=== PATIENT | female | born 1935 | race Hispanic/Latino ===

== ENCOUNTER 2018-12-20 10:22 | Inpatient (IN) | payer MEDICARE ==
[2018-12-20] MEDS ORDERED: ZOFRAN IV ONE (11:31)
[2018-12-20] MEDS ORDERED: MORPHINE IV ONE (11:31)
[2018-12-20 11:54] LABS: Hematocrit 43.1 % (30.3-42.9); Hemoglobin 14.2 gm/dl (10.1-14.3); Mean Corpuscular HGB Conc 33 % (30-34); Mean Corpuscular Volume 92 fl (79-97); Platelet Count 276 K/mm3 (140-440); Red Blood Count 4.68 M/mm3 (3.65-5.03); Red Cell Distribution Width 13.6 % (13.2-15.2)
--- NOTE | 2018-12-20 12:04 | Emergency Department Report ---
ED General Adult HPI - General Chief complaint: Abdominal Pain Stated complaint: ABD PAIN/NAUSEA,VOMITING Time Seen by Provider: 12/20/18 10:42 Source: EMS Mode of arrival: Stretcher Limitations: No Limitations - History of Present Illness Initial comments: Patient presents to the emergency department with a chief complaint of diffuse abdominal pain that started this morning. Patient complains of nausea and vomiting as well. Patient describes the pain as sharp in nature with radiation into the right upper quadrant. Patient denies any chest pain, shows blood, or headache. -: Sudden Location: abdomen Radiation: abdomen Severity scale (0 -10): 6 Quality: stabbing Consistency: constant Improves with: none Worsens with: none Associated Symptoms: denies other symptoms Treatments Prior to Arrival: none - Related Data Previous Rx's Medication Instructions Recorded Last Taken Type Albuterol Sulfate [Proair 2 puff IH Q4HR PRN #1 aer.pow.ba 01/24/16 Unknown Rx Respiclick] Pseudoephed/Codeine/Guaifen 10 ml PO Q4H PRN #100 ml 01/24/16 Unknown Rx [Cheratussin DAC 30-10-100 mg/5 ml] Azithromycin [Zithromax] 250 mg PO QDAY #6 tablet 01/25/16 Unknown Rx Prednisone [predniSONE 10 mg 10 mg PO .TAPER #1 tab.ds.pk 01/25/16 Unknown Rx (6-Day Pack, 21 Tabs)] Allergies Allergy/AdvReac Type Severity Reaction Status Date / Time No Known Allergies Allergy Verified 12/20/18 10:27 ED Review of Systems ROS: Stated complaint: ABD PAIN/NAUSEA,VOMITING Other details as noted in HPI Constitutional: denies: chills, fever Eyes: denies: eye pain, eye discharge, vision change ENT: denies: ear pain, throat pain Respiratory: denies: cough, shortness of breath, wheezing Cardiovascular: denies: chest pain, palpitations Endocrine: no symptoms reported Gastrointestinal: abdominal pain. denies: nausea, diarrhea Genitourinary: denies: urgency, dysuria, discharge Musculoskeletal: denies: back pain, joint swelling, arthralgia Skin: denies: rash, lesions Neurological: denies: headache, weakness, paresthesias Psychiatric: denies: anxiety, depression Hematological/Lymphatic: denies: easy bleeding, easy bruising ED Past Medical Hx - Past Medical History Previous Medical History?: Yes Hx Hypertension: Yes Hx Diabetes: Yes Hx GERD: Yes Additional medical history: ESOPHEGEAL - Surgical History Past Surgical History?: Yes Additional Surgical History: HYSTERECTOMY - Social History Smoking Status: Never Smoker Substance Use Type: None - Medications Home Medications: Home Medications Medication Instructions Recorded Confirmed Last Taken Type Albuterol Sulfate [Proair 2 puff IH Q4HR PRN #1 aer.pow.ba 01/24/16 Unknown Rx Respiclick] Pseudoephed/Codeine/Guaifen 10 ml PO Q4H PRN #100 ml 01/24/16 Unknown Rx [Cheratussin DAC 30-10-100 mg/5 ml] Azithromycin [Zithromax] 250 mg PO QDAY #6 tablet 01/25/16 Unknown Rx Prednisone [predniSONE 10 mg 10 mg PO .TAPER #1 tab.ds.pk 01/25/16 Unknown Rx (6-Day Pack, 21 Tabs)] ED Physical Exam - General Limitations: No Limitations General appearance: alert, in no apparent distress - Head Head exam: Present: atraumatic, normocephalic - Eye Eye exam: Present: normal appearance - ENT ENT exam: Present: mucous membranes moist - Neck Neck exam: Present: normal inspection - Respiratory Respiratory exam: Present: normal lung sounds bilaterally. Absent: respiratory distress - Cardiovascular Cardiovascular Exam: Present: regular rate, normal rhythm. Absent: systolic murmur, diastolic murmur, rubs, gallop - GI/Abdominal GI/Abdominal exam: Present: soft, tenderness (diffusely tender to palpation), normal bowel sounds. Absent: distended - Extremities Exam Extremities exam: Present: normal inspection - Back Exam Back exam: Present: normal inspection - Neurological Exam Neurological exam: Present: alert, oriented X3, CN II-XII intact. Absent: motor sensory deficit - Psychiatric Psychiatric exam: Present: normal affect, normal mood - Skin Skin exam: Present: warm, dry, intact, normal color. Absent: rash ED Course Vital Signs 12/20/18 10:27 Temperature 97.6 F Pulse Rate 58 L Respiratory 20 Rate Blood Pressure 131/69 [Left] O2 Sat by Pulse 100 Oximetry ED Medical Decision Making - Lab Data Result diagrams: 12/20/18 11:34 12/20/18 11:34 Lab Results 07/29/19 07/29/19 07/29/19 Range/Units 11:34 11:34 11:34 WBC 20.2 H (4.5-11.0) K/mm3 RBC 4.68 (3.65-5.03) M/mm3 Hgb 14.2 (10.1-14.3) gm/dl Hct 43.1 H (30.3-42.9) % MCV 92 (79-97) fl MCH 30 (28-32) pg MCHC 33 (30-34) % RDW 13.6 (13.2-15.2) % Plt Count 276 (140-440) K/mm3 Add Manual Diff Complete Total Counted 100 Seg Neuts % (Manual) 82.0 H (40.0-70.0) % Band Neutrophils % 1.0 % Lymphocytes % (Manual) 3.0 L (13.4-35.0) % Reactive Lymphs % (Man) 0 % Monocytes % (Manual) 13.0 H (0.0-7.3) % Eosinophils % (Manual) 1.0 (0.0-4.3) % Basophils % (Manual) 0 (0.0-1.8) % Metamyelocytes % 0 % Myelocytes % 0 % Promyelocytes % 0 % Blast Cells % 0 % Nucleated RBC % Not Reportable Seg Neutrophils # Man 16.6 H (1.8-7.7) K/mm3 Band Neutrophils # 0.2 K/mm3 Lymphocytes # (Manual) 0.6 L (1.2-5.4) K/mm3 Abs React Lymphs (Man) 0.0 K/mm3 Monocytes # (Manual) 2.6 H (0.0-0.8) K/mm3 Eosinophils # (Manual) 0.2 (0.0-0.4) K/mm3 Basophils # (Manual) 0.0 (0.0-0.1) K/mm3 Metamyelocytes # 0.0 K/mm3 Myelocytes # 0.0 K/mm3 Promyelocytes # 0.0 K/mm3 Blast Cells # 0.0 K/mm3 WBC Morphology Not Reportable Hypersegmented Neuts Not Reportable Hyposegmented Neuts Not Reportable Hypogranular Neuts Not Reportable Smudge Cells Not Reportable Toxic Granulation Not Reportable Toxic Vacuolation Not Reportable Dohle Bodies Not Reportable Pelger-Huet Anomaly Not Reportable Maryjane Rods Not Reportable Platelet Estimate Consistent w auto Clumped Platelets Not Reportable Plt Clumps, EDTA Not Reportable Large Platelets Not Reportable Giant Platelets Not Reportable Platelet Satelliting Not Reportable Plt Morphology Comment Not Reportable RBC Morphology Normal Dimorphic RBCs Not Reportable Polychromasia Not Reportable Hypochromasia Not Reportable Poikilocytosis Not Reportable Anisocytosis Not Reportable Microcytosis Not Reportable Macrocytosis Not Reportable Spherocytes Not Reportable Pappenheimer Bodies Not Reportable Sickle Cells Not Reportable Target Cells Not Reportable Tear Drop Cells Not Reportable Ovalocytes Not Reportable Helmet Cells Not Reportable [place] Bodies Not Reportable [place] Rings Not Reportable [place] Cells Not Reportable Bite Cells Not Reportable Crenated Cell Not Reportable Elliptocytes Not Reportable Acanthocytes (Spur) Not Reportable Rouleaux Not Reportable Hemoglobin C Crystals Not Reportable Schistocytes Not Reportable Malaria parasites Not Reportable Flo Bodies Not Reportable Hem Pathologist Commnt No PT 13.3 (12.2-14.9) Sec. INR 1.04 (0.87-1.13) APTT 22.4 L (24.2-36.6) Sec. Sodium 141 (137-145) mmol/L Potassium 4.2 (3.6-5.0) mmol/L Chloride 101.1 (98-107) mmol/L Carbon Dioxide 28 (22-30) mmol/L Anion Gap 16 mmol/L BUN 12 (7-17) mg/dL Creatinine 0.6 L (0.7-1.2) mg/dL Estimated GFR > 60 ml/min BUN/Creatinine Ratio 20 % Glucose 167 H (65-100) mg/dL Calcium 10.3 H (8.4-10.2) mg/dL Total Bilirubin 1.80 H (0.1-1.2) mg/dL AST 204 H (5-40) units/L ALT 108 H (7-56) units/L Alkaline Phosphatase 84 (35-129) units/L Total Protein 7.8 (6.3-8.2) g/dL Albumin 4.1 (3.9-5) g/dL Albumin/Globulin Ratio 1.1 % Lipase 2716 H (13-60) units/L Urine Color (Yellow) Urine Turbidity (Clear) Urine pH (5.0-7.0) Ur Specific [place] (1.003-1.030) Urine Protein (Negative) mg/dL Urine Glucose (UA) (Negative) mg/dL Urine Ketones (Negative) mg/dL Urine Blood (Negative) Urine Nitrite (Negative) Urine Bilirubin (Negative) Urine Urobilinogen (<2.0) mg/dL Ur Leukocyte Esterase (Negative) Urine WBC (Auto) (0.0-6.0) /HPF Urine RBC (Auto) (0.0-6.0) /HPF 12/20/18 Range/Units Unknown WBC (4.5-11.0) K/mm3 RBC (3.65-5.03) M/mm3 Hgb (10.1-14.3) gm/dl Hct (30.3-42.9) % MCV (79-97) fl MCH (28-32) pg MCHC (30-34) % RDW (13.2-15.2) % Plt Count (140-440) K/mm3 Add Manual Diff Total Counted Seg Neuts % (Manual) (40.0-70.0) % Band Neutrophils % % Lymphocytes % (Manual) (13.4-35.0) % Reactive Lymphs % (Man) % Monocytes % (Manual) (0.0-7.3) % Eosinophils % (Manual) (0.0-4.3) % Basophils % (Manual) (0.0-1.8) % Metamyelocytes % % Myelocytes % % Promyelocytes % % Blast Cells % % Nucleated RBC % Seg Neutrophils # Man (1.8-7.7) K/mm3 Band Neutrophils # K/mm3 Lymphocytes # (Manual) (1.2-5.4) K/mm3 Abs React Lymphs (Man) K/mm3 Monocytes # (Manual) (0.0-0.8) K/mm3 Eosinophils # (Manual) (0.0-0.4) K/mm3 Basophils # (Manual) (0.0-0.1) K/mm3 Metamyelocytes # K/mm3 Myelocytes # K/mm3 Promyelocytes # K/mm3 Blast Cells # K/mm3 WBC Morphology Hypersegmented Neuts Hyposegmented Neuts Hypogranular Neuts Smudge Cells Toxic Granulation Toxic Vacuolation Dohle Bodies Pelger-Huet Anomaly Maryjane Rods Platelet Estimate Clumped Platelets Plt Clumps, EDTA Large Platelets Giant Platelets Platelet Satelliting Plt Morphology Comment RBC Morphology Dimorphic RBCs Polychromasia Hypochromasia Poikilocytosis Anisocytosis Microcytosis Macrocytosis Spherocytes Pappenheimer Bodies Sickle Cells Target Cells Tear Drop Cells Ovalocytes Helmet Cells [place]hat[place] Bodies [place] Rings [place] Cells Bite Cells Crenated Cell Elliptocytes Acanthocytes (Spur) Rouleaux Hemoglobin C Crystals Schistocytes Malaria parasites Flo Bodies Hem Pathologist Commnt PT (12.2-14.9) Sec. INR (0.87-1.13) APTT (24.2-36.6) Sec. Sodium (137-145) mmol/L Potassium (3.6-5.0) mmol/L Chloride (98-107) mmol/L Carbon Dioxide (22-30) mmol/L Anion Gap mmol/L BUN (7-17) mg/dL Creatinine (0.7-1.2) mg/dL Estimated GFR ml/min BUN/Creatinine Ratio % Glucose (65-100) mg/dL Calcium (8.4-10.2) mg/dL Total Bilirubin (0.1-1.2) mg/dL AST (5-40) units/L ALT (7-56) units/L Alkaline Phosphatase (35-129) units/L Total Protein (6.3-8.2) g/dL Albumin (3.9-5) g/dL Albumin/Globulin Ratio % Lipase (13-60) units/L Urine Color Yellow (Yellow) Urine Turbidity Clear (Clear) Urine pH 5.0 (5.0-7.0) Ur Specific [place] 1.014 (1.003-1.030) Urine Protein 30 mg/dl (Negative) mg/dL Urine Glucose (UA) Neg (Negative) mg/dL Urine Ketones Neg (Negative) mg/dL Urine Blood Neg (Negative) Urine Nitrite Neg (Negative) Urine Bilirubin Neg (Negative) Urine Urobilinogen < 2.0 (<2.0) mg/dL Ur Leukocyte Esterase Neg (Negative) Urine WBC (Auto) 1.0 (0.0-6.0) /HPF Urine RBC (Auto) 1.0 (0.0-6.0) /HPF - Radiology Data Radiology results: report reviewed - Medical Decision Making Discussed results with patient Critical Care Time: Yes Critical care time in (mins) excluding proc time.: 35 Critical care attestation.: If time is entered above; I have spent that time in minutes in the direct care of this critically ill patient, excluding procedure time. ED Disposition Clinical Impression: Pancreatitis Disposition: [id number] OP ADMIT IP TO THIS HOSP Is pt being admited?: Yes Does the pt Need Aspirin: No Condition: Fair
[2018-12-20 12:06] LABS: INR 1.04 (0.87-1.13); Partial Thromboplastin Time 22.4 Sec. (24.2-36.6)
[2018-12-20 12:17] LABS: Alanine Aminotransferase 108 units/L (7-56); Albumin 4.1 g/dL (3.9-5); BUN/Creatinine Ratio 20; Blood Urea Nitrogen 12 mg/dL (7-17); Calcium 10.3 mg/dL (8.4-10.2); Hemolysis Index 16
[2018-12-20 12:33] LABS: Bilirubin,Urine NEG (Negative); Blood,Urine NEG (Negative); Color,Urine Yellow (Yellow); Urobilinogen,Urine < 2.0 mg/dL (<2.0)
[2018-12-20 12:44] LABS: Band Neutrophils # (Manual) 0.2 K/mm3; Basophils % (Manual) 0 % (0.0-1.8); Platelet Estimate Consistent w Auto; RBC Morphology Normal; Total Cells Counted 100
--- NOTE | 2018-12-20 14:49 | Cat Scan Report ---
CT ABDOMEN AND PELVIS WITH CONTRAST HISTORY: Abdominal pain and back pain for one day. Nausea vomiting and diarrhea. COMPARISON: None. TECHNIQUE: Axial CT images were obtained through the abdomen and pelvis after 100 cc of Omnipaque 300 intravenously. Sagittal and coronal reformatted images. All CT scans at this location are performed using CT dose reduction for ALARA by means of automated exposure control. FINDINGS: CT ABDOMEN: Lung Bases: Mild hypoventilatory changes are noted in the lower lobes. Normal heart size. Liver: No significant abnormality. Biliary: Multiple calcified gallstones are identified in the gallbladder measuring up to 1 cm. No janene iary dilatation. Spleen: Unenlarged. Numerous calcified splenic granulomas are noted. Pancreas: The pancreatic parenchyma is within normal limits on CT. There is no obvious mass or pseudo cyst. There is however moderate fluid surrounding the pancreatic bed extending into the pararenal spa gopi and perihepatic spaces. Adrenals: No significant abnormality. Kidneys: No significant abnormality. 2 cm cyst at the inferior pole of the right kidney is noted. Lymphatics: No lymphadenopathy. Vasculature: Mild aortic calcifications. No aneurysm or dissection. Bowel/Peritoneum: No significant abnormality. No evidence for bowel obstruction or free air. The appe ndix is not confidently identified. CT PELVIS: : No significant abnormality. Osseous Structures: Mild osteopenia and degenerative changes in the lower lumbar spine. No fracture o r suspicious bony lesion. Additional Findings: None IMPRESSION: Findings suggestive of acute pancreatitis. Cholelithiasis. Right renal cyst. Signer Name: Aristeo Caldera Jr, MD Signed: 12/20/2018 2:44 PM Workstation Name: [id number]
[2018-12-20] MEDS ORDERED: NACL 0.9% 1000 ML 2,000 ML IV ONE (15:31)
[2018-12-20] MEDS ORDERED: ZOSYN/NS 4.5GM/100ML 4.5 GM/100 ML VIAL IV ONE (15:31)
[2018-12-20] MEDS ORDERED: TYLENOL PO PRN (15:48)
[2018-12-20] MEDS ORDERED: SODIUM CHLORIDE FLUSH SYRINGE 10 ML IV PRN (15:48)
[2018-12-20] MEDS ORDERED: PROVENTIL IH PRN (15:48)
--- NOTE | 2018-12-20 15:48 | History and Physical Report ---
History of Present Illness Chief complaint: My stomach is hurting me really bad History of present illness: 83 YO Female with HTN, DM, GERD presents to ED for evaluation of abdominal pain. Pt states that she has experienced pain in her abdomen over the past 1 day with persistently worsening symptoms over the same time frame. Pt states that pain is 6-7/10, sharp, localized to the RUQ with radiation to her back, no alleviating factors, worsened with meals. EMS notified and upon arrival the patient was found to be in distress and transported to [facility]. Pt seen and evaluated in ED and found to have Acute Pancreatitis with a Zwingle Score of 2 on admission, as well as SIRS. Pt denies fever, chills, CP, Palpitations, Hemoptysis, BRBPR, Ingestion of food/water from new/different sources. Pt admitted to [facility] and treated with supportive care. No prior admission for review. No medication listed at time of admission for reconciliation. Past History Past Medical History: diabetes, GERD, hypertension Past Surgical History: hysterectomy Social history: , lives with family. denies: smoking, alcohol abuse, prescription drug abuse Family history: diabetes, hypertension Medications and Allergies Allergies Allergy/AdvReac Type Severity Reaction Status Date / Time No Known Allergies Allergy Verified 12/20/18 10:27 Home Medications Medication Instructions Recorded Confirmed Last Taken Type Levothyroxine [Synthroid] 50 mcg PO QAM 12/20/18 12/20/18 12/19/18 History Lisinopril [Zestril TAB] 2.5 mg PO QDAY 12/20/18 12/20/18 12/19/18 History Propranolol HCl 60 mg PO QDAY 12/20/18 12/20/18 12/19/18 History metFORMIN [Glucophage] 500 mg PO BID 12/20/18 12/20/18 12/19/18 History raNITIdine HCl [Zantac] 150 mg PO BID 12/20/18 12/20/18 12/19/18 History Active Meds: Active Medications Sodium Chloride (Nacl 0.9% 1000 Ml) 2,000 mls @ 999 mls/hr IV BOLUS ONE Stop: 12/20/18 17:31 Last Admin: 12/20/18 15:45 Dose: 999 mls/hr Documented by: Piperacillin Sod/Tazobactam Sod (Zosyn/Ns 4.5gm/100ml) 4.5 gm in 100 mls @ 200 mls/hr IV ONCE ONE Stop: 12/20/18 16:00 Last Admin: 12/20/18 15:45 Dose: 200 mls/hr Documented by: Review of Systems Constitutional: no weight loss, no weight gain, no fever, no chills Ears, nose, mouth and throat: no ear pain, no ear discharge, no tinnitis, no decreased hearing, no nose pain Breasts: no change in shape, no swelling, no mass Cardiovascular: no chest pain, no orthopnea, no palpitations, no rapid/irregular heart beat, no edema, no syncope Respiratory: no cough, no cough with sputum, no excessive sputum, no hemoptysis, no shortness of breath Gastrointestinal: abdominal pain, nausea, vomiting, no diarrhea, no constipation, no change in bowel habits Genitourinary Female: no pelvic pain, no flank pain, no menorrhagia, no dysuria, no urgency, no stress incontinence, no post void dribbling, no incomplete emptying Menstruation: no premenarcheal, no post hysterectomy, no ammenorrhea, no ammenorrhea on BC, no period normal, no period spotting Rectal: no pain, no incontinence, no bleeding Musculoskeletal: no neck stiffness, no neck pain, no shooting arm pain, no low back pain, no shooting leg pain Integumentary: no rash, no pruritis, no redness, no sores, no wounds Neurological: no transient paralysis, no paralysis, no weakness, no parathesias, no numbness, no tingling, no seizures Psychiatric: no anxiety, no memory loss, no change in sleep habits, no sleep disturbances, no insomnia, no hypersomnia, no change in appetite Endocrine: no cold intolerance, no heat intolerance, no polydipsia, no polyuria Hematologic/Lymphatic: no easy bruising, no easy bleeding Allergic/Immunologic: no urticaria, no allergic rhinitis, no wheezing, no persistent infections, no anaphylaxis Exam - Constitutional Vitals: Temp Pulse Resp BP Pulse Ox 97.6 F 58 L 20 131/69 100 12/20/18 10:27 12/20/18 10:27 12/20/18 10:27 12/20/18 10:27 12/20/18 10:27 General appearance: Present: mild distress - EENT Eyes: Present: PERRL ENT: hearing intact, clear oral mucosa - Neck Neck: Present: supple, normal ROM - Respiratory Respiratory effort: normal Respiratory: bilateral: CTA - Cardiovascular Heart Sounds: Present: S1 & S2. Absent: rub, click - Extremities Extremities: pulses symmetrical, No edema Peripheral Pulses: within normal limits - Abdominal General gastrointestinal: Present: soft, non-tender, non-distended, normal bowel sounds Female genitourinary: Present: normal - Integumentary Integumentary: Present: clear, warm, dry - Musculoskeletal Musculoskeletal: gait normal, strength equal bilaterally - Psychiatric Psychiatric: appropriate mood/affect, intact judgment & insight - Neurologic Neurologic: CNII-XII intact, moves all extremities Results - Labs CBC & Chem 7: 12/20/18 11:34 12/20/18 11:34 Labs: Abnormal lab results 12/20/18 12/20/18 12/20/18 Range/Units 11:34 11:34 11:34 WBC 20.2 H (4.5-11.0) K/mm3 Hct 43.1 H (30.3-42.9) % Seg Neuts % (Manual) 82.0 H (40.0-70.0) % Lymphocytes % (Manual) 3.0 L (13.4-35.0) % Monocytes % (Manual) 13.0 H (0.0-7.3) % Seg Neutrophils # Man 16.6 H (1.8-7.7) K/mm3 Lymphocytes # (Manual) 0.6 L (1.2-5.4) K/mm3 Monocytes # (Manual) 2.6 H (0.0-0.8) K/mm3 APTT 22.4 L (24.2-36.6) Sec. Creatinine 0.6 L (0.7-1.2) mg/dL Glucose 167 H (65-100) mg/dL Calcium 10.3 H (8.4-10.2) mg/dL Total Bilirubin 1.80 H (0.1-1.2) mg/dL AST 204 H (5-40) units/L ALT 108 H (7-56) units/L Lipase 2716 H (13-60) units/L Assessment and Plan - Patient Problems (1) SIRS (systemic inflammatory response syndrome) Current Visit: Yes Status: Acute Plan to address problem: IVF resuscitations, secondary to Acute pancreatitis, IV antibiotic therapy x 1 dose, (2) Pancreatitis Current Visit: Yes Status: Acute Qualifiers: Acute pancreatitis complication: unspecified Plan to address problem: IVF resuscitation, bowel rest, Abdominal ultrasound to evaluated for gallstone pancreatitis, pain control, anti emetic therapy, CT Abdomen Pelvis. (3) HTN (hypertension) Current Visit: Yes Status: Acute Qualifiers: Hypertension type: essential hypertension Qualified Code(s): I10 - Karon al (primary) hypertension Plan to address problem: Monitor bp q shift, continue medical management. (4) Diabetes Current Visit: Yes Status: Acute Plan to address problem: ADA diet, insulin, accu check (5) GERD (gastroesophageal reflux disease) Current Visit: Yes Status: Acute Qualifiers: Esophagitis presence: without esophagitis Qualified Code(s): K21.9 - Gastro-esophageal reflux disease without esophagitis Plan to address problem: PPI therapy, (6) DVT prophylaxis Current Visit: Yes Status: Acute Plan to address problem: SCD to BLE while in bed,
[2018-12-20] MEDS ORDERED: NACL 0.45% 2,000 ML IV SCH (16:00)
--- NOTE | 2018-12-20 17:41 | Ultrasound Report ---
ULTRASOUND ABDOMEN, COMPLETE INDICATION: Gallstones. Acute generalized abdominal pain with nausea and vomiting. COMPARISON: CT abdomen/pelvis from today.. FINDINGS: Pancreas: Pancreas appears slightly echogenic but there is no obvious mass or ductal dilatation ident ified.. Abdominal Aorta: No significant abnormality. IVC: No significant abnormality. Liver: The liver measures 14.4 cm in length. Liver is mildly echogenic in relation to the right morales l cortex with no discrete mass identified. Normal hepatopedal blood flow in the main portal vein. Gallbladder: There is cholelithiasis without gallbladder wall thickening. Bile ducts: No significant abnormality. Common bile duct measures 4 mm. Kidneys: Right: 10 cm in length. No significant abnormality. Left: 10.4 cm in length. No signific ant abnormality. Spleen: No significant abnormality. Free fluid: None. Additional Findings: None. IMPRESSION: 1. Findings of acute pancreatitis better seen on the CT abdomen from today. Incidentally, there is al so choledocholithiasis at the level of the ampulla best seen on the CT exam likely causing the pancre atitis. 2. Cholelithiasis without evidence of cholecystitis. Signer Name: Remi Buenrostro MD Signed: 12/20/2018 5:36 PM Workstation Name: [id number]
[2018-12-20] MEDS ORDERED: DILAUDID ONE (19:09)
[2018-12-20] MEDS: DILAUDID IV PRN ×2 (19:12→23:05)
[2018-12-20] MEDS: ZOFRAN IV PRN (23:04)
[2018-12-20] MEDS: NACL 0.45% 1000 ML 1,000 ML IV SCH (23:06)
[2018-12-20] MEDS: SODIUM CHLORIDE FLUSH SYRINGE 10 ML IV SCH (23:07)
[2018-12-21] MEDS: DILAUDID IV PRN ×4 (04:38→17:07)
[2018-12-21] MEDS: NACL 0.45% 1000 ML 1,000 ML IV SCH (08:30)
[2018-12-21] MEDS: ROCEPHIN/NS 1 GM/50 ML 1 GM/50 ML BAG IV SCH (09:44)
[2018-12-21] MEDS: SODIUM CHLORIDE FLUSH SYRINGE 10 ML IV SCH ×2 (09:49→22:38)
[2018-12-21 09:55] LABS: Alanine Aminotransferase 61 units/L (7-56); Albumin 3.5 g/dL (3.9-5); BUN/Creatinine Ratio 20; Blood Urea Nitrogen 10 mg/dL (7-17); Calcium 8.7 mg/dL (8.4-10.2); Hemolysis Index 2
[2018-12-21] MEDS ORDERED: PNEUMOVAX 23 IM ONE (12:00)
--- NOTE | 2018-12-21 14:09 | Progress Note ---
Assessment and Plan Assessment and plan: Acute pancreatitis likely due to gallstones Admitted to [facility] unit Dilaudisd iv prn NPO, iv fluids Lipase level improving Cholelithiasis and Choledocholithiasis I discussed with Dr. Zaldivar, GI For ERCP tomorrow also consult Surgeon Hypertension Monitior BP Diabetes mellitus type 2 fingerstick q6h Hypothyroidism Continue Levothyroxine Full code status History Interval history: Abdominal pain Hospitalist Physical - Physical exam Narrative exam: Gen: Not in acute distress, lying in bed, HEENT: Normocephalic, atraumatic Neck: supple, no JVD Heart: S1 and S2 reg, no murmurs, rubs or gallop Lungs: Clear to auscultation, no wheeze Abd: soft, tender mid abdomen, no rebound, normal BS, Ext: No edema, no clubbing, no cyanosis Neuro: Awake,alert, Oriented X 3. No focal neuro signs Psych: normal mood - Constitutional Vitals: Temp Pulse Resp BP Pulse Ox 98.3 F 64 20 144/72 98 12/21/18 02:06 12/21/18 02:06 12/21/18 11:00 12/21/18 02:06 12/21/18 11:00 Results - Labs CBC & Chem 7: 12/20/18 11:34 12/21/18 08:42 Labs: Laboratory Last Values WBC 20.2 K/mm3 (4.5-11.0) H 12/20/18 11:34 RBC 4.68 M/mm3 (3.65-5.03) 12/20/18 11:34 Hgb 14.2 gm/dl (10.1-14.3) 12/20/18 11:34 Hct 43.1 % (30.3-42.9) H 12/20/18 11:34 MCV 92 fl (79-97) 12/20/18 11:34 MCH 30 pg (28-32) 12/20/18 11:34 MCHC 33 % (30-34) 12/20/18 11:34 RDW 13.6 % (13.2-15.2) 12/20/18 11:34 Plt Count 276 K/mm3 (140-440) 12/20/18 11:34 Add Manual Diff Complete 12/20/18 11:34 Total Counted 100 12/20/18 11:34 Seg Neuts % (Manual) 82.0 % (40.0-70.0) H 12/20/18 11:34 1.0 % 12/20/18 11:34 3.0 % (13.4-35.0) L 12/20/18 11:34 Reactive Lymphs % (Man) 0 % 12/20/18 11:34 13.0 % (0.0-7.3) H 12/20/18 11:34 1.0 % (0.0-4.3) 12/20/18 11:34 0 % (0.0-1.8) 12/20/18 11:34 0 % 12/20/18 11:34 0 % 12/20/18 11:34 0 % 12/20/18 11:34 0 % 12/20/18 11:34 Nucleated RBC % Not Reportable 12/20/18 11:34 Seg Neutrophils # Man 16.6 K/mm3 (1.8-7.7) H 12/20/18 11:34 Band Neutrophils # 0.2 K/mm3 12/20/18 11:34 0.6 K/mm3 (1.2-5.4) L 12/20/18 11:34 Abs React Lymphs (Man) 0.0 K/mm3 12/20/18 11:34 2.6 K/mm3 (0.0-0.8) H 12/20/18 11:34 0.2 K/mm3 (0.0-0.4) 12/20/18 11:34 0.0 K/mm3 (0.0-0.1) 12/20/18 11:34 0.0 K/mm3 12/20/18 11:34 0.0 K/mm3 12/20/18 11:34 0.0 K/mm3 12/20/18 11:34 Blast Cells # 0.0 K/mm3 12/20/18 11:34 WBC Morphology Not Reportable 12/20/18 11:34 Hypersegmented Neuts Not Reportable 12/20/18 11:34 Hyposegmented Neuts Not Reportable 12/20/18 11:34 Hypogranular Neuts Not Reportable 12/20/18 11:34 Not Reportable 12/20/18 11:34 Not Reportable 12/20/18 11:34 Not Reportable 12/20/18 11:34 Not Reportable 12/20/18 11:34 Not Reportable 12/20/18 11:34 Not Reportable 12/20/18 11:34 Consistent w auto 12/20/18 11:34 Not Reportable 12/20/18 11:34 Plt Clumps, EDTA Not Reportable 12/20/18 11:34 Not Reportable 12/20/18 11:34 Not Reportable 12/20/18 11:34 Not Reportable 12/20/18 11:34 Plt Morphology Comment Not Reportable 12/20/18 11:34 RBC Morphology Normal 12/20/18 11:34 Dimorphic RBCs Not Reportable 12/20/18 11:34 Not Reportable 12/20/18 11:34 Not Reportable 12/20/18 11:34 Not Reportable 12/20/18 11:34 Not Reportable 12/20/18 11:34 Not Reportable 12/20/18 11:34 Not Reportable 12/20/18 11:34 Not Reportable 12/20/18 11:34 Not Reportable 12/20/18 11:34 Not Reportable 12/20/18 11:34 Not Reportable 12/20/18 11:34 Not Reportable 12/20/18 11:34 Not Reportable 12/20/18 11:34 Not Reportable 12/20/18 11:34 Not Reportable 12/20/18 11:34 Not Reportable 12/20/18 11:34 Not Reportable 12/20/18 11:34 Not Reportable 12/20/18 11:34 Not Reportable 12/20/18 11:34 Not Reportable 12/20/18 11:34 Acanthocytes (Spur) Not Reportable 12/20/18 11:34 Rouleaux Not Reportable 12/20/18 11:34 Not Reportable 12/20/18 11:34 Not Reportable 12/20/18 11:34 Not Reportable 12/20/18 11:34 Not Reportable 12/20/18 11:34 Hem Pathologist Commnt No 12/20/18 11:34 PT 13.3 Sec. (12.2-14.9) 12/20/18 11:34 INR 1.04 (0.87-1.13) 12/20/18 11:34 APTT 22.4 Sec. (24.2-36.6) L 12/20/18 11:34 Sodium 141 mmol/L (137-145) 12/21/18 08:42 Potassium 3.9 mmol/L (3.6-5.0) 12/21/18 08:42 Chloride 102.3 mmol/L (98-107) 12/21/18 08:42 Carbon Dioxide 27 mmol/L (22-30) 12/21/18 08:42 16 mmol/L 12/21/18 08:42 BUN 10 mg/dL (7-17) 12/21/18 08:42 0.5 mg/dL (0.7-1.2) L 12/21/18 08:42 Estimated GFR > 60 ml/min 12/21/18 08:42 20 % 12/21/18 08:42 Glucose 111 mg/dL (65-100) H 12/21/18 08:42 Calcium 8.7 mg/dL (8.4-10.2) D 12/21/18 08:42 1.70 mg/dL (0.1-1.2) H 12/21/18 08:42 AST 56 units/L (5-40) H 12/21/18 08:42 ALT 61 units/L (7-56) H 12/21/18 08:42 71 units/L (35-129) 12/21/18 08:42 301 units/L (91-180) H 12/20/18 11:34 6.7 g/dL (6.3-8.2) 12/21/18 08:42 3.5 g/dL (3.9-5) L 12/21/18 08:42 1.1 % 12/21/18 08:42 494 units/L (13-60) H 12/21/18 04:47 Yellow (Yellow) 12/20/18 Unknown Clear (Clear) 12/20/18 Unknown 5.0 (5.0-7.0) 12/20/18 Unknown Ur Specific [place] 1.014 (1.003-1.030) 12/20/18 Unknown 30 mg/dl mg/dL (Negative) 12/20/18 Unknown Neg mg/dL (Negative) 12/20/18 Unknown Neg mg/dL (Negative) 12/20/18 Unknown Neg (Negative) 12/20/18 Unknown Neg (Negative) 12/20/18 Unknown Neg (Negative) 12/20/18 Unknown < 2.0 mg/dL (<2.0) 12/20/18 Unknown Ur Leukocyte Esterase Neg (Negative) 12/20/18 Unknown 1.0 /HPF (0.0-6.0) 12/20/18 Unknown 1.0 /HPF (0.0-6.0) 12/20/18 Unknown Active Medications - Current Medications Current Medications: Generic Name Dose Route Start Last Admin Trade Name Freq PRN Reason Stop Dose Admin Acetaminophen 650 mg 12/20/18 15:48 Tylenol PO Q4H PRN Pain MILD(1-3)/Fever >100.5/LEE Albuterol 2.5 mg 12/20/18 15:48 Proventil IH Q4HRT PRN Shortness Of Breath Hydromorphone HCl 0.5 mg 12/20/18 15:48 12/21/18 08:30 Dilaudid IV 0.5 mg Q3H PRN Administration Pain , Severe (7-10) Ceftriaxone Sodium 1 gm in 50 mls @ 100 mls/hr 12/21/18 10:00 12/21/18 09:44 Rocephin/Ns 1 Gm/50 Ml IV 100 mls/hr Q24HR ANGEL Administration Protocol Sodium Chloride 1,000 mls @ 100 mls/hr 12/20/18 23:00 12/21/18 08:30 Nacl 0.45% 1000 Ml IV 12/22/18 08:59 100 mls/hr DIRECT ANGEL Administration Ondansetron HCl 4 mg 12/20/18 15:48 12/20/18 23:04 Zofran IV 4 mg Q8H PRN Administration Nausea And Vomiting Pneumococcal Polyvalent Vaccine 0.5 ml 12/22/18 12:00 Pneumovax 23 IM 12/22/18 12:01 .ONCE ONE Sodium Chloride 10 ml 12/20/18 22:00 12/21/18 09:49 Sodium Chloride Flush Syringe 10 Ml IV 10 ml BID ANGEL Administration Sodium Chloride 10 ml 12/20/18 15:48 Sodium Chloride Flush Syringe 10 Ml IV PRN PRN LINE FLUSH
[2018-12-21] MEDS: ZOFRAN IV PRN (14:30)
[2018-12-21] MEDS ORDERED: DILAUDID IV ONE (16:55)
--- NOTE | 2018-12-21 17:01 | Consultation ---
History of Present Illness - Reason for Consult Consult date: 12/21/18 Pancreatitis Requesting physician: YANDEL MCFADDEN - History of Present Illness Mrs. Schilling is an 83-year-old woman who was admitted yesterday with acute onset of right upper quadrant abdominal pain and epigastric pain radiating to the back. She did with nausea. In the emergency room, she was determined to have pancreatitis with a markedly elevated lipase and elevated liver enzymes. CT confirmed fluid around the pancreas suggestive of pancreatitis. CT also showed what appeared to be distal common bile duct filling defects consistent with gallstones. Gallbladder ultrasound was performed which showed gallstones and a nondilated common bile duct. GI consult is obtained for further evaluation. Patient's and son are in room. There is no prior history of abdominal pain or fatty food intolerance. There is no history of weight loss fevers chills or sweats. There is no history of GI bleed. Currently, patient complains of epigastric pain that is waxing and waning. She apparently is not markedly improved compared to yesterday, even though her liver enzymes and pancreatic enzymes are down markedly. Of note, patient has a history of esophageal stricture requiring dilation in the past several times. Last was 4 years ago. She denies dysphagia present. Meds reviewed. Past History Past Medical History: diabetes, GERD, hypertension Past Surgical History: hysterectomy, Other (EGD/dilation - Dr. Sampson, 2015 - for stricture) Social history: , lives with family. denies: smoking, alcohol abuse, prescription drug abuse Family history: diabetes, hypertension Medications and Allergies Allergies Allergy/AdvReac Type Severity Reaction Status Date / Time No Known Allergies Allergy Verified 12/20/18 10:27 Home Medications Medication Instructions Recorded Confirmed Last Taken Type Levothyroxine [Synthroid] 50 mcg PO QAM 12/20/18 12/20/18 12/19/18 History Lisinopril [Zestril TAB] 2.5 mg PO QDAY 12/20/18 12/20/18 12/19/18 History Propranolol HCl 60 mg PO QDAY 12/20/18 12/20/18 12/19/18 History metFORMIN [Glucophage] 500 mg PO BID 12/20/18 12/20/18 12/19/18 History raNITIdine HCl [Zantac] 150 mg PO BID 12/20/18 12/20/18 12/19/18 History Active Meds: Active Medications Acetaminophen (Tylenol) 650 mg PO Q4H PRN PRN Reason: Pain MILD(1-3)/Fever >100.5/LEE Albuterol (Proventil) 2.5 mg IH Q4HRT PRN PRN Reason: Shortness Of Breath Hydromorphone HCl (Dilaudid) 0.5 mg IV Q3H PRN PRN Reason: Pain , Severe (7-10) Last Admin: 12/21/18 14:27 Dose: 0.5 mg Documented by: Ceftriaxone Sodium (Rocephin/Ns 1 Gm/50 Ml) 1 gm in 50 mls @ 100 mls/hr IV Q24HR ANGEL; Protocol Last Admin: 12/21/18 09:44 Dose: 100 mls/hr Documented by: Sodium Chloride (Nacl 0.45% 1000 Ml) 1,000 mls @ 100 mls/hr IV DIRECT ANGEL Stop: 12/22/18 08:59 Last Admin: 12/21/18 08:30 Dose: 100 mls/hr Documented by: Ondansetron HCl (Zofran) 4 mg IV Q8H PRN PRN Reason: Nausea And Vomiting Last Admin: 12/21/18 14:30 Dose: 4 mg Documented by: Pneumococcal Polyvalent Vaccine (Pneumovax 23) 0.5 ml IM .ONCE ONE Stop: 12/22/18 12:01 Sodium Chloride (Sodium Chloride Flush Syringe 10 Ml) 10 ml IV BID ANGEL Last Admin: 12/21/18 09:49 Dose: 10 ml Documented by: Sodium Chloride (Sodium Chloride Flush Syringe 10 Ml) 10 ml IV PRN PRN PRN Reason: LINE FLUSH Review of Systems All systems: negative (as noted in HPI) Exam - Constitutional Vitals: Temp Pulse Resp BP Pulse Ox 99.4 F 81 19 135/68 93 12/21/18 14:05 12/21/18 14:05 12/21/18 14:05 12/21/18 14:05 12/21/18 14:05 General appearance: Present: mild distress - EENT Eyes: Present: PERRL, EOM intact ENT: hearing intact - Respiratory Respiratory effort: normal Respiratory: bilateral: CTA - Cardiovascular Rhythm: regular Heart Sounds: Present: S1 & S2 - Extremities Extremities: No edema - Abdominal General gastrointestinal: Present: soft, tender (mild in epigastrium), normal bowel sounds Results - Labs CBC & Chem 7: 12/20/18 11:34 12/21/18 08:42 Labs: Abnormal lab results 12/21/18 12/21/18 Range/Units 04:47 08:42 Creatinine 0.5 L (0.7-1.2) mg/dL Glucose 111 H (65-100) mg/dL Total Bilirubin 1.70 H (0.1-1.2) mg/dL AST 56 H (5-40) units/L ALT 61 H (7-56) units/L Albumin 3.5 L (3.9-5) g/dL Lipase 494 H (13-60) units/L - Imaging and Cardiology CT scan - abdomen: image reviewed (with Radiologist. Stones noted in distal CBD.) US - abdomen: report reviewed, image reviewed Assessment and Plan 1. Gallstone pancreatitisliver enzymes and lipase are down markedly. However, patient has waxing and waning pain suggestive of persistent choledocholithiasis. We will plan on ERCP tomorrow unless patient has marked improvement in symptoms and ongoing improvement in liver enzymes. If that is the case, MRCP, or cholecystectomy with intraoperative cholangiogram can be considered. - Pain management and keep nothing by mouth - Continue antibodies to preclude cholangitis - ERCP tomorrow unless as noted above. - Agree with surgical consultation for eventual cholecystectomy. Plans, risks, benefits, discussed with patient and her family.
[2018-12-21] MEDS ORDERED: DILAUDID IV PRN (17:06)
--- NOTE | 2018-12-21 17:20 | Consultation ---
History of Present Illness Consult date: 12/21/18 Reason for consult: gallstones Chief complaint: abdominal pain - History of present illness History of present illness: 83 yo F with hx of DM presents to ER with c/o abdominal pain. Pain is diffuse, sharp, and radiates to the back. It is the first episode. +n/v. No f/c. She does not know if there are any alleviating or exacerbating factors. She is a poor historian. Past History Past Medical History: diabetes, GERD, hypertension Past Surgical History: hysterectomy, Other (EGD/dilation - Dr. Sampson, 2015 - for stricture) Social history: , lives with family. denies: smoking, alcohol abuse, prescription drug abuse Family history: diabetes, hypertension Medications and Allergies Allergies Allergy/AdvReac Type Severity Reaction Status Date / Time No Known Allergies Allergy Verified 12/20/18 10:27 Home Medications Medication Instructions Recorded Confirmed Last Taken Type Levothyroxine [Synthroid] 50 mcg PO QAM 12/20/18 12/20/18 12/19/18 History Lisinopril [Zestril TAB] 2.5 mg PO QDAY 12/20/18 12/20/18 12/19/18 History Propranolol HCl 60 mg PO QDAY 12/20/18 12/20/18 12/19/18 History metFORMIN [Glucophage] 500 mg PO BID 12/20/18 12/20/18 12/19/18 History raNITIdine HCl [Zantac] 150 mg PO BID 12/20/18 12/20/18 12/19/18 History Active Meds: Active Medications Acetaminophen (Tylenol) 650 mg PO Q4H PRN PRN Reason: Pain MILD(1-3)/Fever >100.5/LEE Albuterol (Proventil) 2.5 mg IH Q4HRT PRN PRN Reason: Shortness Of Breath Hydromorphone HCl (Dilaudid) 0.5 mg IV Q3H PRN PRN Reason: Pain , Severe (7-10) Last Admin: 12/21/18 17:07 Dose: 0.5 mg Documented by: Ceftriaxone Sodium (Rocephin/Ns 1 Gm/50 Ml) 1 gm in 50 mls @ 100 mls/hr IV Q24HR ANGEL; Protocol Last Admin: 12/21/18 09:44 Dose: 100 mls/hr Documented by: Sodium Chloride (Nacl 0.45% 1000 Ml) 1,000 mls @ 100 mls/hr IV DIRECT ANGEL Stop: 12/22/18 08:59 Last Admin: 12/21/18 08:30 Dose: 100 mls/hr Documented by: Ondansetron HCl (Zofran) 4 mg IV Q8H PRN PRN Reason: Nausea And Vomiting Last Admin: 12/21/18 14:30 Dose: 4 mg Documented by: Pneumococcal Polyvalent Vaccine (Pneumovax 23) 0.5 ml IM .ONCE ONE Stop: 12/22/18 12:01 Sodium Chloride (Sodium Chloride Flush Syringe 10 Ml) 10 ml IV BID ANGEL Last Admin: 12/21/18 09:49 Dose: 10 ml Documented by: Sodium Chloride (Sodium Chloride Flush Syringe 10 Ml) 10 ml IV PRN PRN PRN Reason: LINE FLUSH Review of Systems All systems: negative (10 pt ROS performed and negative except for that listed in HPI) Exam Vital Signs Temp Pulse Resp BP Pulse Ox 97.6 F 58 L 20 131/69 100 12/20/18 10:27 12/20/18 10:27 12/20/18 10:27 12/20/18 10:27 12/20/18 10:27 Narrative exam: Gen; AAOx3. NAD. confused at times ENT: no scleral icterus or conjunctival pallor CV: S1, S2+ Resp: even and unlabored Abd: soft, ND, diffusely tender. No r/r/g. Ext: no c/c/e Results - Labs 12/20/18 11:34 12/21/18 08:42 Abnormal lab results 12/21/18 12/21/18 Range/Units 04:47 08:42 Creatinine 0.5 L (0.7-1.2) mg/dL Glucose 111 H (65-100) mg/dL Total Bilirubin 1.70 H (0.1-1.2) mg/dL AST 56 H (5-40) units/L ALT 61 H (7-56) units/L Albumin 3.5 L (3.9-5) g/dL Lipase 494 H (13-60) units/L Diabetes panel 12/21/18 Range/Units 08:42 Sodium 141 (137-145) mmol/L Potassium 3.9 (3.6-5.0) mmol/L Chloride 102.3 (98-107) mmol/L Carbon Dioxide 27 (22-30) mmol/L BUN 10 (7-17) mg/dL Creatinine 0.5 L (0.7-1.2) mg/dL Glucose 111 H (65-100) mg/dL Calcium 8.7 D (8.4-10.2) mg/dL AST 56 H (5-40) units/L ALT 61 H (7-56) units/L Alkaline Phosphatase 71 (35-129) units/L Total Protein 6.7 (6.3-8.2) g/dL Albumin 3.5 L (3.9-5) g/dL Calcium panel 12/21/18 Range/Units 08:42 Calcium 8.7 D (8.4-10.2) mg/dL Albumin 3.5 L (3.9-5) g/dL Pituitary panel 12/21/18 Range/Units 08:42 Sodium 141 (137-145) mmol/L Potassium 3.9 (3.6-5.0) mmol/L Chloride 102.3 (98-107) mmol/L Carbon Dioxide 27 (22-30) mmol/L BUN 10 (7-17) mg/dL Creatinine 0.5 L (0.7-1.2) mg/dL Glucose 111 H (65-100) mg/dL Calcium 8.7 D (8.4-10.2) mg/dL Adrenal panel 12/21/18 Range/Units 08:42 Sodium 141 (137-145) mmol/L Potassium 3.9 (3.6-5.0) mmol/L Chloride 102.3 (98-107) mmol/L Carbon Dioxide 27 (22-30) mmol/L BUN 10 (7-17) mg/dL Creatinine 0.5 L (0.7-1.2) mg/dL Glucose 111 H (65-100) mg/dL Calcium 8.7 D (8.4-10.2) mg/dL Total Bilirubin 1.70 H (0.1-1.2) mg/dL AST 56 H (5-40) units/L ALT 61 H (7-56) units/L Alkaline Phosphatase 71 (35-129) units/L Total Protein 6.7 (6.3-8.2) g/dL Albumin 3.5 L (3.9-5) g/dL - Imaging CT scan - abdomen: report reviewed, image reviewed CT scan - pelvis: report reviewed, image reviewed US - abdomen: report reviewed, image reviewed Assessment and Plan 83 yo F with 1. choledocolithiasis 2. gallstone pancreatitis Plan: 1. NPO 2. trend lipase, LFTs, bilirubin 3. Gi consult noted - patient scheduled for ERCP tomorrow 4. prn pain and nausea control 5. repeat CBC in am 6. IVF 7. recommend cholecystectomy prior to discharge. Discussed with patient and she is agreeable. Thank you, please call with questions
[2018-12-21] MEDS: PROTONIX IV SCH (18:25)
[2018-12-21] MEDS: NACL 0.9% 1000 ML 1,000 ML IV SCH (18:30)
[2018-12-22] MEDS: DILAUDID IV PRN ×3 (00:49→22:27)
[2018-12-22 00:52] LABS: Hematocrit 38.5 % (30.3-42.9); Hemoglobin 12.9 gm/dl (10.1-14.3); Mean Corpuscular HGB Conc 33 % (30-34); Mean Corpuscular Volume 91 fl (79-97); Platelet Count 216 K/mm3 (140-440); Red Blood Count 4.25 M/mm3 (3.65-5.03); Red Cell Distribution Width 13.6 % (13.2-15.2)
[2018-12-22 01:06] LABS: INR 1.26 (0.87-1.13)
[2018-12-22 01:19] LABS: Alanine Aminotransferase 46 units/L (7-56); Albumin 3.3 g/dL (3.9-5); BUN/Creatinine Ratio 16; Blood Urea Nitrogen 8 mg/dL (7-17); Calcium 8.6 mg/dL (8.4-10.2); Hemolysis Index 1
[2018-12-22] MEDS: NACL 0.9% 1000 ML 1,000 ML IV SCH (05:12)
[2018-12-22] MEDS: ROCEPHIN/NS 1 GM/50 ML 1 GM/50 ML BAG IV SCH (09:39)
[2018-12-22] MEDS: PROTONIX IV SCH (09:39)
[2018-12-22] MEDS: SODIUM CHLORIDE FLUSH SYRINGE 10 ML IV SCH ×2 (09:39→22:28)
[2018-12-22] MEDS ORDERED: NACL 0.9% 100 ML ONE (10:10)
[2018-12-22] MEDS ORDERED: WATER FOR IRRIG STERILE IR ONE (10:10)
[2018-12-22] MEDS ORDERED: NACL 0.9% 1000 ML 1,000 ML ONE (10:21)
--- NOTE | 2018-12-22 10:21 | Progress Note ---
Assessment and Plan Assessment and plan: Acute pancreatitis likely due to gallstones Admitted to [facility] unit Dilaudid iv prn NPO, iv fluids Lipase level improving Cholelithiasis and Choledocholithiasis I discussed with Dr. Zaldivar, GI For ERCP today Surgeon following Leukocytosis Will consult ID Physician Hypertension Monitior BP Diabetes mellitus type 2 fingerstick q6h Hypothyroidism Continue Levothyroxine Full code status History Interval history: Abdominal pain Hospitalist Physical - Physical exam Narrative exam: Gen: Not in acute distress, lying in bed, HEENT: Normocephalic, atraumatic Neck: supple, no JVD Heart: S1 and S2 reg, no murmurs, rubs or gallop Lungs: Clear to auscultation, no wheeze Abd: soft, tender mid abdomen, no rebound, normal BS, Ext: No edema, no clubbing, no cyanosis Neuro: Awake,alert, Oriented X 3. No focal neuro signs Psych: normal mood - Constitutional Vitals: Temp Pulse Resp BP Pulse Ox 98.4 F 93 H 18 136/74 94 12/22/18 07:54 12/22/18 07:54 12/22/18 07:54 12/22/18 07:54 12/22/18 08:00 Results - Labs CBC & Chem 7: 12/22/18 00:21 12/22/18 00:21 Labs: Laboratory Last Values WBC 23.9 K/mm3 (4.5-11.0) H 12/22/18 00:21 RBC 4.25 M/mm3 (3.65-5.03) 12/22/18 00:21 Hgb 12.9 gm/dl (10.1-14.3) 12/22/18 00:21 Hct 38.5 % (30.3-42.9) 12/22/18 00:21 MCV 91 fl (79-97) 12/22/18 00:21 MCH 30 pg (28-32) 12/22/18 00:21 MCHC 33 % (30-34) 12/22/18 00:21 RDW 13.6 % (13.2-15.2) 12/22/18 00:21 Plt Count 216 K/mm3 (140-440) 12/22/18 00:21 Add Manual Diff Complete 12/20/18 11:34 Total Counted 100 12/20/18 11:34 Seg Neuts % (Manual) 82.0 % (40.0-70.0) H 12/20/18 11:34 1.0 % 12/20/18 11:34 3.0 % (13.4-35.0) L 12/20/18 11:34 Reactive Lymphs % (Man) 0 % 12/20/18 11:34 13.0 % (0.0-7.3) H 12/20/18 11:34 1.0 % (0.0-4.3) 12/20/18 11:34 0 % (0.0-1.8) 12/20/18 11:34 0 % 12/20/18 11:34 0 % 12/20/18 11:34 0 % 12/20/18 11:34 0 % 12/20/18 11:34 Nucleated RBC % Not Reportable 12/20/18 11:34 Seg Neutrophils # Man 16.6 K/mm3 (1.8-7.7) H 12/20/18 11:34 Band Neutrophils # 0.2 K/mm3 12/20/18 11:34 0.6 K/mm3 (1.2-5.4) L 12/20/18 11:34 Abs React Lymphs (Man) 0.0 K/mm3 12/20/18 11:34 2.6 K/mm3 (0.0-0.8) H 12/20/18 11:34 0.2 K/mm3 (0.0-0.4) 12/20/18 11:34 0.0 K/mm3 (0.0-0.1) 12/20/18 11:34 0.0 K/mm3 12/20/18 11:34 0.0 K/mm3 12/20/18 11:34 0.0 K/mm3 12/20/18 11:34 Blast Cells # 0.0 K/mm3 12/20/18 11:34 WBC Morphology Not Reportable 12/20/18 11:34 Hypersegmented Neuts Not Reportable 12/20/18 11:34 Hyposegmented Neuts Not Reportable 12/20/18 11:34 Hypogranular Neuts Not Reportable 12/20/18 11:34 Not Reportable 12/20/18 11:34 Not Reportable 12/20/18 11:34 Not Reportable 12/20/18 11:34 Not Reportable 12/20/18 11:34 Not Reportable 12/20/18 11:34 Not Reportable 12/20/18 11:34 Consistent w auto 12/20/18 11:34 Not Reportable 12/20/18 11:34 Plt Clumps, EDTA Not Reportable 12/20/18 11:34 Not Reportable 12/20/18 11:34 Not Reportable 12/20/18 11:34 Not Reportable 12/20/18 11:34 Plt Morphology Comment Not Reportable 12/20/18 11:34 RBC Morphology Normal 12/20/18 11:34 Dimorphic RBCs Not Reportable 12/20/18 11:34 Not Reportable 12/20/18 11:34 Not Reportable 12/20/18 11:34 Not Reportable 12/20/18 11:34 Not Reportable 12/20/18 11:34 Not Reportable 12/20/18 11:34 Not Reportable 12/20/18 11:34 Not Reportable 12/20/18 11:34 Not Reportable 12/20/18 11:34 Not Reportable 12/20/18 11:34 Not Reportable 12/20/18 11:34 Not Reportable 12/20/18 11:34 Not Reportable 12/20/18 11:34 Not Reportable 12/20/18 11:34 Not Reportable 12/20/18 11:34 Not Reportable 12/20/18 11:34 Not Reportable 12/20/18 11:34 Not Reportable 12/20/18 11:34 Not Reportable 12/20/18 11:34 Not Reportable 12/20/18 11:34 Acanthocytes (Spur) Not Reportable 12/20/18 11:34 Rouleaux Not Reportable 12/20/18 11:34 Not Reportable 12/20/18 11:34 Not Reportable 12/20/18 11:34 Not Reportable 12/20/18 11:34 Not Reportable 12/20/18 11:34 Hem Pathologist Commnt No 12/20/18 11:34 PT 15.5 Sec. (12.2-14.9) H 12/22/18 00:21 INR 1.26 (0.87-1.13) H 12/22/18 00:21 APTT 22.4 Sec. (24.2-36.6) L 12/20/18 11:34 Sodium 141 mmol/L (137-145) 12/22/18 00:21 Potassium 3.7 mmol/L (3.6-5.0) 12/22/18 00:21 Chloride 102.7 mmol/L (98-107) 12/22/18 00:21 Carbon Dioxide 25 mmol/L (22-30) 12/22/18 00:21 17 mmol/L 12/22/18 00:21 BUN 8 mg/dL (7-17) 12/22/18 00:21 0.5 mg/dL (0.7-1.2) L 12/22/18 00:21 Estimated GFR > 60 ml/min 12/22/18 00:21 16 % 12/22/18 00:21 Glucose 106 mg/dL (65-100) H 12/22/18 00:21 POC Glucose 99 (70-105) 12/22/18 00:10 Calcium 8.6 mg/dL (8.4-10.2) 12/22/18 00:21 1.70 mg/dL (0.1-1.2) H 12/22/18 00:21 AST 40 units/L (5-40) 12/22/18 00:21 ALT 46 units/L (7-56) 12/22/18 00:21 70 units/L (35-129) 12/22/18 00:21 301 units/L (91-180) H 12/20/18 11:34 6.6 g/dL (6.3-8.2) 12/22/18 00:21 3.3 g/dL (3.9-5) L 12/22/18 00:21 1.0 % 12/22/18 00:21 147 units/L (13-60) H 12/22/18 00:21 Yellow (Yellow) 12/20/18 Unknown Clear (Clear) 12/20/18 Unknown 5.0 (5.0-7.0) 12/20/18 Unknown Ur Specific [place] 1.014 (1.003-1.030) 12/20/18 Unknown 30 mg/dl mg/dL (Negative) 12/20/18 Unknown Neg mg/dL (Negative) 12/20/18 Unknown Neg mg/dL (Negative) 12/20/18 Unknown Neg (Negative) 12/20/18 Unknown Neg (Negative) 12/20/18 Unknown Neg (Negative) 12/20/18 Unknown < 2.0 mg/dL (<2.0) 12/20/18 Unknown Ur Leukocyte Esterase Neg (Negative) 12/20/18 Unknown 1.0 /HPF (0.0-6.0) 12/20/18 Unknown 1.0 /HPF (0.0-6.0) 12/20/18 Unknown Active Medications - Current Medications Current Medications: Generic Name Dose Route Start Last Admin Trade Name Freq PRN Reason Stop Dose Admin Acetaminophen 650 mg 12/20/18 15:48 Tylenol PO Q4H PRN Pain MILD(1-3)/Fever >100.5/LEE Albuterol 2.5 mg 12/20/18 15:48 Proventil IH Q4HRT PRN Shortness Of Breath Hydromorphone HCl 0.5 mg 12/20/18 15:48 12/22/18 06:47 Dilaudid IV 0.5 mg Q3H PRN Administration Pain , Severe (7-10) Ceftriaxone Sodium 1 gm in 50 mls @ 100 mls/hr 12/21/18 10:00 12/22/18 09:39 Rocephin/Ns 1 Gm/50 Ml IV 100 mls/hr Q24HR ANGEL Administration Protocol Sodium Chloride 1,000 mls @ 100 mls/hr 12/21/18 18:00 12/22/18 05:12 Nacl 0.9% 1000 Ml IV 100 mls/hr DIRECT ANGEL Administration Ondansetron HCl 4 mg 12/20/18 15:48 12/21/18 14:30 Zofran IV 4 mg Q8H PRN Administration Nausea And Vomiting Pantoprazole Sodium 40 mg 12/21/18 18:00 12/22/18 09:39 Protonix IV 40 mg QDAY ANGEL Administration Pneumococcal Polyvalent Vaccine 0.5 ml 12/22/18 12:00 Pneumovax 23 IM 12/22/18 12:01 .ONCE ONE Sodium Chloride 10 ml 12/20/18 22:00 12/22/18 09:39 Sodium Chloride Flush Syringe 10 Ml IV 10 ml BID ANGEL Administration Sodium Chloride 10 ml 12/20/18 15:48 Sodium Chloride Flush Syringe 10 Ml IV PRN PRN LINE FLUSH Nutrition/Malnutrition Assess - Dietary Evaluation Nutrition/Malnutrition Findings: Nutrition Notes Start: 12/21/18 14:08 Freq: Status: Active Protocol: Document 12/21/18 14:08 ASHLYN (Rec: 12/21/18 14:13 ASHLYN [email or web address]) Nutrition Notes Need for Assessment generated from: director of 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 Pt admitted with c/o abd pain. She is receiving care at time of visit (11:10). Burn Absent Trauma Absent #1 Nutrition Diagnosis Altered GI function Etiology acute pancreatitis As Evidenced by Signs and Symptoms pt c/o abd pain and is NPO Is patient on ventilator? No Is Patient Ambulatory and/or Out of Bed No REE-([place]-St. Jeor-confined to bed) [phone] Calculation Used for Recommendations [place] Jeor Additional Notes Pro needs 1-1.2g/k-74g/ day Fluid needs 1ml/kcal Nutrition Intervention Change Diet Order: Diet advancement when medically feasible Goal #1 Advance diet to meet nutrient needs Anticipated Discharge Needs: Unable to identify at this time Follow-Up By: 12/24/18 Additional Comments F/U: diet advancement, MST assessment
[2018-12-22] MEDS ORDERED: KETALAR ONE (10:28)
[2018-12-22] MEDS ORDERED: DIPRIVAN 10 MG/ML IV ONE ×2 (10:28→12:05)
[2018-12-22] MEDS ORDERED: VERSED ONE (10:28)
[2018-12-22] MEDS ORDERED: XYLOCAINE MPF 2% ONE (10:28)
--- NOTE | 2018-12-22 10:56 | Anesthesia Day of Surgery ---
Anesthesia Day of Surgery - Day of Surgery Patient Examined: Yes Patient H&P Reviewed: Yes Patient is NPO: Yes
--- NOTE | 2018-12-22 10:58 | Anesthesia Consultation ---
Anesthesia Consult and Med Hx Date of service: 12/22/18 - Airway Anesthetic Teeth Evaluation: Good ROM Head & Neck: Adequate Mental/Hyoid Distance: Adequate Mallampati Class: Class III Intubation Access Assessment: Probably Good - Pre-Operative Health Status ASA Pre-Surgery Classification: ASA3 Proposed Anesthetic Plan: MAC - Cardiovascular System Hx Hypertension: Yes - Gastrointestinal Hx Gastroesophageal Reflux Disease: Yes (Acute pancreatitis) - Endocrine Hx Non-Insulin Dependent Diabetes: Yes Hx Thyroid Disease: Yes Hx Hypothyroidism: Yes
[2018-12-22] MEDS ORDERED: PNEUMOVAX 23 IM ONE (12:00)
--- NOTE | 2018-12-22 12:28 | Post Operative Note ---
Pre-op diagnosis: Abnormal CT with stone in ampulla Post-op diagnosis: other (Edematous, stenotic major papilla, o/w ERCP) Findings: 1. Edematous papilla 2. Normal pancreatic duct 3. Normal biliary tree, with stones in CBD. Papillotomy had to be done to access biliary tree. Procedure: ERCP with sphincterotomy Anesthesia: MAC Surgeon: NANDO BOWERS Estimated blood loss: none Pathology: none Condition: stable Disposition: floor (Monitor for complications, and proceed with CCY as per Surgery)
--- NOTE | 2018-12-22 12:44 | Operative Report ---
PROCEDURE: ERCP with sphincterotomy. PREOPERATIVE DIAGNOSIS: Stone in ampulla and gallstone pancreatitis. POSTOPERATIVE DIAGNOSIS: Edematous stenotic major papilla with normal ERCP. SEDATION: MAC by Anesthesia. HISTORY: The patient is an 83-year-old woman who presented with gallstone pancreatitis and abnormal liver enzymes. CT showed stone in the ampulla. Liver enzymes normalized, but the patient had ongoing pain and white count clotilde. After lengthy discussion with family and surgeon, the decision made to proceed with ERCP. DESCRIPTION OF PROCEDURE: Indications, risks, and benefits were explained and consent was obtained. The patient was placed on abdomen on fluoroscopy table and sedated. Video duodenoscope was passed through the mouth and oropharynx into the descending duodenum. Scope was then gradually withdrawn with close inspection of mucosa until the major papilla was visualized. Selective cannulation of the pancreatic duct was initially achieved using the fusion sphincterotome and guidewire. After a precut papillotomy, with the wire in the pancreatic duct, the common bile duct was cannulated. FINDINGS: 1. Edematous duodenum with otherwise normal major papilla. 2. Pancreatic duct was normal in course and caliber. 3. Biliary tree is normal in course and caliber with stones noted in either the neck of the gallbladder or cystic duct. Biliary tree shows no evidence of filling defects. A 6 mm biliary sphincterotomy was completed as a precut papillotomy had been initiated from the pancreatic duct with a wire in the pancreatic duct. The patient tolerated the procedure well without immediate complication. IMPRESSION: 1. Duodenal and periampullary edema. 2. Likely stenotic major papilla. 3. Normal pancreatic duct. 4. Normal common bile duct. PLAN: 1. Monitor for complications. 2. Proceed with cholecystectomy as per surgery. JOB# [id number] HRC/NTS
[2018-12-22] MEDS ORDERED: LACTATED RINGERS 1,000 ML ONE (12:49)
--- NOTE | 2018-12-22 12:51 | History and Physical Report ---
History of Present Illness Date of examination: 12/22/18 Date of admission: 12/20/18 15:48 Chief complaint: Cholecystitis History of present illness: 83 yo F PMHx HTn, DM, GERD presented to the hospital due to abdominal pain. This pain began the day prior to admission and became progressively worse leading to her presentation. She notes the pain is mostly in her right upper quadrant and radiates to her back, and is worse with food. As the pain as a 6 out of 10. She denies any fevers, sweats, chills, or any other systemic infective symptoms. The ER she was found to have acute pancreatitis on CT, and ultrasound revealed choledocholithiasis. Complains of distension from the ERCp, but no other major concerns at this time. She has been afebrile since admission with an elevated white count 23. She is currently receiving ceftriaxone. She underwent an ERCP with sphincterotomy, and there are plans for cholecystectomy prior to discharge. Past History Past Medical History: diabetes, GERD, hypertension Past Surgical History: hysterectomy, Other (EGD/dilation - Dr. Sampson, 2015 - for stricture) Social history: , lives with family. denies: smoking, alcohol abuse, prescription drug abuse Family history: diabetes (Reviewed), hypertension Medications and Allergies Allergies Allergy/AdvReac Type Severity Reaction Status Date / Time No Known Allergies Allergy Verified 12/20/18 10:27 Home Medications Medication Instructions Recorded Confirmed Last Taken Type Levothyroxine [Synthroid] 50 mcg PO QAM 12/20/18 12/20/18 12/19/18 History Lisinopril [Zestril TAB] 2.5 mg PO QDAY 12/20/18 12/20/18 12/19/18 History Propranolol HCl 60 mg PO QDAY 12/20/18 12/20/18 12/19/18 History metFORMIN [Glucophage] 500 mg PO BID 12/20/18 12/20/18 12/19/18 History raNITIdine HCl [Zantac] 150 mg PO BID 12/20/18 12/20/18 12/19/18 History Active Meds: Active Medications Acetaminophen (Tylenol) 650 mg PO Q4H PRN PRN Reason: Pain MILD(1-3)/Fever >100.5/LEE Albuterol (Proventil) 2.5 mg IH Q4HRT PRN PRN Reason: Shortness Of Breath Hydromorphone HCl (Dilaudid) 0.5 mg IV Q3H PRN PRN Reason: Pain , Severe (7-10) Last Admin: 12/22/18 06:47 Dose: 0.5 mg Documented by: Ceftriaxone Sodium (Rocephin/Ns 1 Gm/50 Ml) 1 gm in 50 mls @ 100 mls/hr IV Q24HR [facility]; Protocol Last Admin: 12/22/18 09:39 Dose: 100 mls/hr Documented by: Sodium Chloride (Nacl 0.9% 1000 Ml) 1,000 mls @ 100 mls/hr IV DIRECT ANGEL Last Admin: 12/22/18 05:12 Dose: 100 mls/hr Documented by: Ondansetron HCl (Zofran) 4 mg IV Q8H PRN PRN Reason: Nausea And Vomiting Last Admin: 12/21/18 14:30 Dose: 4 mg Documented by: Pantoprazole Sodium (Protonix) 40 mg IV QDAY [facility] Last Admin: 12/22/18 09:39 Dose: 40 mg Documented by: Sodium Chloride (Sodium Chloride Flush Syringe 10 Ml) 10 ml IV BID [facility] Last Admin: 12/22/18 09:39 Dose: 10 ml Documented by: Sodium Chloride (Sodium Chloride Flush Syringe 10 Ml) 10 ml IV PRN PRN PRN Reason: LINE FLUSH Review of Systems General: no Chills, no Night Sweats, no Fatigue Eyes: no photophobia, no decreased vision Ears, nose, mouth and throat: no ear pain, no ear discharge, no tinnitis, no decreased hearing, no nose pain Breasts: no change in shape, no swelling, no mass Cardiovascular: no chest pain, no orthopnea, no palpitations, no rapid/irregular heart beat, no edema, no syncope Respiratory: no cough, no cough with sputum, no excessive sputum, no hemoptysis, no shortness of breath Gastrointestinal: abdominal pain, nausea, vomiting, no diarrhea, no constipation, no change in bowel habits Genitourinary: no pelvic pain, no flank pain, no menorrhagia, no dysuria, no urgency, no stress incontinence, no post void dribbling, no incomplete emptying Menstruation: no premenarcheal, no post hysterectomy, no ammenorrhea, no ammenorrhea on BC, no period normal, no period spotting Musculoskeletal: no neck stiffness, no neck pain, no shooting arm pain, no low back pain, no shooting leg pain Integumentary: no rash, no pruritis, no redness, no sores, no wounds Neurological: no transient paralysis, no paralysis, no weakness, no parathesias, no numbness, no tingling, no seizures Psychiatric: no anxiety, no memory loss, no change in sleep habits, no sleep disturbances, no insomnia, no hypersomnia, no change in appetite Endocrine: no cold intolerance, no heat intolerance, no polydipsia, no polyuria Hematologic/Lymphatic: no easy bruising, no easy bleeding Allergic/Immunologic: no urticaria, no allergic rhinitis, no wheezing, no persistent infections, no anaphylaxis Physical Examination - Physical Exam Narrative exam: Constitutional: awake, no distress, following commands Head, Ears, Nose: Normocephalic, atraumatic. External ears, nose normal Eyes: Conjunctivae/corneas clear. No icterus. No ptosis. Neck: Supple, no meningeal signs Oral: fair dentition, moist mucous membranes Cardiovascular: S1, S2 normal. Normal rhythm Respiratory: Good air entry, clear to auscultation bilaterally GI: Soft, tender, distended; bowel sounds normal. No peritoneal signs Musculoskeletal: No pedal edema, Skin: No rash or abscess Hem/Lymphatic: No palpable cervical or supraclavicular nodes. No lymphangitis Psych: no agitation Neurological: Moves all extremities, no focal defects - Constitutional Vitals: Vital Signs Temp Pulse Resp BP Pulse Ox 98.4 F 93 H 18 136/74 94 12/22/18 07:54 12/22/18 07:54 12/22/18 07:54 12/22/18 07:54 12/22/18 08:00 Temperature -Last 24 Hours Temperature 98.4 F Temperature 99.3 F Temperature 98.9 F Temperature 99.4 F Results - Labs CBC & Chem 7: 12/22/18 00:21 12/22/18 00:21 Labs: Abnormal lab results 12/22/18 12/22/18 12/22/18 Range/Units 00:21 00:21 00:21 WBC 23.9 H (4.5-11.0) K/mm3 PT 15.5 H (12.2-14.9) Sec. INR 1.26 H (0.87-1.13) Creatinine 0.5 L (0.7-1.2) mg/dL Glucose 106 H (65-100) mg/dL Total Bilirubin 1.70 H (0.1-1.2) mg/dL Albumin 3.3 L (3.9-5) g/dL Lipase 147 H (13-60) units/L - Imaging and Cardiology CT scan - abdomen: image reviewed (pancreatitis) Assessment and Plan Cultures: No cultures for review at the present time. 83-year-old female with a past medical history of diabetes, GERD, hypertension admitted with pancreatitis and choledocholithiasis. 1) leukocytosis elevated in the setting of pancreatitis and choledocholithiasis. We will empirically cover with ceftriaxone and metronidazole to prevent bacteremia. Would check blood cultures at the present time. 2) choledocholithiasis - there are plans for cholecystectomy prior to discharge, as such we'll continue prophylactic antibiotics through the surgery and can change to orals for discharge to complete 5 days after surgery. 3) diabetes type 2 4) GERD 5) HTN Recs: Continue ceftriaxone 1g daily Start metronidazole 500mg TID (IV while NPO, change to PO when taking food) Thank you for involving us in the care of Mrs. Schilling, we will continue to follow along with you. MD [facility] C: [phone] O: [phone] F: [phone]
[2018-12-22] MEDS ORDERED: DILAUDID ONE (12:53)
--- NOTE | 2018-12-22 13:40 | Fluoroscopy Report ---
FLUOROSCOPY ERCP BILIARY PANCREATIC DUCTS HISTORY: Common bile duct stone. FINDINGS: Fluoroscopy was provided by radiology during ERCP by gastroenterology. 4 fluoroscopic image s of the right upper quadrant are presented. The images demonstrate contrast agent throughout the janene iary tree and duodenum. Balloon sweep of common bile duct stones was performed. Please correlate with the procedural report. 2.04 minutes of fluoroscopy time was utilized. Signer Name: Aristeo Caldera Jr, MD Signed: 12/22/2018 1:36 PM Workstation Name: [id number]
--- NOTE | 2018-12-22 14:15 | Progress Note ---
Assessment and Plan 83 yo F with 1. choledocolithiasis 2. gallstone pancreatitis s/p ERCP with sphincterotomy and CBD stone extraction 12/22/18 Plan: 1. Clear liquids, NPO p MN 2. trend lipase, LFTs, bilirubin 3. prn pain and nausea control 4. repeat CBC in am 5. IVF 6. abx per ID 7. Added on to OR schedule for robotic assisted cholecystectomy tomorrow 12/23/18 - will obtain consent tomorrow as patient just came back from ERCP Plan discussed with patient's and son at bedside. Thank you, please call with questions Subjective Date of service: 12/22/18 Narrative: Pt seen and examined. s/P ERCP. c/o abdominal distension and discomfort. No n/v. No f/c Objective Vital Signs - 12hr 12/22/18 12/22/18 12/22/18 06:47 07:17 07:54 Temperature 98.4 F Pulse Rate 93 H Respiratory 18 20 18 Rate Blood Pressure 136/74 O2 Sat by Pulse 93 Oximetry 12/22/18 12/22/18 08:00 13:35 Temperature 98.7 F Pulse Rate 82 Respiratory 18 Rate Blood Pressure 135/75 O2 Sat by Pulse 94 92 Oximetry - General physical appearance Narrative Exam: Gen: AAOx3. NAD CV: s1, S2+ Resp: even and unlabored Abd: soft, distended, mild diffuse TTP. No r/r/g Ext: no c/c/e - Labs 12/22/18 00:21 12/22/18 00:21 Diabetes panel 12/22/18 Range/Units 00:21 Sodium 141 (137-145) mmol/L Potassium 3.7 (3.6-5.0) mmol/L Chloride 102.7 (98-107) mmol/L Carbon Dioxide 25 (22-30) mmol/L BUN 8 (7-17) mg/dL Creatinine 0.5 L (0.7-1.2) mg/dL Glucose 106 H (65-100) mg/dL Calcium 8.6 (8.4-10.2) mg/dL AST 40 (5-40) units/L ALT 46 (7-56) units/L Alkaline Phosphatase 70 (35-129) units/L Total Protein 6.6 (6.3-8.2) g/dL Albumin 3.3 L (3.9-5) g/dL Calcium panel 12/22/18 Range/Units 00:21 Calcium 8.6 (8.4-10.2) mg/dL Albumin 3.3 L (3.9-5) g/dL Pituitary panel 12/22/18 Range/Units 00:21 Sodium 141 (137-145) mmol/L Potassium 3.7 (3.6-5.0) mmol/L Chloride 102.7 (98-107) mmol/L Carbon Dioxide 25 (22-30) mmol/L BUN 8 (7-17) mg/dL Creatinine 0.5 L (0.7-1.2) mg/dL Glucose 106 H (65-100) mg/dL Calcium 8.6 (8.4-10.2) mg/dL Adrenal panel 12/22/18 Range/Units 00:21 Sodium 141 (137-145) mmol/L Potassium 3.7 (3.6-5.0) mmol/L Chloride 102.7 (98-107) mmol/L Carbon Dioxide 25 (22-30) mmol/L BUN 8 (7-17) mg/dL Creatinine 0.5 L (0.7-1.2) mg/dL Glucose 106 H (65-100) mg/dL Calcium 8.6 (8.4-10.2) mg/dL Total Bilirubin 1.70 H (0.1-1.2) mg/dL AST 40 (5-40) units/L ALT 46 (7-56) units/L Alkaline Phosphatase 70 (35-129) units/L Total Protein 6.6 (6.3-8.2) g/dL Albumin 3.3 L (3.9-5) g/dL
[2018-12-22] MEDS: FLAGYL 500 MG/100 ML 500 MG/100 ML BAG IV SCH ×2 (19:26→22:26)
[2018-12-22] MEDS: LACTATED RINGERS 1,000 ML IV SCH (22:26)
[2018-12-23] MEDS: FLAGYL 500 MG/100 ML 500 MG/100 ML BAG IV SCH ×3 (05:19→22:51)
[2018-12-23 05:40] LABS: Hematocrit 35.8 % (30.3-42.9); Hemoglobin 11.8 gm/dl (10.1-14.3); Mean Corpuscular HGB Conc 33 % (30-34); Mean Corpuscular Volume 92 fl (79-97); Platelet Count 186 K/mm3 (140-440); Red Blood Count 3.89 M/mm3 (3.65-5.03); Red Cell Distribution Width 13.7 % (13.2-15.2)
[2018-12-23 05:59] LABS: Alanine Aminotransferase 89 units/L (7-56); Albumin 2.6 g/dL (3.9-5); BUN/Creatinine Ratio 15; Blood Urea Nitrogen 6 mg/dL (7-17); Calcium 8.3 mg/dL (8.4-10.2); Hemolysis Index 4
--- NOTE | 2018-12-23 08:37 | Progress Note ---
Assessment and Plan Cultures: 12/22/2018 Blood: in progress 83-year-old female with a past medical history of diabetes, GERD, hypertension admitted with pancreatitis and choledocholithiasis. 1) leukocytosis Trending down. elevated in the setting of pancreatitis and choledocholithiasis. We will empirically cover with ceftriaxone and metronidazole to prevent bacteremia. Blood cultures in progress 2) choledocholithiasis - s/p ERCP with sphincterotomy and CBD stone extraction 12/22/18. Robotic assisted cholecystectomy scheduled for today. Will continue prophylactic antibiotics through the surgery and can change to orals for discharge to complete 5 days after surgery. 3) diabetes type 2 4) GERD 5) HTN Recs: Continue ceftriaxone 1g daily, D3 Continue metronidazole 500mg TID (IV while NPO, change to PO when taking food), D2 [facility] M: [phone] O:[phone] Subjective Date of service: 12/23/18 Interval history: Patient seen and examined. Reported no generalized pain or weakness. No fevers. Objective - Exam Narrative Exam: Constitutional: awake, Alert. no acute distress Head, Ears, Nose: Normocephalic, atraumatic. External ears, nose normal Eyes: Conjunctivae/corneas clear. No icterus. No ptosis. Neck: Supple, no meningeal signs Oral: fair dentition, moist mucous membranes. No thrush Cardiovascular: S1, S2 normal. Normal rhythm Respiratory: Good air entry, clear to auscultation bilaterally GI: Soft, mildly tender with abdominal distension; bowel sounds normal. No peritoneal signs Musculoskeletal: No pedal edema, Skin: No rash or abscess Hem/Lymphatic: No palpable cervical or supraclavicular nodes. No lymphangitis Psych: no agitation Neurological: Moves all extremities, no focal defects - Constitutional Vitals: Vital Signs Temp Pulse Resp BP Pulse Ox 98.0 F 76 20 145/66 91 12/23/18 07:32 12/23/18 07:32 12/23/18 07:32 12/23/18 07:32 12/23/18 07:32 Temperature -Last 24 Hours Temperature 98.0 F Temperature 98.7 F Temperature 98.8 F Temperature 98.7 F Temperature 98.9 F Temperature 98.9 F Temperature 98.9 F - Labs CBC & Chem 7: 12/23/18 04:57 12/23/18 04:57 Labs: Abnormal lab results 12/23/18 12/23/18 Range/Units 04:57 04:57 WBC 17.4 H (4.5-11.0) K/mm3 Potassium 3.4 L (3.6-5.0) mmol/L BUN 6 L (7-17) mg/dL Creatinine 0.4 L (0.7-1.2) mg/dL Calcium 8.3 L (8.4-10.2) mg/dL Total Bilirubin 3.80 H (0.1-1.2) mg/dL AST 134 H (5-40) units/L ALT 89 H (7-56) units/L Alkaline Phosphatase 141 H (35-129) units/L Total Protein 5.8 L (6.3-8.2) g/dL Albumin 2.6 L (3.9-5) g/dL Lipase 174 H (13-60) units/L
[2018-12-23] MEDS: DILAUDID IV PRN ×4 (09:09→22:51)
[2018-12-23] MEDS: SODIUM CHLORIDE FLUSH SYRINGE 10 ML IV SCH ×2 (09:10→22:51)
[2018-12-23] MEDS: PROTONIX IV SCH (09:15)
[2018-12-23] MEDS: ROCEPHIN/NS 1 GM/50 ML 1 GM/50 ML BAG IV SCH (09:15)
[2018-12-23] MEDS: LACTATED RINGERS 1,000 ML IV SCH ×2 (12:25→22:56)
[2018-12-23] MEDS ORDERED: ZOFRAN ONE ×2 (13:06→17:03)
[2018-12-23] MEDS: ZOFRAN IV PRN (13:10)
[2018-12-23] MEDS ORDERED: PHENYLEPHRINE/NS Syringe 1,000 MCG/10 ML IV ONE (14:00)
[2018-12-23] MEDS ORDERED: SUBLIMAZE ONE (14:10)
[2018-12-23] MEDS ORDERED: DIPRIVAN 10 MG/ML IV ONE (14:10)
[2018-12-23] MEDS ORDERED: ZEMURON IV ONE (14:10)
[2018-12-23] MEDS ORDERED: XYLOCAINE MPF 2% ONE (14:10)
[2018-12-23] MEDS ORDERED: NACL 0.9% IR ONE (15:28)
[2018-12-23] MEDS ORDERED: XYLOCAINE 1% 20 mL INFILTRATI ONE (15:28)
[2018-12-23] MEDS ORDERED: MARCAINE 0.5% INFILTRATI ONE (15:28)
[2018-12-23] MEDS ORDERED: BRIDION IV ONE (17:03)
--- NOTE | 2018-12-23 17:04 | Progress Note ---
Assessment and Plan Assessment and plan: Acute pancreatitis likely due to gallstones Admitted to [facility] unit Dilaudid iv prn NPO, iv fluids Lipase level improving Cholelithiasis and Choledocholithiasis I discussed with Dr. Zaldivar, GI s/p ERCP yesterday For cholecystectomy today Leukocytosis ID Physician following Ceftriaxone 1g iv daily Hypertension Monitior BP Diabetes mellitus type 2 fingerstick q6h Hypothyroidism Continue Levothyroxine Full code status History Interval history: Abdominal pain back pain Hospitalist Physical - Physical exam Narrative exam: Gen: Not in acute distress, lying in bed, HEENT: Normocephalic, atraumatic Neck: supple, no JVD Heart: S1 and S2 reg, no murmurs, rubs or gallop Lungs: Clear to auscultation, no wheeze Abd: soft, tender mid abdomen, no rebound, normal BS, Ext: No edema, no clubbing, no cyanosis Neuro: Awake,alert, Oriented X 3. No focal neuro signs Psych: normal mood - Constitutional Vitals: Temp Pulse Resp BP Pulse Ox 99.3 F 73 18 143/89 95 12/23/18 12:50 12/23/18 12:50 12/23/18 12:50 12/23/18 12:50 12/23/18 12:50 Results - Labs CBC & Chem 7: 12/24/18 05:47 12/24/18 05:47 Labs: Laboratory Last Values WBC 17.4 K/mm3 (4.5-11.0) H 12/23/18 04:57 RBC 3.89 M/mm3 (3.65-5.03) 12/23/18 04:57 Hgb 11.8 gm/dl (10.1-14.3) 12/23/18 04:57 Hct 35.8 % (30.3-42.9) 12/23/18 04:57 MCV 92 fl (79-97) 12/23/18 04:57 MCH 30 pg (28-32) 12/23/18 04:57 MCHC 33 % (30-34) 12/23/18 04:57 RDW 13.7 % (13.2-15.2) 12/23/18 04:57 Plt Count 186 K/mm3 (140-440) 12/23/18 04:57 Add Manual Diff Complete 12/20/18 11:34 Total Counted 100 07/29/19 11:34 Seg Neuts % (Manual) 82.0 % (40.0-70.0) H 12/20/18 11:34 1.0 % 12/20/18 11:34 3.0 % (13.4-35.0) L 12/20/18 11:34 Reactive Lymphs % (Man) 0 % 12/20/18 11:34 13.0 % (0.0-7.3) H 12/20/18 11:34 1.0 % (0.0-4.3) 12/20/18 11:34 0 % (0.0-1.8) 12/20/18 11:34 0 % 12/20/18 11:34 0 % 12/20/18 11:34 0 % 12/20/18 11:34 0 % 12/20/18 11:34 Nucleated RBC % Not Reportable 12/20/18 11:34 Seg Neutrophils # Man 16.6 K/mm3 (1.8-7.7) H 12/20/18 11:34 Band Neutrophils # 0.2 K/mm3 12/20/18 11:34 0.6 K/mm3 (1.2-5.4) L 12/20/18 11:34 Abs React Lymphs (Man) 0.0 K/mm3 12/20/18 11:34 2.6 K/mm3 (0.0-0.8) H 12/20/18 11:34 0.2 K/mm3 (0.0-0.4) 12/20/18 11:34 0.0 K/mm3 (0.0-0.1) 12/20/18 11:34 0.0 K/mm3 12/20/18 11:34 0.0 K/mm3 12/20/18 11:34 0.0 K/mm3 12/20/18 11:34 Blast Cells # 0.0 K/mm3 12/20/18 11:34 WBC Morphology Not Reportable 12/20/18 11:34 Hypersegmented Neuts Not Reportable 12/20/18 11:34 Hyposegmented Neuts Not Reportable 12/20/18 11:34 Hypogranular Neuts Not Reportable 12/20/18 11:34 Not Reportable 12/20/18 11:34 Not Reportable 12/20/18 11:34 Not Reportable 12/20/18 11:34 Not Reportable 12/20/18 11:34 Not Reportable 12/20/18 11:34 Not Reportable 12/20/18 11:34 Consistent w auto 12/20/18 11:34 Not Reportable 12/20/18 11:34 Plt Clumps, EDTA Not Reportable 12/20/18 11:34 Not Reportable 12/20/18 11:34 Not Reportable 12/20/18 11:34 Not Reportable 12/20/18 11:34 Plt Morphology Comment Not Reportable 12/20/18 11:34 RBC Morphology Normal 12/20/18 11:34 Dimorphic RBCs Not Reportable 12/20/18 11:34 Not Reportable 12/20/18 11:34 Not Reportable 12/20/18 11:34 Not Reportable 12/20/18 11:34 Not Reportable 12/20/18 11:34 Not Reportable 12/20/18 11:34 Not Reportable 12/20/18 11:34 Not Reportable 12/20/18 11:34 Not Reportable 12/20/18 11:34 Not Reportable 12/20/18 11:34 Not Reportable 12/20/18 11:34 Not Reportable 12/20/18 11:34 Not Reportable 12/20/18 11:34 Not Reportable 12/20/18 11:34 Not Reportable 12/20/18 11:34 Not Reportable 12/20/18 11:34 Not Reportable 12/20/18 11:34 Not Reportable 12/20/18 11:34 Not Reportable 12/20/18 11:34 Not Reportable 12/20/18 11:34 Acanthocytes (Spur) Not Reportable 12/20/18 11:34 Rouleaux Not Reportable 12/20/18 11:34 Not Reportable 12/20/18 11:34 Not Reportable 12/20/18 11:34 Not Reportable 12/20/18 11:34 Not Reportable 12/20/18 11:34 Hem Pathologist Commnt No 12/20/18 11:34 PT 15.5 Sec. (12.2-14.9) H 12/22/18 00:21 INR 1.26 (0.87-1.13) H 12/22/18 00:21 APTT 22.4 Sec. (24.2-36.6) L 12/20/18 11:34 Sodium 139 mmol/L (137-145) 12/23/18 04:57 Potassium 3.4 mmol/L (3.6-5.0) L 12/23/18 04:57 Chloride 102.7 mmol/L (98-107) 12/23/18 04:57 Carbon Dioxide 25 mmol/L (22-30) 12/23/18 04:57 15 mmol/L 12/23/18 04:57 BUN 6 mg/dL (7-17) L 12/23/18 04:57 0.4 mg/dL (0.7-1.2) L 12/23/18 04:57 Estimated GFR > 60 ml/min 12/23/18 04:57 15 % 12/23/18 04:57 Glucose 96 mg/dL (65-100) 12/23/18 04:57 POC Glucose 91 (70-105) 12/23/18 11:56 Calcium 8.3 mg/dL (8.4-10.2) L 12/23/18 04:57 3.80 mg/dL (0.1-1.2) H 12/23/18 04:57 AST 134 units/L (5-40) H 12/23/18 04:57 ALT 89 units/L (7-56) H 12/23/18 04:57 141 units/L (35-129) H 12/23/18 04:57 301 units/L (91-180) H 12/20/18 11:34 5.8 g/dL (6.3-8.2) L 12/23/18 04:57 2.6 g/dL (3.9-5) L 12/23/18 04:57 0.8 % 12/23/18 04:57 174 units/L (13-60) H 12/23/18 04:57 Yellow (Yellow) 12/20/18 Unknown Clear (Clear) 12/20/18 Unknown 5.0 (5.0-7.0) 12/20/18 Unknown Ur Specific [place] 1.014 (1.003-1.030) 12/20/18 Unknown 30 mg/dl mg/dL (Negative) 12/20/18 Unknown Neg mg/dL (Negative) 12/20/18 Unknown Neg mg/dL (Negative) 12/20/18 Unknown Neg (Negative) 12/20/18 Unknown Neg (Negative) 12/20/18 Unknown Neg (Negative) 12/20/18 Unknown < 2.0 mg/dL (<2.0) 12/20/18 Unknown Ur Leukocyte Esterase Neg (Negative) 12/20/18 Unknown 1.0 /HPF (0.0-6.0) 12/20/18 Unknown 1.0 /HPF (0.0-6.0) 12/20/18 Unknown Active Medications - Current Medications Current Medications: Generic Name Dose Route Start Last Admin Trade Name Freq PRN Reason Stop Dose Admin Acetaminophen 650 mg 12/20/18 15:48 Tylenol PO Q4H PRN Pain MILD(1-3)/Fever >100.5/LEE Albuterol 2.5 mg 12/20/18 15:48 Proventil IH Q4HRT PRN Shortness Of Breath Hydromorphone HCl 0.5 mg 12/20/18 15:48 12/23/18 09:09 Dilaudid IV 0.5 mg Q3H PRN Administration Pain , Severe (7-10) Ceftriaxone Sodium 1 gm in 50 mls @ 100 mls/hr 12/21/18 10:00 12/23/18 09:15 Rocephin/Ns 1 Gm/50 Ml IV 100 mls/hr Q24HR ANGEL Administration Protocol Sodium Chloride 1,000 mls @ 100 mls/hr 12/21/18 18:00 12/22/18 05:12 Nacl 0.9% 1000 Ml IV 100 mls/hr DIRECT ANGEL Administration Metronidazole 500 mg in 100 mls @ 100 mls/hr 12/22/18 16:00 12/23/18 14:03 Flagyl 500 Mg/100 Ml IV 100 mls/hr Q8HR ANGEL Administration Protocol Lactated Ringer's 1,000 mls @ 100 mls/hr 12/22/18 16:00 12/23/18 12:25 Lactated Ringers IV 100 mls/hr DIRECT ANGEL Administration Ondansetron HCl 4 mg 12/20/18 15:48 12/23/18 13:10 Zofran IV 4 mg Q8H PRN Administration Nausea And Vomiting Pantoprazole Sodium 40 mg 12/21/18 18:00 12/23/18 09:15 Protonix IV 40 mg QDAY ANGEL Administration Sodium Chloride 10 ml 12/20/18 22:00 12/23/18 09:10 Sodium Chloride Flush Syringe 10 Ml IV 10 ml BID ANGEL Administration Sodium Chloride 10 ml 12/20/18 15:48 Sodium Chloride Flush Syringe 10 Ml IV PRN PRN LINE FLUSH Nutrition/Malnutrition Assess - Dietary Evaluation Nutrition/Malnutrition Findings: Nutrition Notes Start: 12/21/18 14:08 Freq: Status: Active Protocol: Document 12/21/18 14:08 [email or web address] (Rec: 12/21/18 14:13 [facility] [id number] [email or web address]) Nutrition Notes Need for Assessment generated from: biologist,MST Initial or Follow up Assessment Current Diagnosis Diabetes,Hypertension Other Pertinent Diagnosis SIRS, acute pancreatitis, GERD Current Diet NPO Labs/Tests Lipase 494 Pertinent Medications 1/2 NS at 100ml/hr Height 5 ft 4.5 in Weight 61.7 kg [place] Body Weight (kg) 55.68 BMI 22.9 Weight Status Appropriate Subjective/Other Information Pt screened for malnutrition risk (wt loss, poor appetite), chewing difficulty and skin risk (Salvatore score: 17). Pt admitted with c/o abd pain. She is receiving care at time of visit (11:10). Burn Absent Trauma Absent #1 Nutrition Diagnosis Altered GI function Etiology acute pancreatitis As Evidenced by Signs and Symptoms pt c/o abd pain and is NPO Is patient on ventilator? No Is Patient Ambulatory and/or Out of Bed No REE-([facility]-confined to bed) [phone] Calculation Used for Recommendations [facility] Additional Notes Pro needs 1-1.2g/k-74g/ day Fluid needs 1ml/kcal Nutrition Intervention Change Diet Order: Diet advancement when medically feasible Goal #1 Advance diet to meet nutrient needs Anticipated Discharge Needs: Unable to identify at this time Follow-Up By: 12/24/18 Additional Comments F/U: diet advancement, MST assessment - Attestation Statement I have reviewed and agreed w/ Malnutrition eval & tx plan: Yes
--- NOTE | 2018-12-23 17:17 | Post Operative Note ---
Date of procedure: 12/23/18 Pre-op diagnosis: acute cholecystitis, choledocolithiasis, gallstone pancreatitis Post-op diagnosis: same Findings: Gallbladder with dense adhesions to the stomach. Cirrhotic appearing liver Procedure: robotic assisted cholecystectomy Anesthesia: FATOUMATA, local Surgeon: ABDI LUCIANO Hypo Splasher: TOOTIE PATEL Estimated blood loss: minimal Pathology: list (gallbladder) Specimen disposition: to lab Condition: stable Disposition: PACU
[2018-12-23] MEDS ORDERED: ZOFRAN IV PRN (17:35)
--- NOTE | 2018-12-23 18:24 | Post Anesthesia Evaluation ---
- Post Anesthesia Evaluation Patient Participated: Yes Airway Patent: Yes Stable Respiratory Function: Yes Nausea/Vomiting: No Temp > 96.8F: Yes Pain Manageable: Yes Adequeate Hydration: Yes Anesthesia Complications: No Block Receding Appropriately: Not Applicable Patient on Ventilator: No
--- NOTE | 2018-12-23 19:57 | Operative Report ---
PREOPERATIVE DIAGNOSES: Acute cholecystitis, choledocholithiasis, gallstone pancreatitis. POSTOPERATIVE DIAGNOSES: Acute cholecystitis, choledocholithiasis, gallstone pancreatitis. FINDINGS: 1. Gallbladder with dense adhesions to the stomach. 2. Cirrhotic appearing liver. 3. Dilated cystic duct. PROCEDURE: Robotic-assisted cholecystectomy. ANESTHESIA: General endotracheal anesthesia, local. SURGEON: Sonia Anthony DO. LABORER ADJUSTABLE STEEL JOIST SURGEON: Qing Hercules MD ESTIMATED BLOOD LOSS: 25-30 mL. PATHOLOGY: Gallbladder. SPECIMEN DISPOSITION: To lab. CONDITION DISPOSITION: The patient is stable to PACU. HISTORY OF PRESENT ILLNESS AND INDICATION: The patient is an 83-year-old female who presented to the Emergency Room with abdominal pain. She was found to have pancreatitis and upon further workup this was found to be due to gallstones. An MRCP was also obtained due to elevated liver function enzymes as well as bilirubin. An MRCP was positive for choledocholithiasis. She was seen by GI who did take the patient for an ERCP with sphincterotomy and removed multiple stones from the common bile duct. The patient was then scheduled for cholecystectomy as this was recommended. All risks, benefits and alternatives to surgery were discussed with the patient as well as her son and . All questions were answered and consent obtained. PROCEDURE IN DETAIL: The patient was identified in the preoperative area and taken back to the operating room and placed on the operating table in supine position. After anesthesia was induced, the right arm was tucked with all bony prominences padded. The abdomen was then prepped and draped in the usual sterile fashion. Timeout was performed. Local anesthetic was infiltrated into all skin incision sites. A 12 mm incision was made at the umbilicus through which a Veress needle was inserted. The Veress needle position was confirmed using the saline drop test. After the abdomen was insufflated to 15 mmHg, the Veress needle was removed and a 12 mm Optiview balloon trocar was placed through this incision. There were some adhesions from the omentum to the anterior abdominal wall, which were able to be avoided. The abdomen was inspected. There was no underlying injury to any of the abdominal structures. The patient was placed in reverse Trendelenburg and tilted to the left. The gallbladder was visualized in the right upper quadrant. It appeared slightly distended. An additional 8 mm left upper quadrant and two 8 mm right abdominal wall trocars were placed under direct visualization. A Ray-Samuel was placed into the abdomen and the robot was then docked. A monopolar hook was placed in arm #1, Cadiere grasper in arm #2 and ProGrasp in arm #3. Surgeon was then transferred to the console. The gallbladder fundus was grasped and retracted cephalad; however, there were dense adhesions from the stomach and duodenum to the gallbladder. These adhesions were very carefully taken down using electrocautery. Great care was taken to avoid injury to the stomach, or duodenum. Upon examination of the liver, was very friable and cirrhotic appearing. It was due to the dense adhesions, it was difficult to retract the fundus above the liver and therefore it was decided to perform a dome down approach. The liver and gallbladder were retracted and the peritoneum incised using the hook. The dissection was carried around to the lateral and medial aspects of the gallbladder and the gallbladder dissected off the liver bed. During the dissection, artery was identified, but was enveloped and thickened peritoneum overlying the gallbladder and therefore it was clipped. The gallbladder was dissected all the way down to the neck; however, the wall was very friable and there was a hole in the gallbladder. There were stones and bile in the gallbladder. There was also some bleeding from the surrounding tissue that was controlled with electrocautery. Due to this, the visualization was difficult. An additional 5 mm ophthalmic surgical assistant trocar was placed in the left upper abdomen under direct visualization. The ophthalmic surgical assistant surgeon was able to irrigate and suction through this during the remainder of the dissection. We continued the dissection down to the neck of the gallbladder; however, could not continue this further due to dense adhesions to the stomach and duodenum, which could not safely be taken down. Therefore, it was decided to transect the gallbladder at the neck. A PDS Endoloop was placed into the abdomen by the ophthalmic surgical assistant surgeon and placed around the gallbladder and brought to the proximal neck. This was cinched down proximal to the hole in the gallbladder and the gallbladder tied. The gallbladder was then transected distal to this suture and placed in the right upper quadrant. The redundant mucosa, which was visible was cauterized. There was no bile leakage seen from this area. The clip placed on the artery was intact. The abdomen was then irrigated and hemostasis ensured. There was no active bleeding or bile leakage seen from the liver bed. The robot was then undocked and the surgeon scrubbed back in. The remainder of the procedure was performed laparoscopically. The remainder of the abdomen was inspected and there were omental adhesions to the anterior abdominal wall in the lower abdomen. The Ray-Samuel was removed from the abdomen. The gallbladder was placed into an EndoCatch bag along with any loose stones and removed from the abdomen via the 12 mm port. The right upper quadrant once again irrigated and suctioned. The patient was placed into neutral position. A 19-Lux[place]bourgish Hector drain was brought out through the right lateral most port and placed in the gallbladder fossa. The drain was sutured in using a 3-0 nylon drain stitch. Symone powder was applied to the liver bed. The ports were then removed under direct visualization. The 12 mm port fascia was closed with interrupted 0 Vicryl suture. The skin incisions were once again infiltrated with local anesthetic and hemostasis ensured. The skin incisions were closed with 4-0 Monocryl subcuticular stitches and skin glue. A drain sponge was applied to the drain and secured with Tegaderm. At the end of the case, all sponge, instrument, sharp counts were correct x 2. The patient was awoken from anesthesia, extubated, and taken to PACU in stable condition. JOB# [id number] IVÁN/SEVERINO KUMAR
[2018-12-24] MEDS: DILAUDID IV PRN (05:48)
[2018-12-24] MEDS: FLAGYL 500 MG/100 ML 500 MG/100 ML BAG IV SCH ×3 (05:50→21:56)
[2018-12-24 06:10] LABS: Hematocrit 36.2 % (30.3-42.9); Hemoglobin 12.1 gm/dl (10.1-14.3); Mean Corpuscular HGB Conc 33 % (30-34); Mean Corpuscular Volume 92 fl (79-97); Platelet Count 226 K/mm3 (140-440); Red Blood Count 3.94 M/mm3 (3.65-5.03); Red Cell Distribution Width 13.9 % (13.2-15.2)
[2018-12-24 06:33] LABS: Alanine Aminotransferase 58 units/L (7-56); Albumin 2.6 g/dL (3.9-5); BUN/Creatinine Ratio 20; Blood Urea Nitrogen 6 mg/dL (7-17); Calcium 8.5 mg/dL (8.4-10.2); Hemolysis Index 7
--- NOTE | 2018-12-24 08:52 | Progress Note ---
Assessment and Plan Cultures: 12/22/2018 Blood:No growth to date 83-year-old female with a past medical history of diabetes, GERD, hypertension admitted with pancreatitis and choledocholithiasis. 1) leukocytosis now trending down. elevated in the setting of pancreatitis and choledocholithiasis. We will empirically cover with ceftriaxone and metronidazole to prevent bacteremia. Blood cultures in progress 2) choledocholithiasis - s/p ERCP with sphincterotomy and CBD stone extraction 12/22/18. s/p Robotic assisted cholecystectomy 12/24/18. Gallbladder with dense adhesions to the stomach. Cirrhotic appearing liver. Will continue prophylactic antibiotics through the surgery. Anticipate discharge on CIprofloxacin and Flagyl total 5 days post surgery. 3) diabetes type 2 4) GERD 5) HTN Recs: Continue ceftriaxone 1g daily, D4 Continue metronidazole 500mg TID (IV while NPO, change to PO when taking food), D3 Anticipate discharge on Ciprofloxacin 500mg PO every 12 hours and metronidazole 500mg PO TID for total 5 days ending 12/28/18 ID is signing off please call for questions Mulu Bowman NP [facility] M: [phone] O:[phone] Subjective Date of service: 12/24/18 Interval history: Patient seen and examined. Sitting up in the chair. Reports abdominal pain and tenderness. No fevers. Objective - Exam Narrative Exam: Constitutional: awake, Alert. Mild distress, diffuse abdominal pain and tenderness Head, Ears, Nose: Normocephalic, atraumatic. External ears, nose normal Eyes: Conjunctivae/corneas clear. No icterus. No ptosis. Neck: Supple, no meningeal signs Oral: fair dentition, moist mucous membranes. No thrush Cardiovascular: S1, S2 normal. Normal rhythm Respiratory: Good air entry, clear to auscultation bilaterally GI: Soft, tender with abdominal distension; bowel sounds normal. No peritoneal signs Musculoskeletal: No pedal edema, Skin: No rash or abscess Hem/Lymphatic: No palpable cervical or supraclavicular nodes. No lymphangitis Psych: no agitation Neurological: Moves all extremities, no focal defects - Constitutional Vitals: Vital Signs Temp Pulse Resp BP Pulse Ox 98.6 F 86 20 154/83 94 12/24/18 07:35 12/24/18 07:35 12/24/18 07:35 12/24/18 07:35 12/24/18 07:35 Temperature -Last 24 Hours Temperature 98.6 F Temperature 99.7 F Temperature 98.9 F Temperature 97.7 F Temperature 98.8 F Temperature 98.1 F Temperature 99.3 F Temperature 99.3 F - Labs CBC & Chem 7: 12/24/18 05:47 12/24/18 05:47 Labs: Abnormal lab results 12/23/18 12/24/18 12/24/18 Range/Units 17:36 05:47 05:47 WBC 16.1 H (4.5-11.0) K/mm3 Potassium 3.2 L (3.6-5.0) mmol/L BUN 6 L (7-17) mg/dL Creatinine 0.3 L (0.7-1.2) mg/dL POC Glucose 112 H (70-105) Total Bilirubin 1.70 H (0.1-1.2) mg/dL AST 54 H (5-40) units/L ALT 58 H (7-56) units/L Total Protein 6.1 L (6.3-8.2) g/dL Albumin 2.6 L (3.9-5) g/dL
[2018-12-24] MEDS: ROCEPHIN/NS 1 GM/50 ML 1 GM/50 ML BAG IV SCH (09:15)
[2018-12-24] MEDS: PERCOCET 5/325 PO PRN ×3 (09:15→21:54)
[2018-12-24] MEDS: PROTONIX IV SCH (09:15)
[2018-12-24] MEDS: SODIUM CHLORIDE FLUSH SYRINGE 10 ML IV SCH ×2 (09:16→21:58)
--- NOTE | 2018-12-24 11:50 | Progress Note ---
Assessment and Plan 83 yo F s/p robotic assisted cholecystectomy, POD 1 83 yo F with 1. acute cholecystitis 2. choledocolithiasis 3. gallstone pancreatitis s/p ERCP with sphincterotomy and CBD stone extraction 12/22/18 Plan: 1. Consistent carb diet 2. WBC, LFTs, bilirubin trending down 3. prn PO pain and nausea control 4. abx per ID 5. dc IVF 6. replace K 7. Otf drain - will dc when patient is discharged 8. PT consulted 9. IS/pulm toilet - patient instructed on use of IS. wean O2 Likely dc in 24 hours. Patient is still on O2 and not very mobile. Will need to work with PT. May need home PT. Discussed with Dr. Baker. Plan discussed with patient and her at bedside. Thank you, please call with questions Subjective Date of service: 12/24/18 Narrative: Pt seen and examined. c/o RUQ pain. No n/v, f/c, cp, sob. Patient is up in a chair. She is tolerating a diet. Objective Vital Signs - 12hr 12/24/18 12/24/18 12/24/18 02:23 07:35 09:15 Temperature 99.7 F H 98.6 F Pulse Rate 85 86 Respiratory 18 20 20 Rate Blood Pressure 157/84 154/83 O2 Sat by Pulse 92 94 Oximetry - General physical appearance Narrative Exam: Gen: AAOx3. NAD ENT: no scleral icterus or conjunctival pallor CV; S1, S2+ resp: even and unlabored. on NC Abd: soft ND, mild RUQ TTP. no r/r/g. Incisions c/d/i. OTF drain serous. Ext: no c/c/e - Labs 12/24/18 05:47 12/24/18 05:47 Diabetes panel 12/24/18 Range/Units 05:47 Sodium 142 (137-145) mmol/L Potassium 3.2 L (3.6-5.0) mmol/L Chloride 104.6 (98-107) mmol/L Carbon Dioxide 22 (22-30) mmol/L BUN 6 L (7-17) mg/dL Creatinine 0.3 L (0.7-1.2) mg/dL Glucose 90 (65-100) mg/dL Calcium 8.5 (8.4-10.2) mg/dL AST 54 H (5-40) units/L ALT 58 H (7-56) units/L Alkaline Phosphatase 123 (35-129) units/L Total Protein 6.1 L (6.3-8.2) g/dL Albumin 2.6 L (3.9-5) g/dL Calcium panel 12/24/18 Range/Units 05:47 Calcium 8.5 (8.4-10.2) mg/dL Albumin 2.6 L (3.9-5) g/dL Pituitary panel 12/24/18 Range/Units 05:47 Sodium 142 (137-145) mmol/L Potassium 3.2 L (3.6-5.0) mmol/L Chloride 104.6 (98-107) mmol/L Carbon Dioxide 22 (22-30) mmol/L BUN 6 L (7-17) mg/dL Creatinine 0.3 L (0.7-1.2) mg/dL Glucose 90 (65-100) mg/dL Calcium 8.5 (8.4-10.2) mg/dL Adrenal panel 12/24/18 Range/Units 05:47 Sodium 142 (137-145) mmol/L Potassium 3.2 L (3.6-5.0) mmol/L Chloride 104.6 (98-107) mmol/L Carbon Dioxide 22 (22-30) mmol/L BUN 6 L (7-17) mg/dL Creatinine 0.3 L (0.7-1.2) mg/dL Glucose 90 (65-100) mg/dL Calcium 8.5 (8.4-10.2) mg/dL Total Bilirubin 1.70 H (0.1-1.2) mg/dL AST 54 H (5-40) units/L ALT 58 H (7-56) units/L Alkaline Phosphatase 123 (35-129) units/L Total Protein 6.1 L (6.3-8.2) g/dL Albumin 2.6 L (3.9-5) g/dL
[2018-12-24] MEDS ORDERED: K-DUR PO ONE (12:00)
--- NOTE | 2018-12-24 13:56 | XRay Report ---
CHEST 1 VIEW INDICATION: shortness of breath. COMPARISON: FINDINGS: Support devices: None. Heart: Within normal limits. Lungs/Pleura: Mild central venous congestion and trace bilateral pleural effusions are identified. Th e lungs are clear otherwise. No evidence for pneumonia or pneumothorax. Additional findings: None. IMPRESSION: Mild central pulmonary venous congestion and trace pleural effusions. Signer Name: Aristeo Caldera Jr, MD Signed: 12/24/2018 1:51 PM Workstation Name: [id number]
[2018-12-24] MEDS ORDERED: LASIX IV NR (14:00)
[2018-12-24] MEDS ORDERED: POTASSIUM CHLORIDE PO NR (14:20)
--- NOTE | 2018-12-24 15:52 | Progress Note ---
Assessment and Plan Assessment and plan: Acute gallstone pancreatitis l Admitted to [facility] unit Dilaudid iv prn Acute resp failure with shortness of breath due to pulm edema Supplemental Oxygen Acute pulm edema lasix iv 1 dose ordered Cholelithiasis and Choledocholithiasis s/p ERCP 12/22/18 s/p robotic asisted cholecystectomy 12/23/18 Leukocytosis ID Physician following Ceftriaxone 1g iv daily Hypertension Monitior BP Diabetes mellitus type 2 fingerstick q6h Hypothyroidism Continue Levothyroxine Full code status History Interval history: Less Abdominal pain Shortness of breath Hospitalist Physical - Physical exam Narrative exam: Gen: Not in acute distress, sitting up in chair, HEENT: Normocephalic, atraumatic Neck: supple, no JVD Heart: S1 and S2 reg, no murmurs, rubs or gallop Lungs: Clear to auscultation, no wheeze Abd: soft, mild tender, no rebound, normal BS, Ext: No edema, no clubbing, no cyanosis Neuro: Awake,alert, Oriented X 3. No focal neuro signs Psych: normal mood - Constitutional Vitals: Temp Pulse Resp BP Pulse Ox 98.6 F 86 20 154/83 94 12/24/18 07:35 12/24/18 07:35 12/24/18 10:00 12/24/18 07:35 12/24/18 10:00 General appearance: Present: mild distress Results - Labs CBC & Chem 7: 12/24/18 05:47 12/24/18 05:47 Labs: Laboratory Last Values WBC 16.1 K/mm3 (4.5-11.0) H 12/24/18 05:47 RBC 3.94 M/mm3 (3.65-5.03) 12/24/18 05:47 Hgb 12.1 gm/dl (10.1-14.3) 12/24/18 05:47 Hct 36.2 % (30.3-42.9) 12/24/18 05:47 MCV 92 fl (79-97) 12/24/18 05:47 MCH 31 pg (28-32) 12/24/18 05:47 MCHC 33 % (30-34) 12/24/18 05:47 RDW 13.9 % (13.2-15.2) 12/24/18 05:47 Plt Count 226 K/mm3 (140-440) 12/24/18 05:47 Add Manual Diff Complete 12/20/18 11:34 Total Counted 100 12/20/18 11:34 Seg Neuts % (Manual) 82.0 % (40.0-70.0) H 12/20/18 11:34 1.0 % 12/20/18 11:34 3.0 % (13.4-35.0) L 12/20/18 11:34 Reactive Lymphs % (Man) 0 % 12/20/18 11:34 13.0 % (0.0-7.3) H 12/20/18 11:34 1.0 % (0.0-4.3) 12/20/18 11:34 0 % (0.0-1.8) 12/20/18 11:34 0 % 12/20/18 11:34 0 % 12/20/18 11:34 0 % 12/20/18 11:34 0 % 12/20/18 11:34 Nucleated RBC % Not Reportable 12/20/18 11:34 Seg Neutrophils # Man 16.6 K/mm3 (1.8-7.7) H 12/20/18 11:34 Band Neutrophils # 0.2 K/mm3 12/20/18 11:34 0.6 K/mm3 (1.2-5.4) L 12/20/18 11:34 Abs React Lymphs (Man) 0.0 K/mm3 12/20/18 11:34 2.6 K/mm3 (0.0-0.8) H 12/20/18 11:34 0.2 K/mm3 (0.0-0.4) 12/20/18 11:34 0.0 K/mm3 (0.0-0.1) 12/20/18 11:34 0.0 K/mm3 12/20/18 11:34 0.0 K/mm3 12/20/18 11:34 0.0 K/mm3 12/20/18 11:34 Blast Cells # 0.0 K/mm3 12/20/18 11:34 WBC Morphology Not Reportable 12/20/18 11:34 Hypersegmented Neuts Not Reportable 12/20/18 11:34 Hyposegmented Neuts Not Reportable 12/20/18 11:34 Hypogranular Neuts Not Reportable 12/20/18 11:34 Not Reportable 12/20/18 11:34 Not Reportable 12/20/18 11:34 Not Reportable 12/20/18 11:34 Not Reportable 12/20/18 11:34 Not Reportable 12/20/18 11:34 Not Reportable 12/20/18 11:34 Consistent w auto 12/20/18 11:34 Not Reportable 12/20/18 11:34 Plt Clumps, EDTA Not Reportable 12/20/18 11:34 Not Reportable 12/20/18 11:34 Not Reportable 12/20/18 11:34 Not Reportable 12/20/18 11:34 Plt Morphology Comment Not Reportable 12/20/18 11:34 RBC Morphology Normal 12/20/18 11:34 Dimorphic RBCs Not Reportable 12/20/18 11:34 Not Reportable 12/20/18 11:34 Not Reportable 12/20/18 11:34 Not Reportable 12/20/18 11:34 Not Reportable 12/20/18 11:34 Not Reportable 12/20/18 11:34 Not Reportable 12/20/18 11:34 Not Reportable 12/20/18 11:34 Not Reportable 12/20/18 11:34 Not Reportable 12/20/18 11:34 Not Reportable 12/20/18 11:34 Not Reportable 12/20/18 11:34 Not Reportable 12/20/18 11:34 Not Reportable 12/20/18 11:34 Not Reportable 12/20/18 11:34 Not Reportable 12/20/18 11:34 Not Reportable 12/20/18 11:34 Not Reportable 12/20/18 11:34 Not Reportable 12/20/18 11:34 Not Reportable 12/20/18 11:34 Acanthocytes (Spur) Not Reportable 12/20/18 11:34 Rouleaux Not Reportable 12/20/18 11:34 Not Reportable 12/20/18 11:34 Not Reportable 12/20/18 11:34 Not Reportable 12/20/18 11:34 Not Reportable 12/20/18 11:34 Hem Pathologist Commnt No 12/20/18 11:34 PT 15.5 Sec. (12.2-14.9) H 12/22/18 00:21 INR 1.26 (0.87-1.13) H 12/22/18 00:21 APTT 22.4 Sec. (24.2-36.6) L 12/20/18 11:34 Sodium 142 mmol/L (137-145) 12/24/18 05:47 Potassium 3.2 mmol/L (3.6-5.0) L 12/24/18 05:47 Chloride 104.6 mmol/L (98-107) 12/24/18 05:47 Carbon Dioxide 22 mmol/L (22-30) 12/24/18 05:47 19 mmol/L 12/24/18 05:47 BUN 6 mg/dL (7-17) L 12/24/18 05:47 0.3 mg/dL (0.7-1.2) L 12/24/18 05:47 Estimated GFR > 60 ml/min 12/24/18 05:47 20 % 12/24/18 05:47 Glucose 90 mg/dL (65-100) 12/24/18 05:47 POC Glucose 152 (70-105) H 12/24/18 11:57 Calcium 8.5 mg/dL (8.4-10.2) 12/24/18 05:47 1.70 mg/dL (0.1-1.2) H 12/24/18 05:47 AST 54 units/L (5-40) H 12/24/18 05:47 ALT 58 units/L (7-56) H 12/24/18 05:47 123 units/L (35-129) 12/24/18 05:47 301 units/L (91-180) H 12/20/18 11:34 6.1 g/dL (6.3-8.2) L 12/24/18 05:47 2.6 g/dL (3.9-5) L 12/24/18 05:47 0.7 % 12/24/18 05:47 26 units/L (13-60) 12/24/18 05:47 Yellow (Yellow) 12/20/18 Unknown Clear (Clear) 12/20/18 Unknown 5.0 (5.0-7.0) 12/20/18 Unknown Ur Specific [place] 1.014 (1.003-1.030) 12/20/18 Unknown 30 mg/dl mg/dL (Negative) 12/20/18 Unknown Neg mg/dL (Negative) 12/20/18 Unknown Neg mg/dL (Negative) 12/20/18 Unknown Neg (Negative) 12/20/18 Unknown Neg (Negative) 12/20/18 Unknown Neg (Negative) 12/20/18 Unknown < 2.0 mg/dL (<2.0) 12/20/18 Unknown Ur Leukocyte Esterase Neg (Negative) 12/20/18 Unknown 1.0 /HPF (0.0-6.0) 12/20/18 Unknown 1.0 /HPF (0.0-6.0) 12/20/18 Unknown Active Medications - Current Medications Current Medications: Generic Name Dose Route Start Last Admin Trade Name Freq PRN Reason Stop Dose Admin Acetaminophen 650 mg 12/20/18 15:48 Tylenol PO Q4H PRN Pain MILD(1-3)/Fever >100.5/LEE Albuterol 2.5 mg 12/20/18 15:48 12/23/18 18:25 Proventil IH 2.5 mg Q4HRT PRN Administration Shortness Of Breath Furosemide 40 mg 12/24/18 14:00 12/24/18 14:02 Lasix IV 12/24/18 19:00 40 mg ONCE NR Administration Hydromorphone HCl 0.5 mg 12/20/18 15:48 12/24/18 05:48 Dilaudid IV 0.5 mg Q3H PRN Administration Pain , Severe (7-10) Ceftriaxone Sodium 1 gm in 50 mls @ 100 mls/hr 12/21/18 10:00 12/24/18 09:15 Rocephin/Ns 1 Gm/50 Ml IV 100 mls/hr Q24HR ANGEL Administration Protocol Metronidazole 500 mg in 100 mls @ 100 mls/hr 12/22/18 16:00 12/24/18 14:02 Flagyl 500 Mg/100 Ml IV 100 mls/hr Q8HR ANGEL Administration Protocol Ondansetron HCl 4 mg 12/20/18 15:48 12/23/18 13:10 Zofran IV 4 mg Q8H PRN Administration Nausea And Vomiting Oxycodone/Acetaminophen 1 tab 12/24/18 07:30 12/24/18 14:03 Percocet 5/325 PO 1 tab Q4H PRN Administration Pain, Moderate (4-6) Pantoprazole Sodium 40 mg 12/21/18 18:00 12/24/18 09:15 Protonix IV 40 mg QDAY ANGEL Administration Potassium Chloride 40 meq 12/24/18 14:20 Potassium Chloride PO 12/24/18 18:00 ONCE NR Sodium Chloride 10 ml 12/20/18 22:00 12/24/18 09:16 Sodium Chloride Flush Syringe 10 Ml IV 10 ml BID ANGEL Administration Sodium Chloride 10 ml 12/20/18 15:48 12/24/18 14:04 Sodium Chloride Flush Syringe 10 Ml IV 10 ml PRN PRN Administration LINE FLUSH Nutrition/Malnutrition Assess - Dietary Evaluation Nutrition/Malnutrition Findings: Nutrition Notes Start: 12/21/18 14:08 Freq: Status: Active Protocol: Document 12/21/18 14:08 ASHLYN (Rec: 12/21/18 14:13 ASHLYN [id number]) Nutrition Notes Need for Assessment generated from: radio 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 Pt admitted with c/o abd pain. She is receiving care at time of visit (11:10). Burn Absent Trauma Absent #1 Nutrition Diagnosis Altered GI function Etiology acute pancreatitis As Evidenced by Signs and Symptoms pt c/o abd pain and is NPO Is patient on ventilator? No Is Patient Ambulatory and/or Out of Bed No REE-([place]-St. Jeor-confined to bed) [phone] Calculation Used for Recommendations [place]-St Jeor Additional Notes Pro needs 1-1.2g/k-74g/ day Fluid needs 1ml/kcal Nutrition Intervention Change Diet Order: Diet advancement when medically feasible Goal #1 Advance diet to meet nutrient needs Anticipated Discharge Needs: Unable to identify at this time Follow-Up By: 12/24/18 Additional Comments F/U: diet advancement, MST assessment
--- NOTE | 2018-12-24 16:24 | Progress Note ---
Assessment and Plan 1. Gallstone pancreatitis - s/p ERCP and ES, with NO CBD stones found. Had CCY yesterday. - doing well. Will sign off. Subjective Date of service: 12/24/18 Interval history: Pt s/p surgery. Complains of abd pain. Objective - Constitutional Vitals: Vital Signs - 12hr 12/24/18 12/24/18 12/24/18 07:35 09:15 10:00 Temperature 98.6 F Pulse Rate 86 Respiratory 20 20 20 Rate Blood Pressure 154/83 O2 Sat by Pulse 94 94 Oximetry 12/24/18 13:03 Temperature 98.0 F Pulse Rate 90 Respiratory 20 Rate Blood Pressure 144/76 O2 Sat by Pulse 93 Oximetry General appearance: Present: no acute distress - EENT Eyes: PERRL, EOM intact ENT: hearing intact - Respiratory Respiratory effort: normal - Gastrointestinal General gastrointestinal: Present: soft, tender (Mild, RUQ) - Labs CBC & Chem 7: 12/24/18 05:47 12/24/18 05:47 Labs: Abnormal lab results 12/23/18 12/24/18 12/24/18 Range/Units 17:36 05:47 05:47 WBC 16.1 H (4.5-11.0) K/mm3 POC ABG pO2 (80-105) Potassium 3.2 L (3.6-5.0) mmol/L BUN 6 L (7-17) mg/dL Creatinine 0.3 L (0.7-1.2) mg/dL POC Glucose 112 H (70-105) Total Bilirubin 1.70 H (0.1-1.2) mg/dL AST 54 H (5-40) units/L ALT 58 H (7-56) units/L Total Protein 6.1 L (6.3-8.2) g/dL Albumin 2.6 L (3.9-5) g/dL 12/24/18 12/24/18 Range/Units 11:57 15:58 WBC (4.5-11.0) K/mm3 POC ABG pO2 61 L (80-105) Potassium (3.6-5.0) mmol/L BUN (7-17) mg/dL Creatinine (0.7-1.2) mg/dL POC Glucose 152 H (70-105) Total Bilirubin (0.1-1.2) mg/dL AST (5-40) units/L ALT (7-56) units/L Total Protein (6.3-8.2) g/dL Albumin (3.9-5) g/dL Medications & Allergies - Medications Allergies/Adverse Reactions: Allergies No Known Allergies Allergy (Verified 12/20/18 10:27) Home Medications: Home Medications Medication Instructions Recorded Confirmed Last Taken Type Levothyroxine [Synthroid] 50 mcg PO QAM 12/20/18 12/20/18 12/19/18 History Lisinopril [Zestril TAB] 2.5 mg PO QDAY 12/20/18 12/20/18 12/19/18 History Propranolol HCl 60 mg PO QDAY 12/20/18 12/20/18 12/19/18 History metFORMIN [Glucophage] 500 mg PO BID 12/20/18 12/20/18 12/19/18 History raNITIdine HCl [Zantac] 150 mg PO BID 12/20/18 12/20/18 12/19/18 History Active Medications: Generic Name Dose Route Start Last Admin Trade Name Freq PRN Reason Stop Dose Admin Acetaminophen 650 mg 12/20/18 15:48 Tylenol PO Q4H PRN Pain MILD(1-3)/Fever >100.5/LEE Albuterol 2.5 mg 12/20/18 15:48 12/23/18 18:25 Proventil IH 2.5 mg Q4HRT PRN Administration Shortness Of Breath Furosemide 40 mg 12/24/18 14:00 12/24/18 14:02 Lasix IV 12/24/18 19:00 40 mg ONCE NR Administration Hydromorphone HCl 0.5 mg 12/20/18 15:48 12/24/18 05:48 Dilaudid IV 0.5 mg Q3H PRN Administration Pain , Severe (7-10) Ceftriaxone Sodium 1 gm in 50 mls @ 100 mls/hr 12/21/18 10:00 12/24/18 09:15 Rocephin/Ns 1 Gm/50 Ml IV 100 mls/hr Q24HR ANGEL Administration Protocol Metronidazole 500 mg in 100 mls @ 100 mls/hr 12/22/18 16:00 12/24/18 14:02 Flagyl 500 Mg/100 Ml IV 100 mls/hr Q8HR ANGEL Administration Protocol Ondansetron HCl 4 mg 12/20/18 15:48 12/23/18 13:10 Zofran IV 4 mg Q8H PRN Administration Nausea And Vomiting Oxycodone/Acetaminophen 1 tab 12/24/18 07:30 12/24/18 14:03 Percocet 5/325 PO 1 tab Q4H PRN Administration Pain, Moderate (4-6) Pantoprazole Sodium 40 mg 12/21/18 18:00 12/24/18 09:15 Protonix IV 40 mg QDAY ANGEL Administration Potassium Chloride 40 meq 12/24/18 14:20 Potassium Chloride PO 12/24/18 18:00 ONCE NR Sodium Chloride 10 ml 12/20/18 22:00 12/24/18 09:16 Sodium Chloride Flush Syringe 10 Ml IV 10 ml BID ANGEL Administration Sodium Chloride 10 ml 12/20/18 15:48 12/24/18 14:04 Sodium Chloride Flush Syringe 10 Ml IV 10 ml PRN PRN Administration LINE FLUSH
--- NOTE | 2018-12-24 17:10 | Consultation ---
History of Present Illness Consult date: 12/24/18 Requesting physician: YANDEL MCFADDEN Reason for consult: pleural effusion, other (pulmonary edema) History of present illness: 83 yo F PMHx HTn, DM, GERD presented to the hospital due to abdominal pain. This pain began the day prior to admission and became progressively worse leading to her presentation. She notes the pain is mostly in her right upper quadrant and radiates to her back, and is worse with food. As the pain as a 6 out of 10. In the ER she was found to have acute pancreatitis on CT, and ultrasound revealed choledocholithiasis. She is s/p ERCP 12/22/18 and s/p robotic assisted cholecystectomy 12/23/18 She was noted to have increasing shortness of breath, CXR showed pulmonary edema per primary, ABG was done and supplemental oxygen initiated. I have been consulted for acute hypoxemic respiratory failure and pulmonary edema. Patient was seen and examined. Vitals, labs, medications, chart and imaging reviewed. Her is at the bedside with her. She denies any pleuritic chest pain, but has on going abdominal pain and distension She denies any fevers, sweats, chills, or any other systemic infective symptoms. Complains of distension and pain Past History Past Medical History: diabetes, GERD, hypertension Past Surgical History: hysterectomy, Other (EGD/dilation - Dr. Sampson, 2015 - for stricture) Social history: , lives with family. denies: smoking, alcohol abuse, prescription drug abuse Family history: diabetes (Reviewed), hypertension Medications and Allergies Allergies Allergy/AdvReac Type Severity Reaction Status Date / Time No Known Allergies Allergy Verified 12/20/18 10:27 Home Medications Medication Instructions Recorded Confirmed Last Taken Type Levothyroxine [Synthroid] 50 mcg PO QAM 12/20/18 12/20/18 12/19/18 History Lisinopril [Zestril TAB] 2.5 mg PO QDAY 12/20/18 12/20/18 12/19/18 History Propranolol HCl 60 mg PO QDAY 12/20/18 12/20/18 12/19/18 History metFORMIN [Glucophage] 500 mg PO BID 12/20/18 12/20/18 12/19/18 History raNITIdine HCl [Zantac] 150 mg PO BID 12/20/18 12/20/18 12/19/18 History Active Meds: Active Medications Acetaminophen (Tylenol) 650 mg PO Q4H PRN PRN Reason: Pain MILD(1-3)/Fever >100.5/LEE Albuterol (Proventil) 2.5 mg IH Q4HRT PRN PRN Reason: Shortness Of Breath Last Admin: 12/23/18 18:25 Dose: 2.5 mg Documented by: Furosemide (Lasix) 40 mg IV ONCE NR Stop: 12/24/18 19:00 Last Admin: 12/24/18 14:02 Dose: 40 mg Documented by: Hydromorphone HCl (Dilaudid) 0.5 mg IV Q3H PRN PRN Reason: Pain , Severe (7-10) Last Admin: 12/24/18 05:48 Dose: 0.5 mg Documented by: Ceftriaxone Sodium (Rocephin/Ns 1 Gm/50 Ml) 1 gm in 50 mls @ 100 mls/hr IV Q24HR [facility]; Protocol Last Admin: 12/24/18 09:15 Dose: 100 mls/hr Documented by: Metronidazole (Flagyl 500 Mg/100 Ml) 500 mg in 100 mls @ 100 mls/hr IV Q8HR ANGEL; Protocol Last Admin: 12/24/18 14:02 Dose: 100 mls/hr Documented by: Ondansetron HCl (Zofran) 4 mg IV Q8H PRN PRN Reason: Nausea And Vomiting Last Admin: 12/23/18 13:10 Dose: 4 mg Documented by: Oxycodone/Acetaminophen (Percocet 5/325) 1 tab PO Q4H PRN PRN Reason: Pain, Moderate (4-6) Last Admin: 12/24/18 14:03 Dose: 1 tab Documented by: Pantoprazole Sodium (Protonix) 40 mg IV QDAY [facility] Last Admin: 12/24/18 09:15 Dose: 40 mg Documented by: Potassium Chloride (Potassium Chloride) 40 meq PO ONCE NR Stop: 12/24/18 18:00 Sodium Chloride (Sodium Chloride Flush Syringe 10 Ml) 10 ml IV BID [facility] Last Admin: 12/24/18 09:16 Dose: 10 ml Documented by: Sodium Chloride (Sodium Chloride Flush Syringe 10 Ml) 10 ml IV PRN PRN PRN Reason: LINE FLUSH Last Admin: 12/24/18 14:04 Dose: 10 ml Documented by: Review of Systems Constitutional: fatigue, no weight loss, no weight gain, no fever, no chills, no night sweats Cardiovascular: no chest pain, no orthopnea, no palpitations, no rapid/irregular heart beat, no edema Respiratory: shortness of breath, no cough, no dyspnea on exertion, no congestion, no wheezing, no pain, no pain on inspiration Gastrointestinal: abdominal pain, no nausea, no vomiting, no diarrhea, no h ematemesis, no coffee ground emesis Musculoskeletal: no neck stiffness, no neck pain, no shooting arm pain, no low back pain, no shooting leg pain Neurological: no paralysis, no weakness, no parathesias, no numbness, no syncope, no tremors, no ataxia Psychiatric: no anxiety, no memory loss, no insomnia Physical Examination Vital signs: Vital Signs Temp Pulse Resp BP Pulse Ox 97.6 F 58 L 20 131/69 100 12/20/18 10:27 12/20/18 10:27 12/20/18 10:27 12/20/18 10:12/20/18 10:27 Constitutional: awake, Alert. Mild distress, diffuse abdominal pain and tenderness Head, Ears, Nose: Normocephalic, atraumatic. External ears, nose normal, NGT in nares Eyes: Conjunctivae/corneas clear. No icterus. No ptosis. Neck: Supple, no meningeal signs Oral: fair dentition, moist mucous membranes. No thrush Cardiovascular: S1, S2 normal. Normal rhythm Respiratory: Decreased AE bilaterally, clear to auscultation bilaterally GI: Soft, tender with abdominal distension; bowel sounds normal. No peritoneal signs OTF drain in place, healing surgical sites Musculoskeletal: No pedal edema, Skin: No rash or abscess Hem/Lymphatic: No palpable cervical or supraclavicular nodes. No lymphangitis Psych: no agitation Neurological: Moves all extremities, no focal defects Results - Laboratory Findings CBC and BMP: 12/25/18 04:58 12/25/18 04:58 ABG POC ABG pH 7.442 (7.35-7.45) 12/24/18 15:58 POC ABG pCO2 37.5 (35-45) 12/24/18 15:58 POC ABG pO2 61 (80-105) L 12/24/18 15:58 POC ABG HCO3 25.6 (22-26 mml/L) 12/24/18 15:58 POC ABG Total CO2 27 (23-27mmol/L) 12/24/18 15:58 POC ABG O2 Sat 92 12/24/18 15:58 PT/INR, D-dimer PT 15.5 Sec. (12.2-14.9) H 12/22/18 00:21 INR 1.26 (0.87-1.13) H 12/22/18 00:21 Abnormal lab findings: Abnormal Labs 12/20/18 12/20/18 12/20/18 11:34 11:34 11:34 WBC 20.2 H Hct 43.1 H Seg Neuts % (Manual) 82.0 H Lymphocytes % (Manual) 3.0 L Monocytes % (Manual) 13.0 H Seg Neutrophils # Man 16.6 H Lymphocytes # (Manual) 0.6 L Monocytes # (Manual) 2.6 H PT INR APTT 22.4 L POC ABG pO2 Potassium BUN Creatinine 0.6 L Glucose 167 H POC Glucose Calcium 10.3 H Total Bilirubin 1.80 H AST 204 H ALT 108 H Alkaline Phosphatase Lactate Dehydrogenase Total Protein Albumin Lipase 2716 H 12/20/18 12/21/18 12/21/18 11:34 04:47 08:42 WBC Hct Seg Neuts % (Manual) Lymphocytes % (Manual) Monocytes % (Manual) Seg Neutrophils # Man Lymphocytes # (Manual) Monocytes # (Manual) PT INR APTT POC ABG pO2 Potassium BUN Creatinine 0.5 L Glucose 111 H POC Glucose Calcium Total Bilirubin 1.70 H AST 56 H ALT 61 H Alkaline Phosphatase Lactate Dehydrogenase 301 H Total Protein Albumin 3.5 L Lipase 494 H 12/22/18 12/22/18 12/22/18 00:21 00:21 00:21 WBC 23.9 H Hct Seg Neuts % (Manual) Lymphocytes % (Manual) Monocytes % (Manual) Seg Neutrophils # Man Lymphocytes # (Manual) Monocytes # (Manual) PT 15.5 H INR 1.26 H APTT POC ABG pO2 Potassium BUN Creatinine 0.5 L Glucose 106 H POC Glucose Calcium Total Bilirubin 1.70 H AST ALT Alkaline Phosphatase Lactate Dehydrogenase Total Protein Albumin 3.3 L Lipase 147 H 12/23/18 12/23/18 12/23/18 04:57 04:57 17:36 WBC 17.4 H Hct Seg Neuts % (Manual) Lymphocytes % (Manual) Monocytes % (Manual) Seg Neutrophils # Man Lymphocytes # (Manual) Monocytes # (Manual) PT INR APTT POC ABG pO2 Potassium 3.4 L BUN 6 L Creatinine 0.4 L Glucose POC Glucose 112 H Calcium 8.3 L Total Bilirubin 3.80 H AST 134 H ALT 89 H Alkaline Phosphatase 141 H Lactate Dehydrogenase Total Protein 5.8 L Albumin 2.6 L Lipase 174 H 12/24/18 12/24/18 12/24/18 05:47 05:47 11:57 WBC 16.1 H Hct Seg Neuts % (Manual) Lymphocytes % (Manual) Monocytes % (Manual) Seg Neutrophils # Man Lymphocytes # (Manual) Monocytes # (Manual) PT INR APTT POC ABG pO2 Potassium 3.2 L BUN 6 L Creatinine 0.3 L Glucose POC Glucose 152 H Calcium Total Bilirubin 1.70 H AST 54 H ALT 58 H Alkaline Phosphatase Lactate Dehydrogenase Total Protein 6.1 L Albumin 2.6 L Lipase 12/24/18 15:58 WBC Hct Seg Neuts % (Manual) Lymphocytes % (Manual) Monocytes % (Manual) Seg Neutrophils # Man Lymphocytes # (Manual) Monocytes # (Manual) PT INR APTT POC ABG pO2 61 L Potassium BUN Creatinine Glucose POC Glucose Calcium Total Bilirubin AST ALT Alkaline Phosphatase Lactate Dehydrogenase Total Protein Albumin Lipase - Diagnostic Findings Chest x-ray: image reviewed (Small right pleural effusion, increased interstitial marking) Assessment and Plan Acute hypoxemic respiratory failure (paO2 61 on FIO2 20%) Acute pulmonary edema Cholelithiasis and Choledocholithiasis -s/p ERCP 12/22/18 -s/p robotic assisted cholecystectomy 12/23/18 Leukocytosis Hypertension Diabetes mellitus type 2 Hypothyroidism Will get CTA to r/o pulmonary embolism. The patient has not been on VTE prophylaxis, she is post op. Hold off any more diuretics, replete potassium. -Continue supplemental oxygen to keep O2 sats>90% -Incentive spirometry -Monitor hemodynamics closely -PRN bronchodilators as indicated -Out of bed to chair -Analgesia -Antibiotics per ID -Post op surgical management per general surgery -VTE prophylaxis -Replete potassium -CXR on 12/26/18 CONDITION: FAIR PROGNOSIS: FAIR CODE STATUS: FULL CODE Thank you for this consult. Will follow Care plan discussed with RT/RN Discussed with patient and her , who was at the bedside. Answered all their questions
[2018-12-25] MEDS: PERCOCET 5/325 PO PRN ×2 (02:31→10:48)
[2018-12-25 05:58] LABS: Hematocrit 34.2 % (30.3-42.9); Hemoglobin 11.5 gm/dl (10.1-14.3); Mean Corpuscular HGB Conc 34 % (30-34); Mean Corpuscular Volume 91 fl (79-97); Platelet Count 248 K/mm3 (140-440); Red Blood Count 3.76 M/mm3 (3.65-5.03); Red Cell Distribution Width 13.9 % (13.2-15.2)
[2018-12-25 06:22] LABS: Alanine Aminotransferase 41 units/L (7-56); Albumin 2.3 g/dL (3.9-5); BUN/Creatinine Ratio 17; Blood Urea Nitrogen 5 mg/dL (7-17); Hemolysis Index 34
[2018-12-25] MEDS ORDERED: LASIX IV NR (08:25)
--- NOTE | 2018-12-25 10:20 | Progress Note ---
Assessment and Plan - Patient Problems (1) Gallstone pancreatitis Current Visit: Yes Status: Acute Plan to address problem: Pt stable. s/p robotic assisted cholecystectomy - POD#1. Appears to be doing well. Discussed case with Dr. Baker. They are currently treating her for pulmonary edema. I requested that we keep her one more day so that I may reassess her OTF drain tomorrow. I would like to remove it before she goes home. I think the drainage appearance is okay. I think 1 more day will confirm that there is no bile leaking. Please call with questions. Subjective Date of service: 12/25/18 Patient Reports: Positive: no new complaints, feels better, pain is less, tole rating a regular diet. Negative: nausea, vomiting Objective Vital Signs - 12hr 12/25/18 12/25/18 12/25/18 02:26 08:07 10:00 Temperature 98.9 F 98.4 F Pulse Rate 82 77 Respiratory 18 20 Rate Blood Pressure 165/82 150/82 O2 Sat by Pulse 95 95 95 Oximetry - General physical appearance no distress, no pain, other (sitting up in bed talking on the phone) - Respiratory normal respiratory effort - Abdomen soft, not tender, not distended, not guarding, not rigid, other (OTF with mainly serous drainage. some bubbles when shaken. ) - Integumentary no rash, no growths, no abnormal pigmentation - Psychiatric oriented to time, oriented to person, oriented to place, speech is normal, memory intact - Labs 12/25/18 04:58 12/25/18 04:58 Diabetes panel 12/25/18 Range/Units 04:58 Sodium 138 (137-145) mmol/L Potassium 3.2 L (3.6-5.0) mmol/L Chloride 100.9 (98-107) mmol/L Carbon Dioxide 26 (22-30) mmol/L BUN 5 L (7-17) mg/dL Creatinine 0.3 L (0.7-1.2) mg/dL Glucose 110 H (65-100) mg/dL Calcium 8.0 L (8.4-10.2) mg/dL AST 33 (5-40) units/L ALT 41 (7-56) units/L Alkaline Phosphatase 117 (35-129) units/L Total Protein 6.0 L (6.3-8.2) g/dL Albumin 2.3 L (3.9-5) g/dL Calcium panel 12/25/18 Range/Units 04:58 Calcium 8.0 L (8.4-10.2) mg/dL Albumin 2.3 L (3.9-5) g/dL Pituitary panel 12/25/18 Range/Units 04:58 Sodium 138 (137-145) mmol/L Potassium 3.2 L (3.6-5.0) mmol/L Chloride 100.9 (98-107) mmol/L Carbon Dioxide 26 (22-30) mmol/L BUN 5 L (7-17) mg/dL Creatinine 0.3 L (0.7-1.2) mg/dL Glucose 110 H (65-100) mg/dL Calcium 8.0 L (8.4-10.2) mg/dL Adrenal panel 12/25/18 Range/Units 04:58 Sodium 138 (137-145) mmol/L Potassium 3.2 L (3.6-5.0) mmol/L Chloride 100.9 (98-107) mmol/L Carbon Dioxide 26 (22-30) mmol/L BUN 5 L (7-17) mg/dL Creatinine 0.3 L (0.7-1.2) mg/dL Glucose 110 H (65-100) mg/dL Calcium 8.0 L (8.4-10.2) mg/dL Total Bilirubin 1.20 (0.1-1.2) mg/dL AST 33 (5-40) units/L ALT 41 (7-56) units/L Alkaline Phosphatase 117 (35-129) units/L Total Protein 6.0 L (6.3-8.2) g/dL Albumin 2.3 L (3.9-5) g/dL
--- NOTE | 2018-12-25 10:39 | Progress Note ---
Assessment and Plan Assessment and plan: Acute gallstone pancreatitis l Admitted to [facility] unit Dilaudid iv prn Acute resp failure with shortness of breath due to pulm edema Supplemental Oxygen Repeat CXR tomorrow Acute pulm edema lasix iv 1 dose ordered Cholelithiasis and Choledocholithiasis s/p ERCP 12/22/18 s/p robotic asisted cholecystectomy 12/23/18 Leukocytosis ID Physician following Ceftriaxone 1g iv daily Hypertension Monitior BP Diabetes mellitus type 2 fingerstick q6h Hypothyroidism Continue Levothyroxine Full code status Discussed with Dr. Campos. Patient not stable for dischage because of shortness of breath, also Surgeon recommends observe OTF drain one more day History Interval history: Less Abdominal pain Less Shortness of breath Hospitalist Physical - Physical exam Narrative exam: Gen: Not in acute distress, sitting up in chair, HEENT: Normocephalic, atraumatic Neck: supple, no JVD Heart: S1 and S2 reg, no murmurs, rubs or gallop Lungs: Clear to auscultation, no wheeze Abd: soft, mild tender, no rebound, normal BS, surgical drain Ext: No edema, no clubbing, no cyanosis Neuro: Awake,alert, Oriented X 3. No focal neuro signs Psych: normal mood - Constitutional Vitals: Temp Pulse Resp BP Pulse Ox 98.4 F 77 20 150/82 95 12/25/18 08:07 12/25/18 08:07 12/25/18 08:07 12/25/18 08:07 12/25/18 10:00 General appearance: Present: no acute distress Results - Labs CBC & Chem 7: 12/25/18 04:58 12/25/18 04:58 Labs: Laboratory Last Values WBC 14.8 K/mm3 (4.5-11.0) H 12/25/18 04:58 RBC 3.76 M/mm3 (3.65-5.03) 12/25/18 04:58 Hgb 11.5 gm/dl (10.1-14.3) 12/25/18 04:58 Hct 34.2 % (30.3-42.9) 12/25/18 04:58 MCV 91 fl (79-97) 12/25/18 04:58 MCH 31 pg (28-32) 12/25/18 04:58 MCHC 34 % (30-34) 12/25/18 04:58 RDW 13.9 % (13.2-15.2) 12/25/18 04:58 Plt Count 248 K/mm3 (140-440) 12/25/18 04:58 Add Manual Diff Complete 12/20/18 11:34 Total Counted 100 12/20/18 11:34 Seg Neuts % (Manual) 82.0 % (40.0-70.0) H 12/20/18 11:34 1.0 % 12/20/18 11:34 3.0 % (13.4-35.0) L 12/20/18 11:34 Reactive Lymphs % (Man) 0 % 12/20/18 11:34 13.0 % (0.0-7.3) H 12/20/18 11:34 1.0 % (0.0-4.3) 12/20/18 11:34 0 % (0.0-1.8) 12/20/18 11:34 0 % 12/20/18 11:34 0 % 12/20/18 11:34 0 % 12/20/18 11:34 0 % 12/20/18 11:34 Nucleated RBC % Not Reportable 12/20/18 11:34 Seg Neutrophils # Man 16.6 K/mm3 (1.8-7.7) H 12/20/18 11:34 Band Neutrophils # 0.2 K/mm3 12/20/18 11:34 0.6 K/mm3 (1.2-5.4) L 12/20/18 11:34 Abs React Lymphs (Man) 0.0 K/mm3 12/20/18 11:34 2.6 K/mm3 (0.0-0.8) H 12/20/18 11:34 0.2 K/mm3 (0.0-0.4) 12/20/18 11:34 0.0 K/mm3 (0.0-0.1) 12/20/18 11:34 0.0 K/mm3 12/20/18 11:34 0.0 K/mm3 12/20/18 11:34 0.0 K/mm3 12/20/18 11:34 Blast Cells # 0.0 K/mm3 12/20/18 11:34 WBC Morphology Not Reportable 12/20/18 11:34 Hypersegmented Neuts Not Reportable 12/20/18 11:34 Hyposegmented Neuts Not Reportable 12/20/18 11:34 Hypogranular Neuts Not Reportable 12/20/18 11:34 Not Reportable 12/20/18 11:34 Not Reportable 12/20/18 11:34 Not Reportable 12/20/18 11:34 Not Reportable 12/20/18 11:34 Not Reportable 12/20/18 11:34 Not Reportable 12/20/18 11:34 Consistent w auto 12/20/18 11:34 Not Reportable 12/20/18 11:34 Plt Clumps, EDTA Not Reportable 12/20/18 11:34 Not Reportable 12/20/18 11:34 Not Reportable 12/20/18 11:34 Not Reportable 12/20/18 11:34 Plt Morphology Comment Not Reportable 12/20/18 11:34 RBC Morphology Normal 12/20/18 11:34 Dimorphic RBCs Not Reportable 12/20/18 11:34 Not Reportable 12/20/18 11:34 Not Reportable 12/20/18 11:34 Not Reportable 12/20/18 11:34 Not Reportable 12/20/18 11:34 Not Reportable 12/20/18 11:34 Not Reportable 12/20/18 11:34 Not Reportable 12/20/18 11:34 Not Reportable 12/20/18 11:34 Not Reportable 12/20/18 11:34 Not Reportable 12/20/18 11:34 Not Reportable 12/20/18 11:34 Not Reportable 12/20/18 11:34 Not Reportable 12/20/18 11:34 Not Reportable 12/20/18 11:34 Not Reportable 12/20/18 11:34 Not Reportable 12/20/18 11:34 Not Reportable 12/20/18 11:34 Not Reportable 12/20/18 11:34 Not Reportable 12/20/18 11:34 Acanthocytes (Spur) Not Reportable 12/20/18 11:34 Rouleaux Not Reportable 12/20/18 11:34 Not Reportable 12/20/18 11:34 Not Reportable 12/20/18 11:34 Not Reportable 12/20/18 11:34 Not Reportable 12/20/18 11:34 Hem Pathologist Commnt No 12/20/18 11:34 PT 15.5 Sec. (12.2-14.9) H 12/22/18 00:21 INR 1.26 (0.87-1.13) H 12/22/18 00:21 APTT 22.4 Sec. (24.2-36.6) L 12/20/18 11:34 POC ABG pH 7.442 (7.35-7.45) 12/24/18 15:58 POC ABG pCO2 37.5 (35-45) 12/24/18 15:58 POC ABG pO2 61 (80-105) L 12/24/18 15:58 POC ABG HCO3 25.6 (22-26 mml/L) 12/24/18 15:58 POC ABG Total CO2 27 (23-27mmol/L) 12/24/18 15:58 POC ABG O2 Sat 92 12/24/18 15:58 POC ABG Base Excess 1 ((-2) - (+3)mmol/L) 12/24/18 15:58 20 % 12/24/18 15:58 Sodium 138 mmol/L (137-145) 12/25/18 04:58 Potassium 3.2 mmol/L (3.6-5.0) L 12/25/18 04:58 Chloride 100.9 mmol/L (98-107) 12/25/18 04:58 Carbon Dioxide 26 mmol/L (22-30) 12/25/18 04:58 14 mmol/L 12/25/18 04:58 BUN 5 mg/dL (7-17) L 12/25/18 04:58 0.3 mg/dL (0.7-1.2) L 12/25/18 04:58 Estimated GFR > 60 ml/min 12/25/18 04:58 17 % 12/25/18 04:58 Glucose 110 mg/dL (65-100) H 12/25/18 04:58 POC Glucose 107 (70-105) H 12/25/18 07:03 Calcium 8.0 mg/dL (8.4-10.2) L 12/25/18 04:58 1.20 mg/dL (0.1-1.2) 12/25/18 04:58 AST 33 units/L (5-40) 12/25/18 04:58 ALT 41 units/L (7-56) 12/25/18 04:58 117 units/L (35-129) 12/25/18 04:58 301 units/L (91-180) H 12/20/18 11:34 6.0 g/dL (6.3-8.2) L 12/25/18 04:58 2.3 g/dL (3.9-5) L 12/25/18 04:58 0.6 % 12/25/18 04:58 26 units/L (13-60) 12/24/18 05:47 Yellow (Yellow) 12/20/18 Unknown Clear (Clear) 12/20/18 Unknown 5.0 (5.0-7.0) 12/20/18 Unknown Ur Specific [place] 1.014 (1.003-1.030) 12/20/18 Unknown 30 mg/dl mg/dL (Negative) 12/20/18 Unknown Neg mg/dL (Negative) 12/20/18 Unknown Neg mg/dL (Negative) 12/20/18 Unknown Neg (Negative) 12/20/18 Unknown Neg (Negative) 12/20/18 Unknown Neg (Negative) 12/20/18 Unknown < 2.0 mg/dL (<2.0) 12/20/18 Unknown Ur Leukocyte Esterase Neg (Negative) 12/20/18 Unknown 1.0 /HPF (0.0-6.0) 12/20/18 Unknown 1.0 /HPF (0.0-6.0) 12/20/18 Unknown Active Medications - Current Medications Current Medications: Generic Name Dose Route Start Last Admin Trade Name Freq PRN Reason Stop Dose Admin Acetaminophen 650 mg 12/20/18 15:48 Tylenol PO Q4H PRN Pain MILD(1-3)/Fever >100.5/LEE Albuterol 2.5 mg 12/20/18 15:48 12/23/18 18:25 Proventil IH 2.5 mg Q4HRT PRN Administration Shortness Of Breath Hydromorphone HCl 0.5 mg 12/20/18 15:48 12/24/18 05:48 Dilaudid IV 0.5 mg Q3H PRN Administration Pain , Severe (7-10) Ceftriaxone Sodium 1 gm in 50 mls @ 100 mls/hr 12/21/18 10:00 12/24/18 09:15 Rocephin/Ns 1 Gm/50 Ml IV 100 mls/hr Q24HR ANGEL Administration Protocol Metronidazole 500 mg in 100 mls @ 100 mls/hr 12/22/18 16:00 12/24/18 21:56 Flagyl 500 Mg/100 Ml IV 100 mls/hr Q8HR ANGEL Administration Protocol Ondansetron HCl 4 mg 12/20/18 15:48 12/23/18 13:10 Zofran IV 4 mg Q8H PRN Administration Nausea And Vomiting Oxycodone/Acetaminophen 1 tab 12/24/18 07:30 12/25/18 02:31 Percocet 5/325 PO 1 tab Q4H PRN Administration Pain, Moderate (4-6) Pantoprazole Sodium 40 mg 12/21/18 18:00 12/24/18 09:15 Protonix IV 40 mg QDAY ANGEL Administration Potassium Chloride 40 meq 12/25/18 09:00 Potassium Chloride FEEDTUBE 12/25/18 13:01 Q4H ANGEL Sodium Chloride 10 ml 12/20/18 22:00 12/24/18 21:58 Sodium Chloride Flush Syringe 10 Ml IV 10 ml BID ANGEL Administration Sodium Chloride 10 ml 12/20/18 15:48 12/24/18 14:04 Sodium Chloride Flush Syringe 10 Ml IV 10 ml PRN PRN Administration LINE FLUSH Nutrition/Malnutrition Assess - Dietary Evaluation Nutrition/Malnutrition Findings: Nutrition Notes Start: 12/21/18 14:08 Freq: Status: Active Protocol: Document 12/24/18 16:59 RM (Rec: 12/24/18 17:08 [email or web address]) Nutrition Notes Initial or Follow up Reassessment Current Diagnosis Diabetes,Hypertension Other Pertinent Diagnosis SIRS, acute pancreatitis, GERD , S/P cholestectomy Current Diet Cardiac/Consistent CHO Labs/Tests Reviewed Pertinent Medications Reviewed Height 5 ft 4.5 in Weight 61.7 kg Usual Body Weight 62.73 kg [place] Body Weight (kg) 55.68 BMI 22.9 Subjective/Other Information Pt stated that her appetite is alright and that she ate 25% of her breakfast. Stated prior to this visit she had not eaten since Thursday (X 4 days). Admitted to N/V BAKER TEST but none here. Stated UBW was 138 lbs 3 months ago. Percent of energy/protein needs met: 38%/34% Burn Absent Trauma Absent #1 Nutrition Diagnosis Altered GI function Diagnosis Progress(for reassessment Continues documentation) Is patient on ventilator? No Is Patient Ambulatory and/or Out of Bed No REE-([facility]-confined to bed) [phone] Calculation Used for Recommendations [facility] Additional Notes Pro needs 1.2-1.5g/k-93g/ day Fluid needs 1ml/kcal Nutrition Intervention Change Diet Order: Continue current Add Supplement/Snack (indicate name/kcal Glucerna butter pecan, /protein ) chocolate 1 daily Provides kCal: 220 Provides Protein (gm) 10 Goal #1 Meet at least 75% of calorie and protein needs via PO and ONS intakes Anticipated Discharge Needs: Cardiac/Consistent CHO diet Follow-Up By: 12/27/18 Additional Comments Follow for PO and ONS intakes
[2018-12-25] MEDS: POTASSIUM CHLORIDE FEEDTUBE SCH ×2 (10:49→14:12)
[2018-12-25] MEDS: ROCEPHIN/NS 1 GM/50 ML 1 GM/50 ML BAG IV SCH (10:49)
[2018-12-25] MEDS: PROTONIX IV SCH (10:50)
[2018-12-25] MEDS: SODIUM CHLORIDE FLUSH SYRINGE 10 ML IV SCH ×2 (10:52→22:20)
[2018-12-25] MEDS: FLAGYL 500 MG/100 ML 500 MG/100 ML BAG IV SCH ×3 (14:15→22:18)
[2018-12-25] MEDS: DILAUDID IV PRN (14:27)
--- NOTE | 2018-12-25 14:48 | Progress Note ---
Assessment and Plan Patient alert, awake. Resting on 3 litres O2. O2 saturation 96%.No complaint of chest pain, shortness of breath and cough. Patient S/P cholecystectomy for gall stone pancreatitis. - Patient Problems (1) SIRS (systemic inflammatory response syndrome) Current Visit: Yes Status: Acute Plan to address problem: O2 3 litres via nasal canula. Patient has leukocytosis. Patient is on ceftrioxone and Metronidazole. (2) Choledocholithiasis Current Visit: Yes Status: Acute Plan to address problem: Patient S/P cholecystectomy. Continue Nasal O2 and incentive spirometry. (3) Diabetes Current Visit: Yes Status: Acute Plan to address problem: Management as per primary care. (4) GERD (gastroesophageal reflux disease) Current Visit: Yes Status: Acute Qualifiers: Esophagitis presence: without esophagitis Qualified Code(s): K21.9 - Gastro-esophageal reflux disease without esophagitis Plan to address problem: Patient is on protonix. (5) Gallstone pancreatitis Current Visit: Yes Status: Acute Plan to address problem: S/P Cholecystectomy. Continue nasal O2 and incentive spirometry. (6) HTN (hypertension) Current Visit: Yes Status: Acute Qualifiers: Hypertension type: essential hypertension Qualified Code(s): I10 - Essential (primary) hypertension Plan to address problem: Management as per primary care. Subjective Date of service: 12/25/18 Interval history: Patient alert, awake. Resting on 3 litres O2. O2 saturation 96%.No complaint of chest pain, shortness of breath and cough. Patient S/P cholecystectomy for gall stone pancreatitis. Objective Vital Signs - 12hr 12/25/18 12/25/18 12/25/18 08:07 10:00 13:08 Temperature 98.4 F 97.8 F Pulse Rate 77 88 Respiratory 20 20 Rate Blood Pressure 150/82 152/86 O2 Sat by Pulse 95 95 96 Oximetry Constitutional: no acute distress, alert Eyes: non-icteric ENT: oropharynx moist Neck: supple Ascultation: Bilateral: clear Cardiovascular: regular rate and rhythm Gastrointestinal: hypoactive bowel sounds, other (Tenderness at incision site.) Integumentary: normal Extremities: no cyanosis, no edema Neurologic: normal mental status, non-focal exam, pupils equal and round, CN II- XII normal Psychiatric: mood appropriate CBC and BMP: 12/25/18 04:58 12/25/18 04:58 ABG, PT/INR, D-dimer: ABG POC ABG pH 7.442 (7.35-7.45) 12/24/18 15:58 POC ABG pCO2 37.5 (35-45) 12/24/18 15:58 POC ABG pO2 61 (80-105) L 12/24/18 15:58 POC ABG HCO3 25.6 (22-26 mml/L) 12/24/18 15:58 POC ABG Total CO2 27 (23-27mmol/L) 12/24/18 15:58 POC ABG O2 Sat 92 12/24/18 15:58 PT/INR, D-dimer PT 15.5 Sec. (12.2-14.9) H 12/22/18 00:21 INR 1.26 (0.87-1.13) H 12/22/18 00:21 Abnormal lab findings: Abnormal Labs 12/20/18 12/20/18 12/20/18 11:34 11:34 11:34 WBC 20.2 H Hct 43.1 H Seg Neuts % (Manual) 82.0 H Lymphocytes % (Manual) 3.0 L Monocytes % (Manual) 13.0 H Seg Neutrophils # Man 16.6 H Lymphocytes # (Manual) 0.6 L Monocytes # (Manual) 2.6 H PT INR APTT 22.4 L POC ABG pO2 Potassium BUN Creatinine 0.6 L Glucose 167 H POC Glucose Calcium 10.3 H Total Bilirubin 1.80 H AST 204 H ALT 108 H Alkaline Phosphatase Lactate Dehydrogenase Total Protein Albumin Lipase 2716 H 12/20/18 12/21/18 12/21/18 11:34 04:47 08:42 WBC Hct Seg Neuts % (Manual) Lymphocytes % (Manual) Monocytes % (Manual) Seg Neutrophils # Man Lymphocytes # (Manual) Monocytes # (Manual) PT INR APTT POC ABG pO2 Potassium BUN Creatinine 0.5 L Glucose 111 H POC Glucose Calcium Total Bilirubin 1.70 H AST 56 H ALT 61 H Alkaline Phosphatase Lactate Dehydrogenase 301 H Total Protein Albumin 3.5 L Lipase 494 H 12/22/18 12/22/18 12/22/18 00:21 00:21 00:21 WBC 23.9 H Hct Seg Neuts % (Manual) Lymphocytes % (Manual) Monocytes % (Manual) Seg Neutrophils # Man Lymphocytes # (Manual) Monocytes # (Manual) PT 15.5 H INR 1.26 H APTT POC ABG pO2 Potassium BUN Creatinine 0.5 L Glucose 106 H POC Glucose Calcium Total Bilirubin 1.70 H AST ALT Alkaline Phosphatase Lactate Dehydrogenase Total Protein Albumin 3.3 L Lipase 147 H 12/23/18 12/23/18 12/23/18 04:57 04:57 17:36 WBC 17.4 H Hct Seg Neuts % (Manual) Lymphocytes % (Manual) Monocytes % (Manual) Seg Neutrophils # Man Lymphocytes # (Manual) Monocytes # (Manual) PT INR APTT POC ABG pO2 Potassium 3.4 L BUN 6 L Creatinine 0.4 L Glucose POC Glucose 112 H Calcium 8.3 L Total Bilirubin 3.80 H AST 134 H ALT 89 H Alkaline Phosphatase 141 H Lactate Dehydrogenase Total Protein 5.8 L Albumin 2.6 L Lipase 174 H 12/24/18 12/24/18 12/24/18 05:47 05:47 11:57 WBC 16.1 H Hct Seg Neuts % (Manual) Lymphocytes % (Manual) Monocytes % (Manual) Seg Neutrophils # Man Lymphocytes # (Manual) Monocytes # (Manual) PT INR APTT POC ABG pO2 Potassium 3.2 L BUN 6 L Creatinine 0.3 L Glucose POC Glucose 152 H Calcium Total Bilirubin 1.70 H AST 54 H ALT 58 H Alkaline Phosphatase Lactate Dehydrogenase Total Protein 6.1 L Albumin 2.6 L Lipase 12/24/18 12/24/18 12/25/18 15:58 17:30 00:14 WBC Hct Seg Neuts % (Manual) Lymphocytes % (Manual) Monocytes % (Manual) Seg Neutrophils # Man Lymphocytes # (Manual) Monocytes # (Manual) PT INR APTT POC ABG pO2 61 L Potassium BUN Creatinine Glucose POC Glucose 140 H 128 H Calcium Total Bilirubin AST ALT Alkaline Phosphatase Lactate Dehydrogenase Total Protein Albumin Lipase 12/25/18 12/25/18 12/25/18 04:58 04:58 07:03 WBC 14.8 H Hct Seg Neuts % (Manual) Lymphocytes % (Manual) Monocytes % (Manual) Seg Neutrophils # Man Lymphocytes # (Manual) Monocytes # (Manual) PT INR APTT POC ABG pO2 Potassium 3.2 L BUN 5 L Creatinine 0.3 L Glucose 110 H POC Glucose 107 H Calcium 8.0 L Total Bilirubin AST ALT Alkaline Phosphatase Lactate Dehydrogenase Total Protein 6.0 L Albumin 2.3 L Lipase 12/25/18 11:43 WBC Hct Seg Neuts % (Manual) Lymphocytes % (Manual) Monocytes % (Manual) Seg Neutrophils # Man Lymphocytes # (Manual) Monocytes # (Manual) PT INR APTT POC ABG pO2 Potassium BUN Creatinine Glucose POC Glucose 206 H Calcium Total Bilirubin AST ALT Alkaline Phosphatase Lactate Dehydrogenase Total Protein Albumin Lipase Chest x-ray: report reviewed ([facility] PUL[facility]ST[facility].), image reviewed
[2018-12-25] MEDS ORDERED: LASIX IV ONE (16:00)
[2018-12-25] MEDS: KCL 10MEQ/100ML 10 MEQ/100 ML BAG IV SCH ×2 (16:36→17:44)
[2018-12-25] MEDS: HEPARIN SUB-Q SCH ×2 (16:47→22:18)
--- NOTE | 2018-12-25 19:49 | Cat Scan Report ---
CT CHEST WITH CONTRAST INDICATION / CLINICAL INFORMATION: Shortness of breath, Chest pain. TECHNIQUE: Axial CT images were obtained through the chest after 100 mL Omnipaque [address] scans at this location are performed using CT dose reduction for ALARA by means of automated exposure contr ol. COMPARISON: 12/24/2018 chest radiograph FINDINGS: Heart size is normal. No pericardial effusion. No aneurysm of the thoracic aorta. No mediastinal or h ilar lymphadenopathy. There are moderate bilateral pleural effusions which cause compressive atelecta sis of most of the lower lobes. A calcified gallstone is noted in the upper abdomen. Calcified granul omas in the spleen. No acute skeletal abnormality. IMPRESSION: 1. Moderate bilateral pleural effusions with compressive atelectasis of most of the lower lobes. The upper lobes and middle lobe remain relatively well aerated. 2. Cholelithiasis. Signer Name: Chavez Frankel MD Signed: 12/25/2018 7:44 PM Workstation Name: [id number]
[2018-12-26] MEDS: PERCOCET 5/325 PO PRN ×2 (00:01→22:19)
[2018-12-26 06:06] LABS: Hematocrit 34.3 % (30.3-42.9); Hemoglobin 11.5 gm/dl (10.1-14.3); Mean Corpuscular HGB Conc 34 % (30-34); Mean Corpuscular Volume 91 fl (79-97); Platelet Count 263 K/mm3 (140-440); Red Blood Count 3.78 M/mm3 (3.65-5.03); Red Cell Distribution Width 14.3 % (13.2-15.2)
[2018-12-26] MEDS: FLAGYL 500 MG/100 ML 500 MG/100 ML BAG IV SCH ×3 (06:14→22:15)
[2018-12-26] MEDS: HEPARIN SUB-Q SCH ×3 (06:14→22:15)
[2018-12-26 06:28] LABS: BUN/Creatinine Ratio 20; Blood Urea Nitrogen 6 mg/dL (7-17); Calcium 8.5 mg/dL (8.4-10.2); Hemolysis Index 3
[2018-12-26] MEDS: SODIUM CHLORIDE FLUSH SYRINGE 10 ML IV SCH ×2 (09:42→22:18)
[2018-12-26] MEDS: ROCEPHIN/NS 1 GM/50 ML 1 GM/50 ML BAG IV SCH (09:45)
--- NOTE | 2018-12-26 10:47 | Progress Note ---
Assessment and Plan - Patient Problems (1) Gallstone pancreatitis Current Visit: Yes Status: Acute Plan to address problem: Pt stable. s/p robotic assisted cholecystectomy - POD#2. Appears to be doing well. They are currently treating her for pulmonary edema/pleural effusions. No evidence of bile leak. Drain was removed. Patient may be discharged from our perspective. Rec: 1) May shower in 48 hours. Pat dry wounds. No sitting in a bath. 2) diet as tolerated. 3) ambulate frequently 4) f/u with Dr. Anthony in 10-14 days. Will sign off. Please call with questions. Subjective Date of service: 12/26/18 Patient Reports: Positive: no new complaints, pain is less, tolerating a regular diet (but poor appetite). Negative: nausea, vomiting Objective Vital Signs - 12hr 12/26/18 12/26/18 12/26/18 00:01 01:01 02:50 Temperature 99.2 F Pulse Rate 81 Respiratory 20 20 18 Rate Blood Pressure 142/83 O2 Sat by Pulse 95 Oximetry 12/26/18 12/26/18 07:33 08:16 Temperature 98.8 F Pulse Rate 80 Respiratory 18 Rate Blood Pressure 144/78 O2 Sat by Pulse 96 96 Oximetry - General physical appearance no distress, no pain - Eyes normal occular movement - Respiratory normal expansion, normal respiratory effort - Abdomen soft, tender (mild), distended (mild), not guarding, not rigid, surgical scars (C/d/I), other (OTF with serous drainage. Removed easily. ) - Integumentary no rash, no growths, no abnormal pigmentation - Psychiatric oriented to time, oriented to person, oriented to place, speech is normal, memory intact - Labs 12/26/18 05:16 12/26/18 05:16 Diabetes panel 12/26/18 Range/Units 05:16 Sodium 138 (137-145) mmol/L Potassium 4.3 D (3.6-5.0) mmol/L Chloride 101.3 (98-107) mmol/L Carbon Dioxide 26 (22-30) mmol/L BUN 6 L (7-17) mg/dL Creatinine 0.3 L (0.7-1.2) mg/dL Glucose 114 H (65-100) mg/dL Calcium 8.5 (8.4-10.2) mg/dL Calcium panel 12/26/18 Range/Units 05:16 Calcium 8.5 (8.4-10.2) mg/dL Pituitary panel 12/26/18 Range/Units 05:16 Sodium 138 (137-145) mmol/L Potassium 4.3 D (3.6-5.0) mmol/L Chloride 101.3 (98-107) mmol/L Carbon Dioxide 26 (22-30) mmol/L BUN 6 L (7-17) mg/dL Creatinine 0.3 L (0.7-1.2) mg/dL Glucose 114 H (65-100) mg/dL Calcium 8.5 (8.4-10.2) mg/dL Adrenal panel 12/26/18 Range/Units 05:16 Sodium 138 (137-145) mmol/L Potassium 4.3 D (3.6-5.0) mmol/L Chloride 101.3 (98-107) mmol/L Carbon Dioxide 26 (22-30) mmol/L BUN 6 L (7-17) mg/dL Creatinine 0.3 L (0.7-1.2) mg/dL Glucose 114 H (65-100) mg/dL Calcium 8.5 (8.4-10.2) mg/dL
[2018-12-26] MEDS: DILAUDID IV PRN (11:13)
[2018-12-26] MEDS: PROTONIX IV SCH (11:18)
--- NOTE | 2018-12-26 12:59 | Progress Note ---
Assessment and Plan Patient alert, awake. Resting on 3 litres O2. O2 saturation 96%.No complaint of chest pain, shortness of breath and cough. Patient S/P cholecystectomy for gall stone pancreatitis. AT scan chest done 12/25/18 1. Moderate bilateral pleural effusions with compressive atelectasis of most of the lower lobes. The upper lobes and middle lobe remain relatively well aerated. Obtaining ultrasound of chest. Recommend aerosolized bronchodilators and incentive spirometry. Continue ceftrioxone and metronidazole. - Patient Problems (1) SIRS (systemic inflammatory response syndrome) Current Visit: Yes Status: Acute Plan to address problem: O2 3 litres via nasal canula. Patient has leukocytosis. Patient is on ceftrioxone and Metronidazole. (2) Choledocholithiasis Current Visit: Yes Status: Acute Plan to address problem: Patient S/P cholecystectomy. Continue Nasal O2 and incentive spirometry. Aerosolized bronchodilators. (3) Diabetes Current Visit: Yes Status: Acute Plan to address problem: Management as per primary care. (4) GERD (gastroesophageal reflux disease) Current Visit: Yes Status: Acute Qualifiers: Esophagitis presence: without esophagitis Qualified Code(s): K21.9 - Gastro-esophageal reflux disease without esophagitis Plan to address problem: Patient is on protonix. (5) Gallstone pancreatitis Current Visit: Yes Status: Acute Plan to address problem: S/P Cholecystectomy. Continue nasal O2 and incentive spirometry. (6) HTN (hypertension) Current Visit: Yes Status: Acute Qualifiers: Hypertension type: essential hypertension Qualified Code(s): I10 - Essential (primary) hypertension Plan to address problem: Management as per primary care. (7) Pleural effusion Current Visit: Yes Status: Acute Plan to address problem: Obtaining ultrasound of chest to quantitate. (8) Atelectasis of both lungs Current Visit: Yes Status: Acute Plan to address problem: O2 supplementation. Incentive spirometry. Albuterol/atrovent aerosol treatments q 6 hours. Subjective Date of service: 12/26/18 Interval history: Patient alert, awake. Resting on 2 litres O2. O2 saturation 96%.No complaint of chest pain, shortness of breath and cough. Patient S/P cholecystectomy for gall stone pancreatitis. CAT scan chest done 12/25/18 1. Moderate bilateral pleural effusions with compressive atelectasis of most of the lower lobes. The upper lobes and middle lobe remain relatively well aerated. Obtaining ultrasound of chest. Recommend aerosolized bronchodilators and incentive spirometry. Continue ceftrioxone and metronidazole. Objective Vital Signs - 12hr 12/26/18 12/26/18 12/26/18 01:01 02:50 07:33 Temperature 99.2 F 98.8 F Pulse Rate 81 80 Respiratory 20 18 18 Rate Blood Pressure 142/83 144/78 O2 Sat by Pulse 95 96 Oximetry 12/26/18 08:16 Temperature Pulse Rate Respiratory Rate Blood Pressure O2 Sat by Pulse 96 Oximetry Constitutional: no acute distress, alert Eyes: non-icteric ENT: oropharynx moist Neck: supple Ascultation: Bilateral: diminished breath sounds Percussion: Bilateral: dull (at the bases.) Cardiovascular: regular rate and rhythm Gastrointestinal: hypoactive bowel sounds, other (Tenderness at incision site.) Integumentary: normal Extremities: no cyanosis, no edema Neurologic: normal mental status, non-focal exam, pupils equal and round, CN II- XII normal Psychiatric: mood appropriate CBC and BMP: 12/26/18 05:16 12/26/18 05:16 ABG, PT/INR, D-dimer: ABG POC ABG pH 7.442 (7.35-7.45) 12/24/18 15:58 POC ABG pCO2 37.5 (35-45) 12/24/18 15:58 POC ABG pO2 61 (80-105) L 12/24/18 15:58 POC ABG HCO3 25.6 (22-26 mml/L) 12/24/18 15:58 POC ABG Total CO2 27 (23-27mmol/L) 12/24/18 15:58 POC ABG O2 Sat 92 12/24/18 15:58 PT/INR, D-dimer PT 15.5 Sec. (12.2-14.9) H 12/22/18 00:21 INR 1.26 (0.87-1.13) H 12/22/18 00:21 Abnormal lab findings: Abnormal Labs 12/20/18 12/20/18 12/20/18 11:34 11:34 11:34 WBC 20.2 H Hct 43.1 H Seg Neuts % (Manual) 82.0 H Lymphocytes % (Manual) 3.0 L Monocytes % (Manual) 13.0 H Seg Neutrophils # Man 16.6 H Lymphocytes # (Manual) 0.6 L Monocytes # (Manual) 2.6 H PT INR APTT 22.4 L POC ABG pO2 Potassium BUN Creatinine 0.6 L Glucose 167 H POC Glucose Calcium 10.3 H Total Bilirubin 1.80 H AST 204 H ALT 108 H Alkaline Phosphatase Lactate Dehydrogenase Total Protein Albumin Lipase 2716 H 12/20/18 12/21/18 12/21/18 11:34 04:47 08:42 WBC Hct Seg Neuts % (Manual) Lymphocytes % (Manual) Monocytes % (Manual) Seg Neutrophils # Man Lymphocytes # (Manual) Monocytes # (Manual) PT INR APTT POC ABG pO2 Potassium BUN Creatinine 0.5 L Glucose 111 H POC Glucose Calcium Total Bilirubin 1.70 H AST 56 H ALT 61 H Alkaline Phosphatase Lactate Dehydrogenase 301 H Total Protein Albumin 3.5 L Lipase 494 H 12/22/18 12/22/18 12/22/18 00:21 00:21 00:21 WBC 23.9 H Hct Seg Neuts % (Manual) Lymphocytes % (Manual) Monocytes % (Manual) Seg Neutrophils # Man Lymphocytes # (Manual) Monocytes # (Manual) PT 15.5 H INR 1.26 H APTT POC ABG pO2 Potassium BUN Creatinine 0.5 L Glucose 106 H POC Glucose Calcium Total Bilirubin 1.70 H AST ALT Alkaline Phosphatase Lactate Dehydrogenase Total Protein Albumin 3.3 L Lipase 147 H 12/23/18 12/23/18 12/23/18 04:57 04:57 17:36 WBC 17.4 H Hct Seg Neuts % (Manual) Lymphocytes % (Manual) Monocytes % (Manual) Seg Neutrophils # Man Lymphocytes # (Manual) Monocytes # (Manual) PT INR APTT POC ABG pO2 Potassium 3.4 L BUN 6 L Creatinine 0.4 L Glucose POC Glucose 112 H Calcium 8.3 L Total Bilirubin 3.80 H AST 134 H ALT 89 H Alkaline Phosphatase 141 H Lactate Dehydrogenase Total Protein 5.8 L Albumin 2.6 L Lipase 174 H 12/24/18 12/24/18 12/24/18 05:47 05:47 11:57 WBC 16.1 H Hct Seg Neuts % (Manual) Lymphocytes % (Manual) Monocytes % (Manual) Seg Neutrophils # Man Lymphocytes # (Manual) Monocytes # (Manual) PT INR APTT POC ABG pO2 Potassium 3.2 L BUN 6 L Creatinine 0.3 L Glucose POC Glucose 152 H Calcium Total Bilirubin 1.70 H AST 54 H ALT 58 H Alkaline Phosphatase Lactate Dehydrogenase Total Protein 6.1 L Albumin 2.6 L Lipase 12/24/18 12/24/18 12/25/18 15:58 17:30 00:14 WBC Hct Seg Neuts % (Manual) Lymphocytes % (Manual) Monocytes % (Manual) Seg Neutrophils # Man Lymphocytes # (Manual) Monocytes # (Manual) PT INR APTT POC ABG pO2 61 L Potassium BUN Creatinine Glucose POC Glucose 140 H 128 H Calcium Total Bilirubin AST ALT Alkaline Phosphatase Lactate Dehydrogenase Total Protein Albumin Lipase 12/25/18 12/25/18 12/25/18 04:58 04:58 07:03 WBC 14.8 H Hct Seg Neuts % (Manual) Lymphocytes % (Manual) Monocytes % (Manual) Seg Neutrophils # Man Lymphocytes # (Manual) Monocytes # (Manual) PT INR APTT POC ABG pO2 Potassium 3.2 L BUN 5 L Creatinine 0.3 L Glucose 110 H POC Glucose 107 H Calcium 8.0 L Total Bilirubin AST ALT Alkaline Phosphatase Lactate Dehydrogenase Total Protein 6.0 L Albumin 2.3 L Lipase 12/25/18 12/26/18 12/26/18 11:43 00:00 05:16 WBC 13.8 H Hct Seg Neuts % (Manual) Lymphocytes % (Manual) Monocytes % (Manual) Seg Neutrophils # Man Lymphocytes # (Manual) Monocytes # (Manual) PT INR APTT POC ABG pO2 Potassium BUN Creatinine Glucose POC Glucose 206 H 130 H Calcium Total Bilirubin AST ALT Alkaline Phosphatase Lactate Dehydrogenase Total Protein Albumin Lipase 12/26/18 12/26/18 05:16 06:40 WBC Hct Seg Neuts % (Manual) Lymphocytes % (Manual) Monocytes % (Manual) Seg Neutrophils # Man Lymphocytes # (Manual) Monocytes # (Manual) PT INR APTT POC ABG pO2 Potassium BUN 6 L Creatinine 0.3 L Glucose 114 H POC Glucose 115 H Calcium Total Bilirubin AST ALT Alkaline Phosphatase Lactate Dehydrogenase Total Protein Albumin Lipase CT scan - chest: report reviewed, image reviewed Additional Studies: CT scan of chest 12/25/18 MPRESSION: 1. Moderate bilateral pleural effusions with compressive atelectasis of most of the lower lobes. The upper lobes and middle lobe remain relatively well aerated. 2. Cholelithiasis.
--- NOTE | 2018-12-26 14:26 | Progress Note ---
Assessment and Plan Assessment and plan: Acute gallstone pancreatitis l Admitted to [facility] unit Dilaudid iv prn Acute resp failure with shortness of breath due to pulm edema, pleural effusion Supplemental Oxygen For Ultrasound chest in am Acute pulm edema lasix iv given Bilateral pleural effusion, moderate as per Ct Chest For Ultrasound of chest for further evaluation. Cholelithiasis and Choledocholithiasis s/p ERCP 12/22/18 s/p robotic assisted cholecystectomy 12/23/18 Leukocytosis ID Physician following Ceftriaxone 1g iv daily Hypertension Monitior BP Diabetes mellitus type 2 fingerstick q6h Hypothyroidism Continue Levothyroxine Full code status Discussed with Dr. Nunez Patient not stable for discharge yet because of shortness of breath and bilateral pleural effusion. History Interval history: Less Abdominal pain Less Shortness of breath Hospitalist Physical - Physical exam Narrative exam: Gen: Not in acute distress, sitting up in chair, HEENT: Normocephalic, atraumatic Neck: supple, no JVD Heart: S1 and S2 reg, no murmurs, rubs or gallop Lungs: Clear to auscultation, no wheeze Abd: soft, mild tender, no rebound, normal BS, surgical drain Ext: No edema, no clubbing, no cyanosis Neuro: Awake,alert, Oriented X 3. No focal neuro signs Psych: normal mood - Constitutional Vitals: Temp Pulse Resp BP Pulse Ox 98.8 F 80 18 144/78 96 12/26/18 07:33 12/26/18 07:33 12/26/18 07:33 12/26/18 07:33 12/26/18 08:16 General appearance: Present: no acute distress Results - Labs CBC & Chem 7: 12/26/18 05:16 12/26/18 05:16 Labs: Laboratory Last Values WBC 13.8 K/mm3 (4.5-11.0) H 12/26/18 05:16 RBC 3.78 M/mm3 (3.65-5.03) 12/26/18 05:16 Hgb 11.5 gm/dl (10.1-14.3) 12/26/18 05:16 Hct 34.3 % (30.3-42.9) 12/26/18 05:16 MCV 91 fl (79-97) 12/26/18 05:16 MCH 31 pg (28-32) 12/26/18 05:16 MCHC 34 % (30-34) 12/26/18 05:16 RDW 14.3 % (13.2-15.2) 12/26/18 05:16 Plt Count 263 K/mm3 (140-440) 12/26/18 05:16 Add Manual Diff Complete 12/20/18 11:34 Total Counted 100 12/20/18 11:34 Seg Neuts % (Manual) 82.0 % (40.0-70.0) H 12/20/18 11:34 1.0 % 12/20/18 11:34 3.0 % (13.4-35.0) L 12/20/18 11:34 Reactive Lymphs % (Man) 0 % 12/20/18 11:34 13.0 % (0.0-7.3) H 12/20/18 11:34 1.0 % (0.0-4.3) 12/20/18 11:34 0 % (0.0-1.8) 12/20/18 11:34 0 % 12/20/18 11:34 0 % 12/20/18 11:34 0 % 12/20/18 11:34 0 % 12/20/18 11:34 Nucleated RBC % Not Reportable 12/20/18 11:34 Seg Neutrophils # Man 16.6 K/mm3 (1.8-7.7) H 12/20/18 11:34 Band Neutrophils # 0.2 K/mm3 12/20/18 11:34 0.6 K/mm3 (1.2-5.4) L 12/20/18 11:34 Abs React Lymphs (Man) 0.0 K/mm3 12/20/18 11:34 2.6 K/mm3 (0.0-0.8) H 12/20/18 11:34 0.2 K/mm3 (0.0-0.4) 12/20/18 11:34 0.0 K/mm3 (0.0-0.1) 12/20/18 11:34 0.0 K/mm3 12/20/18 11:34 0.0 K/mm3 12/20/18 11:34 0.0 K/mm3 12/20/18 11:34 Blast Cells # 0.0 K/mm3 12/20/18 11:34 WBC Morphology Not Reportable 12/20/18 11:34 Hypersegmented Neuts Not Reportable 12/20/18 11:34 Hyposegmented Neuts Not Reportable 12/20/18 11:34 Hypogranular Neuts Not Reportable 12/20/18 11:34 Not Reportable 12/20/18 11:34 Not Reportable 12/20/18 11:34 Not Reportable 12/20/18 11:34 Not Reportable 12/20/18 11:34 Not Reportable 12/20/18 11:34 Not Reportable 12/20/18 11:34 Consistent w auto 12/20/18 11:34 Not Reportable 12/20/18 11:34 Plt Clumps, EDTA Not Reportable 12/20/18 11:34 Not Reportable 12/20/18 11:34 Not Reportable 12/20/18 11:34 Not Reportable 12/20/18 11:34 Plt Morphology Comment Not Reportable 12/20/18 11:34 RBC Morphology Normal 12/20/18 11:34 Dimorphic RBCs Not Reportable 12/20/18 11:34 Not Reportable 12/20/18 11:34 Not Reportable 12/20/18 11:34 Not Reportable 12/20/18 11:34 Not Reportable 12/20/18 11:34 Not Reportable 12/20/18 11:34 Not Reportable 12/20/18 11:34 Not Reportable 12/20/18 11:34 Not Reportable 12/20/18 11:34 Not Reportable 12/20/18 11:34 Not Reportable 12/20/18 11:34 Not Reportable 12/20/18 11:34 Not Reportable 12/20/18 11:34 Not Reportable 12/20/18 11:34 Not Reportable 12/20/18 11:34 Not Reportable 12/20/18 11:34 Not Reportable 12/20/18 11:34 Not Reportable 12/20/18 11:34 Not Reportable 12/20/18 11:34 Not Reportable 12/20/18 11:34 Acanthocytes (Spur) Not Reportable 12/20/18 11:34 Rouleaux Not Reportable 12/20/18 11:34 Not Reportable 12/20/18 11:34 Not Reportable 12/20/18 11:34 Not Reportable 12/20/18 11:34 Not Reportable 12/20/18 11:34 Hem Pathologist Commnt No 12/20/18 11:34 PT 15.5 Sec. (12.2-14.9) H 12/22/18 00:21 INR 1.26 (0.87-1.13) H 12/22/18 00:21 APTT 22.4 Sec. (24.2-36.6) L 12/20/18 11:34 POC ABG pH 7.442 (7.35-7.45) 12/24/18 15:58 POC ABG pCO2 37.5 (35-45) 12/24/18 15:58 POC ABG pO2 61 (80-105) L 12/24/18 15:58 POC ABG HCO3 25.6 (22-26 mml/L) 12/24/18 15:58 POC ABG Total CO2 27 (23-27mmol/L) 12/24/18 15:58 POC ABG O2 Sat 92 12/24/18 15:58 POC ABG Base Excess 1 ((-2) - (+3)mmol/L) 12/24/18 15:58 20 % 12/24/18 15:58 Sodium 138 mmol/L (137-145) 12/26/18 05:16 Potassium 4.3 mmol/L (3.6-5.0) D 12/26/18 05:16 Chloride 101.3 mmol/L (98-107) 12/26/18 05:16 Carbon Dioxide 26 mmol/L (22-30) 12/26/18 05:16 15 mmol/L 12/26/18 05:16 BUN 6 mg/dL (7-17) L 12/26/18 05:16 0.3 mg/dL (0.7-1.2) L 12/26/18 05:16 Estimated GFR > 60 ml/min 12/26/18 05:16 20 % 12/26/18 05:16 Glucose 114 mg/dL (65-100) H 12/26/18 05:16 POC Glucose 115 (70-105) H 12/26/18 06:40 Calcium 8.5 mg/dL (8.4-10.2) 12/26/18 05:16 1.20 mg/dL (0.1-1.2) 12/25/18 04:58 AST 33 units/L (5-40) 12/25/18 04:58 ALT 41 units/L (7-56) 12/25/18 04:58 117 units/L (35-129) 12/25/18 04:58 301 units/L (91-180) H 12/20/18 11:34 6.0 g/dL (6.3-8.2) L 12/25/18 04:58 2.3 g/dL (3.9-5) L 12/25/18 04:58 0.6 % 12/25/18 04:58 26 units/L (13-60) 12/24/18 05:47 Yellow (Yellow) 12/20/18 Unknown Clear (Clear) 12/20/18 Unknown 5.0 (5.0-7.0) 12/20/18 Unknown Ur Specific [place] 1.014 (1.003-1.030) 12/20/18 Unknown 30 mg/dl mg/dL (Negative) 12/20/18 Unknown Neg mg/dL (Negative) 12/20/18 Unknown Neg mg/dL (Negative) 12/20/18 Unknown Neg (Negative) 12/20/18 Unknown Neg (Negative) 12/20/18 Unknown Neg (Negative) 12/20/18 Unknown < 2.0 mg/dL (<2.0) 12/20/18 Unknown Ur Leukocyte Esterase Neg (Negative) 12/20/18 Unknown 1.0 /HPF (0.0-6.0) 12/20/18 Unknown 1.0 /HPF (0.0-6.0) 12/20/18 Unknown Active Medications - Current Medications Current Medications: Generic Name Dose Route Start Last Admin Trade Name Freq PRN Reason Stop Dose Admin Acetaminophen 650 mg 12/20/18 15:48 Tylenol PO Q4H PRN Pain MILD(1-3)/Fever >100.5/LEE Albuterol 2.5 mg 12/20/18 15:48 12/23/18 18:25 Proventil IH 2.5 mg Q4HRT PRN Administration Shortness Of Breath Heparin Sodium (Porcine) 5,000 unit 12/25/18 16:30 12/26/18 06:14 Heparin SUB-Q 5,000 unit Q8HR ANGEL Administration Hydromorphone HCl 0.5 mg 12/20/18 15:48 12/26/18 11:13 Dilaudid IV 0.5 mg Q3H PRN Administration Pain , Severe (7-10) Ceftriaxone Sodium 1 gm in 50 mls @ 100 mls/hr 12/21/18 10:00 12/26/18 09:45 Rocephin/Ns 1 Gm/50 Ml IV 100 mls/hr Q24HR ANGEL Administration Protocol Metronidazole 500 mg in 100 mls @ 100 mls/hr 12/22/18 16:00 12/26/18 06:14 Flagyl 500 Mg/100 Ml IV 100 mls/hr Q8HR ANGEL Administration Protocol Ondansetron HCl 4 mg 12/20/18 15:48 12/23/18 13:10 Zofran IV 4 mg Q8H PRN Administration Nausea And Vomiting Oxycodone/Acetaminophen 1 tab 12/24/18 07:30 12/26/18 00:01 Percocet 5/325 PO 1 tab Q4H PRN Administration Pain, Moderate (4-6) Pantoprazole Sodium 40 mg 12/21/18 18:00 12/26/18 11:18 Protonix IV 40 mg QDAY ANGEL Administration Sodium Chloride 10 ml 12/20/18 22:00 12/26/18 09:42 Sodium Chloride Flush Syringe 10 Ml IV 10 ml BID ANGEL Administration Sodium Chloride 10 ml 12/20/18 15:48 12/24/18 14:04 Sodium Chloride Flush Syringe 10 Ml IV 10 ml PRN PRN Administration LINE FLUSH Nutrition/Malnutrition Assess - Dietary Evaluation Nutrition/Malnutrition Findings: Nutrition Notes Start: 12/21/18 14:08 Freq: Status: Active Protocol: Document 12/24/18 16:59 RM (Rec: 12/24/18 17:08 RM [id number]) Nutrition Notes Initial or Follow up Reassessment Current Diagnosis Diabetes,Hypertension Other Pertinent Diagnosis SIRS, acute pancreatitis, GERD , S/P cholestectomy Current Diet Cardiac/Consistent CHO Labs/Tests Reviewed Pertinent Medications Reviewed Height 5 ft 4.5 in Weight 61.7 kg Usual Body Weight 62.73 kg [place] Body Weight (kg) 55.68 BMI 22.9 Subjective/Other Information Pt stated that her appetite is alright and that she ate 25% of her breakfast. Stated prior to this visit she had not eaten since Thursday (X 4 days). Admitted to N/V [employer]OR[employer] but none here. Stated UBW was 138 lbs 3 months ago. Percent of energy/protein needs met: 38%/34% Burn Absent Trauma Absent #1 Nutrition Diagnosis Altered GI function Diagnosis Progress(for reassessment Continues documentation) Is patient on ventilator? No Is Patient Ambulatory and/or Out of Bed No REE-([facility]-confined to bed) [phone] Calculation Used for Recommendations [facility] Additional Notes Pro needs 1.2-1.5g/k-93g/ day Fluid needs 1ml/kcal Nutrition Intervention Change Diet Order: Continue current Add Supplement/Snack (indicate name/kcal Glucerna butter pecan, /protein ) chocolate 1 daily Provides kCal: 220 Provides Protein (gm) 10 Goal #1 Meet at least 75% of calorie and protein needs via PO and ONS intakes Anticipated Discharge Needs: Cardiac/Consistent CHO diet Follow-Up By: 12/27/18 Additional Comments Follow for PO and ONS intakes
[2018-12-26] MEDS: ATROVENT IH SCH (20:52)
[2018-12-26] MEDS: PROVENTIL IH SCH (20:53)
[2018-12-27] MEDS: PROVENTIL IH SCH ×3 (02:20→13:23)
[2018-12-27] MEDS: ATROVENT IH SCH ×3 (02:20→13:23)
[2018-12-27 05:15] LABS: Hematocrit 35.2 % (30.3-42.9); Hemoglobin 11.7 gm/dl (10.1-14.3); Mean Corpuscular HGB Conc 33 % (30-34); Mean Corpuscular Volume 91 fl (79-97); Platelet Count 293 K/mm3 (140-440); Red Blood Count 3.86 M/mm3 (3.65-5.03); Red Cell Distribution Width 14.1 % (13.2-15.2)
[2018-12-27 05:37] LABS: BUN/Creatinine Ratio 20; Blood Urea Nitrogen 6 mg/dL (7-17); Calcium 8.4 mg/dL (8.4-10.2); Hemolysis Index 12
[2018-12-27] MEDS: HEPARIN SUB-Q SCH ×2 (06:10→13:28)
[2018-12-27] MEDS: FLAGYL 500 MG/100 ML 500 MG/100 ML BAG IV SCH ×2 (06:10→13:28)
[2018-12-27] MEDS: ZOFRAN IV PRN (08:16)
--- NOTE | 2018-12-27 09:50 | Ultrasound Report ---
ULTRASOUND CHEST HISTORY: Bilateral pleural effusions TECHNIQUE: Transabdominal grayscale ultrasound images. Findings. Targeted ultrasound was performed on both sides the chest. No right pleural fluid is demonstrated. Tr soo left pleural effusion is identified measuring 70 cc. IMPRESSION: Trace left pleural effusion estimated at 70 cc. Signer Name: Aristeo Caldera Jr, MD Signed: 12/27/2018 9:46 AM Workstation Name: [id number]
[2018-12-27] MEDS ORDERED: PROTONIX PO SCH (10:00)
[2018-12-27] MEDS: SODIUM CHLORIDE FLUSH SYRINGE 10 ML IV SCH (11:32)
[2018-12-27] MEDS: ROCEPHIN/NS 1 GM/50 ML 1 GM/50 ML BAG IV SCH (11:32)
--- NOTE | 2018-12-27 12:00 | Discharge Summary ---
<ABDI LUCIANO - Last Filed: 12/27/18 13:05> Providers - Providers Date of Admission: 12/20/18 15:48 Attending physician: YANDEL MCFADDEN 12/21/18 08:31 Consult to Physician [CONS] Routine Comment: called office / jael Consulting Provider: NANDO ZALDIVAR Physician Instructions: Reason For Exam: Axcute pancreatitis 12/21/18 08:33 Physical Therapy Evaluation and Treat [CONS] Routine Comment: Reason For Exam: Weakness 12/21/18 14:11 Consult to Physician [CONS] Routine Comment: called office/ jael Consulting Provider: ABDI LUCIANO Physician Instructions: Reason For Exam: Cholelithiasis, choledocholithiasis 12/22/18 10:21 Consult to Physician [CONS] Routine Comment: Consulting Provider: ISAAK SYED Physician Instructions: Reason For Exam: Leukocytosis, cholelithiasis 12/24/18 13:13 Consult to Physician [CONS] Routine Comment: seen patient/ jael Consulting Provider: FLORES ABAD Physician Instructions: Reason For Exam: shortness of breath Primary care physician: ADAMA QUINN Hospitalization Condition: Fair Disposition: DC/[place]-06 HOME UNDER HOME [facility] Exam - Constitutional Vitals: Temp Pulse Resp BP Pulse Ox 98.9 F 89 18 157/84 95 12/27/18 07:29 12/27/18 08:17 12/27/18 08:17 12/27/18 07:29 12/27/18 08:17 Plan Activity: advance as tolerated, other (no driving if taking prescription pain medications) Diet: low fat Wound: open to air, other (may shower, pat incisions dry and do not scrub) Follow up with: ADAMA QUINN MD [Primary Care Provider] - 3-5 Days ABDI LUCIANO DO [Staff Physician] - 10 Days Prescriptions: Ciprofloxacin HCl [Ciprofloxacin TAB] 500 mg PO Q12HR 3 Days tab metroNIDAZOLE [Flagyl] 500 mg PO Q8HR 3 Days tablet HYDROcodone/APAP 5-325 [[place] 5/325] 1 each PO Q6HR PRN #10 tablet PRN Reason: Pain Pantoprazole [Protonix TAB] 40 mg PO DAILY #30 tablet <YANDEL MCFADDEN - Last Filed: 12/27/18 15:33> Providers - Providers Date of Admission: 12/20/18 15:48 Date of discharge: 12/27/18 Attending physician: YANDEL MCFADDEN 12/21/18 08:31 Consult to Physician [CONS] Routine Comment: called office / jael Consulting Provider: NANDO ZALDIVAR Physician Instructions: Reason For Exam: Axcute pancreatitis 12/21/18 08:33 Physical Therapy Evaluation and Treat [CONS] Routine Comment: Reason For Exam: Weakness 12/21/18 14:11 Consult to Physician [CONS] Routine Comment: called office/ jael Consulting Provider: ABDI LUCIANO Physician Instructions: Reason For Exam: Cholelithiasis, choledocholithiasis 12/22/18 10:21 Consult to Physician [CONS] Routine Comment: Consulting Provider: ISAAK SYED Physician Instructions: Reason For Exam: Leukocytosis, cholelithiasis 12/24/18 13:13 Consult to Physician [CONS] Routine Comment: seen patient/ jael Consulting Provider: FLORES ABAD Physician Instructions: Reason For Exam: shortness of breath Primary care physician: ADAMA QUINN Core Measure Documentation - Palliative Care Palliative Care/ Comfort Measures: Not Applicable - Core Measures Any of the following diagnoses?: none Exam - Constitutional Vitals: Temp Pulse Resp BP Pulse Ox 98.9 F 89 18 157/84 95 12/27/18 07:29 12/27/18 08:17 12/27/18 08:17 12/27/18 07:29 12/27/18 08:17 Plan Activity: advance as tolerated Diet: low fat, low cholesterol, low salt Special Instructions: physical therapy, home health RN Additional Instructions: 1.Follow up with PCP in 1 week. 2.Follow up with Dr. Luciano in 1 week. 3.Follow up with Dr. Abad, Pulmonology in 1 week. 4.Follow up with Dr. Zaldivar in 1 week
--- NOTE | 2018-12-27 13:09 | Progress Note ---
Assessment and Plan Patient alert, awake. Resting on 2 litres O2. O2 saturation 95%.No complaint of chest pain, shortness of breath and cough. Patient S/P cholecystectomy for gall stone pancreatitis. CAT scan chest done 12/25/18 1. Moderate bilateral pleural effusions with compressive atelectasis of most of the lower lobes. The upper lobes and middle lobe remain relatively well aerated. Ultrasound of chest reported trace left pleural effusion about 70cc's. Recommend aerosolized bronchodilators and incentive spirometry. Continue ceftrioxone and metronidazole.. If pt is discharged recommend to follow with me in 1 week for pulmonary follow up - Patient Problems (1) SIRS (systemic inflammatory response syndrome) Current Visit: Yes Status: Acute Plan to address problem: O2 2 litres via nasal canula. Patient has mild leukocytosis. Patient is on ceftrioxone and Metronidazole. (2) Choledocholithiasis Current Visit: Yes Status: Acute Plan to address problem: Patient S/P cholecystectomy. Continue Nasal O2 and incentive spirometry. Aerosolized bronchodilators. (3) Diabetes Current Visit: Yes Status: Acute Plan to address problem: Management as per primary care. (4) GERD (gastroesophageal reflux disease) Current Visit: Yes Status: Acute Qualifiers: Esophagitis presence: without esophagitis Qualified Code(s): K21.9 - Ga stro-esophageal reflux disease without esophagitis Plan to address problem: Patient is on protonix. (5) Gallstone pancreatitis Current Visit: Yes Status: Acute Plan to address problem: S/P Cholecystectomy. Continue nasal O2 and incentive spirometry. (6) HTN (hypertension) Current Visit: Yes Status: Acute Qualifiers: Hypertension type: essential hypertension Qualified Code(s): I10 - Essential (primary) hypertension Plan to address problem: Management as per primary care. (7) Pleural effusion Current Visit: Yes Status: Acute Plan to address problem: Ultrasound of the chest reported trace left pleural effusion about 70mL. (8) Atelectasis of both lungs Current Visit: Yes Status: Acute Plan to address problem: O2 supplementation. Incentive spirometry. Albuterol/atrovent aerosol treatments q 6 hours. Subjective Date of service: 12/27/18 Interval history: Patient alert, awake. Resting on 2 litres O2. O2 saturation 95%.No complaint of chest pain, shortness of breath and cough. Patient S/P cholecystectomy for gall stone pancreatitis. CAT scan chest done 12/25/18 1. Moderate bilateral pleural effusions with compressive atelectasis of most of the lower lobes. The upper lobes and middle lobe remain relatively well aerated. Ultrasound of chest reported trace left pleural effusion about 70cc's. Recommend aerosolized bronchodilators and incentive spirometry. Continue ceftrioxone and metronidazole. Objective Vital Signs - 12hr 12/27/18 12/27/18 12/27/18 02:31 07:29 08:17 Temperature 98.9 F 98.9 F Pulse Rate 85 78 Pulse Rate [ 89 Anterior Bilateral Throughout] Respiratory 14 18 Rate Respiratory 18 Rate [Anterior Bilateral Throughout] Blood Pressure 145/85 157/84 O2 Sat by Pulse 93 95 95 Oximetry Constitutional: no acute distress, alert Eyes: non-icteric ENT: oropharynx moist Neck: supple Ascultation: Bilateral: diminished breath sounds Percussion: Bilateral: dull (at the bases.) Cardiovascular: regular rate and rhythm Gastrointestinal: hypoactive bowel sounds, other (Tenderness at incision site.) Integumentary: normal Extremities: no cyanosis, no edema Neurologic: normal mental status, non-focal exam, pupils equal and round, CN II- XII normal Psychiatric: mood appropriate CBC and BMP: 12/27/18 04:50 12/27/18 04:50 ABG, PT/INR, D-dimer: ABG POC ABG pH 7.442 (7.35-7.45) 12/24/18 15:58 POC ABG pCO2 37.5 (35-45) 12/24/18 15:58 POC ABG pO2 61 (80-105) L 12/24/18 15:58 POC ABG HCO3 25.6 (22-26 mml/L) 12/24/18 15:58 POC ABG Total CO2 27 (23-27mmol/L) 12/24/18 15:58 POC ABG O2 Sat 92 12/24/18 15:58 PT/INR, D-dimer PT 15.5 Sec. (12.2-14.9) H 12/22/18 00:21 INR 1.26 (0.87-1.13) H 12/22/18 00:21 Abnormal lab findings: Abnormal Labs 12/20/18 12/20/18 12/20/18 11:34 11:34 11:34 WBC 20.2 H Hct 43.1 H Seg Neuts % (Manual) 82.0 H Lymphocytes % (Manual) 3.0 L Monocytes % (Manual) 13.0 H Seg Neutrophils # Man 16.6 H Lymphocytes # (Manual) 0.6 L Monocytes # (Manual) 2.6 H PT INR APTT 22.4 L POC ABG pO2 Potassium BUN Creatinine 0.6 L Glucose 167 H POC Glucose Calcium 10.3 H Total Bilirubin 1.80 H AST 204 H ALT 108 H Alkaline Phosphatase Lactate Dehydrogenase Total Protein Albumin Lipase 2716 H 12/20/18 12/21/18 12/21/18 11:34 04:47 08:42 WBC Hct Seg Neuts % (Manual) Lymphocytes % (Manual) Monocytes % (Manual) Seg Neutrophils # Man Lymphocytes # (Manual) Monocytes # (Manual) PT INR APTT POC ABG pO2 Potassium BUN Creatinine 0.5 L Glucose 111 H POC Glucose Calcium Total Bilirubin 1.70 H AST 56 H ALT 61 H Alkaline Phosphatase Lactate Dehydrogenase 301 H Total Protein Albumin 3.5 L Lipase 494 H 12/22/18 12/22/18 12/22/18 00:21 00:21 00:21 WBC 23.9 H Hct Seg Neuts % (Manual) Lymphocytes % (Manual) Monocytes % (Manual) Seg Neutrophils # Man Lymphocytes # (Manual) Monocytes # (Manual) PT 15.5 H INR 1.26 H APTT POC ABG pO2 Potassium BUN Creatinine 0.5 L Glucose 106 H POC Glucose Calcium Total Bilirubin 1.70 H AST ALT Alkaline Phosphatase Lactate Dehydrogenase Total Protein Albumin 3.3 L Lipase 147 H 12/23/18 12/23/18 12/23/18 04:57 04:57 17:36 WBC 17.4 H Hct Seg Neuts % (Manual) Lymphocytes % (Manual) Monocytes % (Manual) Seg Neutrophils # Man Lymphocytes # (Manual) Monocytes # (Manual) PT INR APTT POC ABG pO2 Potassium 3.4 L BUN 6 L Creatinine 0.4 L Glucose POC Glucose 112 H Calcium 8.3 L Total Bilirubin 3.80 H AST 134 H ALT 89 H Alkaline Phosphatase 141 H Lactate Dehydrogenase Total Protein 5.8 L Albumin 2.6 L Lipase 174 H 12/24/18 12/24/18 12/24/18 05:47 05:47 11:57 WBC 16.1 H Hct Seg Neuts % (Manual) Lymphocytes % (Manual) Monocytes % (Manual) Seg Neutrophils # Man Lymphocytes # (Manual) Monocytes # (Manual) PT INR APTT POC ABG pO2 Potassium 3.2 L BUN 6 L Creatinine 0.3 L Glucose POC Glucose 152 H Calcium Total Bilirubin 1.70 H AST 54 H ALT 58 H Alkaline Phosphatase Lactate Dehydrogenase Total Protein 6.1 L Albumin 2.6 L Lipase 12/24/18 12/24/18 12/25/18 15:58 17:30 00:14 WBC Hct Seg Neuts % (Manual) Lymphocytes % (Manual) Monocytes % (Manual) Seg Neutrophils # Man Lymphocytes # (Manual) Monocytes # (Manual) PT INR APTT POC ABG pO2 61 L Potassium BUN Creatinine Glucose POC Glucose 140 H 128 H Calcium Total Bilirubin AST ALT Alkaline Phosphatase Lactate Dehydrogenase Total Protein Albumin Lipase 12/25/18 12/25/18 12/25/18 04:58 04:58 07:03 WBC 14.8 H Hct Seg Neuts % (Manual) Lymphocytes % (Manual) Monocytes % (Manual) Seg Neutrophils # Man Lymphocytes # (Manual) Monocytes # (Manual) PT INR APTT POC ABG pO2 Potassium 3.2 L BUN 5 L Creatinine 0.3 L Glucose 110 H POC Glucose 107 H Calcium 8.0 L Total Bilirubin AST ALT Alkaline Phosphatase Lactate Dehydrogenase Total Protein 6.0 L Albumin 2.3 L Lipase 12/25/18 12/26/18 12/26/18 11:43 00:00 05:16 WBC 13.8 H Hct Seg Neuts % (Manual) Lymphocytes % (Manual) Monocytes % (Manual) Seg Neutrophils # Man Lymphocytes # (Manual) Monocytes # (Manual) PT INR APTT POC ABG pO2 Potassium BUN Creatinine Glucose POC Glucose 206 H 130 H Calcium Total Bilirubin AST ALT Alkaline Phosphatase Lactate Dehydrogenase Total Protein Albumin Lipase 12/26/18 12/26/18 12/26/18 05:16 06:40 18:34 WBC Hct Seg Neuts % (Manual) Lymphocytes % (Manual) Monocytes % (Manual) Seg Neutrophils # Man Lymphocytes # (Manual) Monocytes # (Manual) PT INR APTT POC ABG pO2 Potassium BUN 6 L Creatinine 0.3 L Glucose 114 H POC Glucose 115 H 187 H Calcium Total Bilirubin AST ALT Alkaline Phosphatase Lactate Dehydrogenase Total Protein Albumin Lipase 12/26/18 12/27/18 12/27/18 23:54 04:50 04:50 WBC 11.2 H Hct Seg Neuts % (Manual) Lymphocytes % (Manual) Monocytes % (Manual) Seg Neutrophils # Man Lymphocytes # (Manual) Monocytes # (Manual) PT INR APTT POC ABG pO2 Potassium BUN 6 L Creatinine 0.3 L Glucose 134 H POC Glucose 171 H Calcium Total Bilirubin AST ALT Alkaline Phosphatase Lactate Dehydrogenase Total Protein Albumin Lipase 12/27/18 12/27/18 06:21 11:22 WBC Hct Seg Neuts % (Manual) Lymphocytes % (Manual) Monocytes % (Manual) Seg Neutrophils # Man Lymphocytes # (Manual) Monocytes # (Manual) PT INR APTT POC ABG pO2 Potassium BUN Creatinine Glucose POC Glucose 129 H 159 H Calcium Total Bilirubin AST ALT Alkaline Phosphatase Lactate Dehydrogenase Total Protein Albumin Lipase Additional Studies: Ultrasound of the chest reported trace left pleural effusion about 70ml
[2018-12-27 14:01] VITALS: BP 158/86
== END 2018-12-27 16:32 | disposition home health service (06) | DRG 417 ==
LOC: ED 10:22 → 2B-ACE 15:48
PROVIDERS: ADMIT Internal Medicine; ATTEND Internal Medicine
PROC: 3E0234Z Introduction of Serum, Toxoid and Vaccine into Muscle, Percutaneous Approach (ICD-10-PCS; 2018-12-21)
PROC: BF141ZZ Fluoroscopy of Gallbladder, Bile Ducts and Pancreatic Ducts using Low Osmolar Contrast (ICD-10-PCS; 2018-12-22)
PROC: 0FT44ZZ Resection of Gallbladder, Percutaneous Endoscopic Approach (ICD-10-PCS; principal; 2018-12-23)
PROC: 8E0W4CZ Robotic Assisted Procedure of Trunk Region, Percutaneous Endoscopic Approach (ICD-10-PCS; 2018-12-23)
PROC: 0DN94ZZ Release Duodenum, Percutaneous Endoscopic Approach (ICD-10-PCS; 2018-12-23)
PROC: 0DN64ZZ Release Stomach, Percutaneous Endoscopic Approach (ICD-10-PCS; 2018-12-23)
PROC: 0FN44ZZ Release Gallbladder, Percutaneous Endoscopic Approach (ICD-10-PCS; 2018-12-23)
PROC: 4A033R1 Measurement of Arterial Saturation, Peripheral, Percutaneous Approach (ICD-10-PCS; 2018-12-24)
DX: K80.62 Calculus of gallbladder and bile duct with acute cholecystitis without obstruction (principal); K85.10 Biliary acute pancreatitis without necrosis or infection; J96.00 Acute respiratory failure, unspecified whether with hypoxia or hypercapnia; J81.0 Acute pulmonary edema; J98.11 Atelectasis; R65.10 Systemic inflammatory response syndrome (SIRS) of non-infectious origin without acute organ dysfunction; J90 Pleural effusion, not elsewhere classified; I10 Essential (primary) hypertension; E11.9 Type 2 diabetes mellitus without complications; K66.0 Peritoneal adhesions (postprocedural) (postinfection); K74.60 Unspecified cirrhosis of liver; K82.8 Other specified diseases of gallbladder; D72.829 Elevated white blood cell count, unspecified; E03.9 Hypothyroidism, unspecified; K21.9 Gastro-esophageal reflux disease without esophagitis; Z79.4 Long term (current) use of insulin; Z90.710 Acquired absence of both cervix and uterus; Z82.49 Family history of ischemic heart disease and other diseases of the circulatory system; Z83.3 Family history of diabetes mellitus; Z79.899 Other long term (current) drug therapy; Z23 Encounter for immunization
CPT/HCPCS: 36415; 36600; 71045; 71260; 74177; 74330; 76604; 76700; 80048; 80053; 81001; 82803; 82962; 83615; 83690; 85007; 85025; 85027; 85610; 85730; 87040; 88304; 90732; 93005; 93010; 94640; 94760; G0378; C1726; C9113; J0696; J1170; J1644; J1940; J2250; J2270; J2370; J2405; J2543; J2704; J3010; J3480; J7030; J7120; Q9967